=== PATIENT | female | born 1940 | race Caucasian/White ===

== ENCOUNTER 2016-11-23 09:56 | Emergency (ER) | payer OTHER ==
[~2016-11-23 09:56] MED LIST: AMLO2.5T PO; ASCO100061 PO; CALC-338 PO; CALC1TAB56 PO; CIPR-255 PO; FLUT0.0529 NAE; MULT-506 PO; PARO1TAB27 PO; SILDINJ PO; SIMV20TA2 PO; TYLOTC500 PO; WARF-246 PO; [UNRECOGNIZED DRUG - CODE] IV
[2016-11-23 10:00] VITALS: TEMP 36.6; Ht 176.5 cm
[2016-11-23 10:20] VITALS: O2SAT 97
[2016-11-23] MEDS ORDERED: ZNTT/150 PO (10:34)
[2016-11-23] MEDS ORDERED: RIOC1TAB7 PO (10:34)
--- NOTE | 2016-11-23 11:00 | EMERGENCY ROOM VISIT NOTE ---
History Report prepared by Nathalia: Arnav Vela Under the Supervision of: Dr. Abida Rodríguez D.O. First contact with patient: 10:11 Chief Complaint: RESPIRATORY PROBLEMS Stated Complaint: TROUBLE BREATHING History of Present Illness The patient is a 76 year old female who presents to the Emergency Room with complaints of persistent cough that started last night. The patient notes that she has been visiting her in the ICU all week, but has not been wearing a mask. She notes that last night when she returned home she started coughing and couldn't stop all night long. She notes that the cough is causing her lung discomfort and it is productive with green and brown phlegm. The patient notes that she has a history of pulmonary embolus and hypertension. She has been on medications for these and has been doing well. The patient had her flu shot this year. She denies nausea, vomiting, fever, or chills. The patient denies history of pneumonia or bronchitis. Source of History: patient Onset: last night Position: other (global) Associated Symptoms: No chills, No fevers, No nausea, No vomiting Note: Other associated symptoms: lung discomfort, productive with green and brown phlegm Review of Systems See HPI for pertinent positives & negatives. A total of 10 systems reviewed and were otherwise negative. Past Medical & Surgical Medical Problems: (1) Appendectomy (2) Cholecystectomy (3) Diverticulosis (4) Dyslipidemia (5) Gastroesophageal reflux disease (6) Heart disease (7) Hemorrhoidectomy (8) Hyperlipidemia (9) IBS (10) IVC filter placement (11) Osteoarthritis (12) Pulmonary embolism (13) Pulmonary hypertension (14) Venous insufficiency Surgical Problems: (1) colindres catheter changed (2) pulmonary artery embolectomy Family History Cancer FATHER GRANDFATHER GRANDMOTHER Diabetes mellitus SISTER Heart disease Kidney disease Lung disease Stroke MOTHER Social History Smoking Status: Never Smoker Alcohol Use: none Drug Use: none Marital Status: Housing Status: lives with significant other Occupation Status: retired Current/Historical Medications Scheduled Amlodipine (Norvasc), 2.5 MG PO DAILY Ascorbic Acid (Ascorbic Acid), 1,000 MG PO DAILY Azithromycin (Zithromax), 500 MG PO DAILY Calcium Citrate-Vitamin D (Citracal/Vitamin D), 1 TAB PO BID Calcium-Magnesium W/ Vitamin D (Citracal Calcium+D Slow R), 16.5 MG PO QAM Multivitamin (Multivitamin), 1 TAB PO DAILY Paroxetine (Paxil), 20 MG PO DAILY Ranitidine (Zantac), 150 MG PO BID Riociguat (Adempas), 2 MG PO TID Sildenafil Citrate (Revatio), 20 MG PO TID Simvastatin (Zocor), 20 MG PO HS Warfarin Sodium (Warfarin Sodium), 5 MG PO DIRECTED Warfarin Sodium (Warfarin Sodium), 2.5 MG PO WK Scheduled PRN Acetaminophen (Tylenol), 1,500 MG PO BID PRN for Pain Fluticasone Propionate (Nasal) (Flonase), 2 SPRAYS CHRISTINE DAILY PRN for HUMIDITY Allergies Coded Allergies: Nitrates, Organic (Unverified Allergy, Unknown, UNKNOWN, 11/23/16) Physical Exam Vital Signs Date Time Temp Pulse Resp B/P Pulse Ox O2 Delivery O2 Flow Rate FiO2 11/23/16 14:00 76 20 98/64 98 11/23/16 13:14 71 11/23/16 12:00 68 20 128/68 96 Room Air 11/23/16 10:20 97 Room Air 11/23/16 10:17 98 Room Air 11/23/16 10:11 77 11/23/16 10:00 36.6 87 18 129/77 97 Room Air Physical Exam HEENT: Head - normocephalic and atraumatic Pupils are equal, round, and reactive to light. Extraocular eye muscles are intact, and sclera are anicteric. Nose - moist nasal mucosa without discharge. Mouth - moist buccal mucosa. Oropharynx is nonerythematous and there is no tonsillar exudate or edema noted. Neck: Supple; no JVD, nuchal rigidity, cervical lymphadenopathy, or auscultated bruits. Heart: Regular rate and rhythm. There is a normal S1 and S2 with no murmurs, clicks, or gallops appreciated. Lungs: Clear to auscultation bilaterally with no wheezes, rales, or rhonchi. Abdomen: Soft, completely nontender, nondistended, with good bowel sounds. There are no palpable pulsatile masses or hepatosplenomegaly. There is no guarding, rigidity, or rebound noted. Extremities: No evidence of cyanosis, clubbing, or edema. There are easily palpable peripheral pulses. Skin: warm and dry with good turgor and no rashes. Medical Decision & Procedures ER Provider Diagnostic Interpretation: X-ray results as stated below per interpretation by me and the radiologist: CHEST 2 VIEWS ROUTINE HISTORY: cough COMPARISON: Chest 04/15/2015. FINDINGS: There are poststernotomy changes. The heart is top normal in size. Bibasilar interstitial thickening persists. No pleural effusions. No pneumothorax. The lungs are mildly hyperexpanded. No new focal lung consolidations. No evidence for pulmonary edema. There is a 4 mm nodular density within the left lung base adjacent to the cardiac apex. This was likely present on the prior study and does not appear to be significantly changed. IMPRESSION: 1. No change in the mild bibasilar interstitial thickening. Therefore, this is likely chronic. 2. No new focal lung consolidations to suggest pneumonia. 3. Mildly hyperexpanded lungs. 4. Stable 4 mm nodular density at the lingula. Electronically signed by: Dario Mobley M.D. 11/23/2016 11:56 AM Dictated Date/Time: 11/23/2016 11:53 AM Laboratory Results 11/23/16 10:10 Red Blood Count 4.36, Mean Corpuscular Volume 95.9, Mean Corpuscular Hemoglobin 31.9, Mean Corpuscular Hemoglobin Concent 33.3, Mean Platelet Volume 10.9, Neutrophils (%) (Auto) 53.8, Lymphocytes (%) (Auto) 33.3, Monocytes (%) (Auto) 11.4, Eosinophils (%) (Auto) 0.9, Basophils (%) (Auto) 0.4, Neutrophils # (Auto ) 2.45, Lymphocytes # (Auto) 1.52, Monocytes # (Auto) 0.52, Eosinophils # (Auto ) 0.04, Basophils # (Auto) 0.02 11/23/16 10:10 Test 11/23/16 10:10 White Blood Count 4.56 K/uL (4.8-10.8) Red Blood Count 4.36 M/uL (4.2-5.4) Hemoglobin 13.9 g/dL (12.0-16.0) Hematocrit 41.8 % (37-47) Mean Corpuscular Volume 95.9 fL (80-100) Mean Corpuscular Hemoglobin 31.9 pg (25-34) Mean Corpuscular Hemoglobin Concent 33.3 g/dl (32-36) Platelet Count 253 K/uL (130-400) Mean Platelet Volume 10.9 fL (7.4-10.4) Neutrophils (%) (Auto) 53.8 % Lymphocytes (%) (Auto) 33.3 % Monocytes (%) (Auto) 11.4 % Eosinophils (%) (Auto) 0.9 % Basophils (%) (Auto) 0.4 % Neutrophils # (Auto) 2.45 K/uL (1.4-6.5) Lymphocytes # (Auto) 1.52 K/uL (1.2-3.4) Monocytes # (Auto) 0.52 K/uL (0.11-0.59) Eosinophils # (Auto) 0.04 K/uL (0-0.5) Basophils # (Auto) 0.02 K/uL (0-0.2) RDW Standard Deviation 47.3 fL (36.4-46.3) RDW Coefficient of Variation 13.5 % (11.5-14.5) Immature Granulocyte % (Auto) 0.2 % Immature Granulocyte # (Auto) 0.01 K/uL (0.00-0.02) Prothrombin Time 28.2 SECONDS (9.0-12.0) Prothromb Time International Ratio 2.5 (0.9-1.1) Activated Partial Thromboplast Time 42.0 SECONDS (21.0-31.0) Partial Thromboplastin Ratio 1.6 Anion Gap 12.0 mmol/L (3-11) Estimated GFR () 70.6 Estimated GFR (Non- 60.9 BUN/Creatinine Ratio 10.7 (10-20) Calcium Level 9.2 mg/dl (8.5-10.1) ,lab Medications Administered Medications (Trade) Dose Ordered Sig/Tiffany Route Start Time Stop Time Status Last Admin Dose Admin Ceftriaxone Sodium (Rocephin Inj) 1 gm NOW STAT IV 11/23/16 12:27 11/23/16 12:29 DC 11/23/16 12:55 1 GM Azithromycin (Zithromax Tab) 500 mg NOW STAT PO 11/23/16 12:29 11/23/16 12:30 DC 11/23/16 12:55 500 MG Procedure Medications: Rocephin Inj IV, Zithromax Tab PO. ECG Indication: SOB/dyspnea Rate (beats per minute): 68 Rhythm: normal sinus Findings: T-wave inversion (Anterior), no ectopy Change: no significant change ED Course 1031: Past medical records reviewed. The patient was evaluated in room B10. A complete history and physical exam was performed. 1113: At this time, I discussed the patient's case with her PCP from [facility] who agreed with the patient's history and the treatment plan. 1215: At this time, I reevaluated the patient and she notes that she does not want to stay in the hospital. 1227: Ordered Rocephin Inj 1 gm IV. 1229: Ordered Zithromax Tab PO. 1325: Upon reevaluation, the patient is resting comfortably. I discussed findings and results with her. She verbalized agreement of the treatment plan. The patient was discharged home. Medical Decision The patient is a 76 year old female who presents to the ED with a cough. Differential diagnosis includes pneumonia, bronchitis, CHF. Labs: White count 4.5, stable h&h, potassium 3.4, normal renal function, glucose 126, INR 2. 5. This is a 76-year-old female patient with history of pulmonary hypertension and PE. She has recently been visiting her in the ICU at [facility] and developed a cough last night. She denies any shortness of breath or chest pain. She simply states that she has this cough is productive of green/brown sputum. Chest x-ray shows no evidence of a pneumonia. She is afebrile here and has no leukocytosis. I had talked to the patient's doctor from the [facility]. She suggested that these types of patients might be treated aggressively when it comes to infection. I reviewed this with the patient and we discussed the possibility of admission into the hospital. We also talked about the hazards of admission and [facility]-acquired infections. Patient was given a dose of IV Rocephin and oral Zithromax. She'll be continued on a 6 day course of Zithromax. I suggested that the patient return to the emergency room for any mutilation develops any worsening symptoms such as fever, chest pain, shortness of breath or worsening cough. She declined wanting any type of cough medication. Consults Time Called: [phone] Consulting Physician: PCP - [facility] Returned Call: 1113 t this time, I discussed the patient's case with her PCP from [facility] who agreed with the patient's history and the treatment plan. Impression Primary Impression: Bronchitis Scribe Attestation The scribe's documentation has been prepared under my direction and personally reviewed by me in its entirety. I confirm that the note above accurately reflects all work, treatment, procedures, and medical decision making performed by me. Departure Information Dispostion Home / Self-Care Prescriptions Azithromycin (Zithromax) 500 Mg Tab 500 MG PO DAILY, #6 TAB Prov: Abida Rodríguez DShanda. 11/23/16 Referrals Bishop Foley M.D. (MEDICAL) (PCP) Forms HOME CARE DOCUMENTATION FORM, IMPORTANT VISIT INFORMATION, WORK / SCHOOL INSTRUCTIONS Patient Instructions My [facility] Additional Instructions Rest Take Zithromax daily If you develop any worsening symptoms, return to the ER You will need to have your INR checkd on Saturday
[2016-11-23 11:01] LABS: BASO % 0.4 %; BASO ABS # 0.02 K/uL (0-0.2); COMPLETE YES; EOS % 0.9 %; HEMATOCRIT 41.8 % (37-47); IG% 0.2 %; LYMPH % 33.3 %; LYMPH ABS # 1.52 K/uL (1.2-3.4); MEAN CELL VOLUME 95.9 fL (80-100); MEAN CORPUSCULAR HEMOGLOBIN 31.9 pg (25-34); MEAN CORPUSCULAR HGB CONC 33.3 g/dl (32-36); MEAN PLATELET VOLUME 10.9 fL (7.4-10.4); MONO % 11.4 %; NEUT % 53.8 %; PLATELET COUNT 253 K/uL (130-400); RED BLOOD COUNT 4.36 M/uL (4.2-5.4); WHITE BLOOD COUNT 4.56 K/uL (4.8-10.8)
[2016-11-23 11:08] LABS: INR 2.5 (0.9-1.1); PARTIAL THROMBOPLASTIN RATIO 1.6; PROTHROMBIN TIME (PATIENT) 28.2 SECONDS (9.0-12.0)
[2016-11-23 11:18] LABS: BLOOD UREA NITROGEN 10 mg/dl (7-18); BUN/CREATININE RATIO 10.7 (10-20); CALCIUM 9.2 mg/dl (8.5-10.1); CARBON DIOXIDE 25 mmol/L (21-32); CHLORIDE 106 mmol/L (98-107); CREATININE 0.92 mg/dl (0.60-1.20); GLUCOSE 126 mg/dl (70-99); POTASSIUM 3.4 mmol/L (3.5-5.1); SODIUM 143 mmol/L (136-145)
--- NOTE | 2016-11-23 11:58 | DIAGNOSTIC IMAGING REPORT ---
CHEST 2 VIEWS ROUTINE HISTORY: cough COMPARISON: Chest 04/15/2015. FINDINGS: There are poststernotomy changes. The heart is top normal in size. Bibasilar interstitial thickening persists. No pleural effusions. No pneumothorax. The lungs are mildly hyperexpanded. No new focal lung consolidations. No evidence for pulmonary edema. There is a 4 mm nodular density within the left lung base adjacent to the cardiac apex. This was likely present on the prior study and does not appear to be significantly changed. IMPRESSION: 1. No change in the mild bibasilar interstitial thickening. Therefore, this is likely chronic. 2. No new focal lung consolidations to suggest pneumonia. 3. Mildly hyperexpanded lungs. 4. Stable 4 mm nodular density at the lingula. Electronically signed by: Dario Mobley M.D. 11/23/2016 11:56 AM Dictated Date/Time: 11/23/2016 11:53 AM
[2016-11-23] MEDS ORDERED: CEFTRIAXONE SOD INJ 1 GM ADDVIAL IV STA (12:27)
[2016-11-23] MEDS ORDERED: AZITHROMYCIN 250 MG TAB PO STA (12:29)
[2016-11-23] MEDS ORDERED: AZIT500T26 PO (13:16)
[2016-11-23 14:00] VITALS: BP 98/64; PULSE 76; O2SAT 98
== END 2016-11-23 14:04 | disposition home or self-care (01) ==
LOC: C.EDB 09:57
DX: J40 Bronchitis, not specified as acute or chronic (principal); Z86.711 Personal history of pulmonary embolism; I10 Essential (primary) hypertension; Z79.899 Other long term (current) drug therapy; Z90.49 Acquired absence of other specified parts of digestive tract; K21.9 Gastro-esophageal reflux disease without esophagitis; E78.5 Hyperlipidemia, unspecified; K58.9 Irritable bowel syndrome, unspecified; I27.2 Other secondary pulmonary hypertension; Z83.3 Family history of diabetes mellitus; Z82.3 Family history of stroke; Z79.01 Long term (current) use of anticoagulants

== ENCOUNTER 2017-06-14 17:04 | Emergency (ER) | payer OTHER ==
[~2017-06-14] VITALS: Ht 176.5 cm; Wt 77.4 kg
[~2017-06-14 17:04] MED LIST changes: -CIPR-255 PO; +RIOC1TAB7 PO; +ZNTT/150 PO; -[UNRECOGNIZED DRUG - CODE] IV
[2017-06-14 17:19] VITALS: TEMP 36.8; Ht 176.5 cm; Wt 77.4 kg
[2017-06-14] MEDS ORDERED: MoRPHine SULFATE 4 MG/ML 1 ML CARP\\VIAL IV STA (17:25)
[2017-06-14] MEDS ORDERED: ONDANSETRON INJ 2 MG/ML 2 ML VIAL IV STA (17:25)
[2017-06-14] MEDS ORDERED: OPTIRAY 320 IV PRN (17:30)
[2017-06-14] MEDS ORDERED: CALC-279 PO (17:40)
[2017-06-14] MEDS ORDERED: FLUT0.15 NAE (17:40)
[2017-06-14 18:21] LABS: BASO % 0.2 %; BASO ABS # 0.02 K/uL (0-0.2); COMPLETE YES; EOS % 0.7 %; HEMATOCRIT 40.4 % (37-47); IG% 0.2 %; LYMPH % 22.2 %; LYMPH ABS # 1.91 K/uL (1.2-3.4); MEAN CELL VOLUME 94.6 fL (80-100); MEAN CORPUSCULAR HEMOGLOBIN 31.6 pg (25-34); MEAN CORPUSCULAR HGB CONC 33.4 g/dl (32-36); MEAN PLATELET VOLUME 10.3 fL (7.4-10.4); MONO % 6.5 %; NEUT % 70.2 %; PLATELET COUNT 269 K/uL (130-400); RED BLOOD COUNT 4.27 M/uL (4.2-5.4)
[2017-06-14 18:31] LABS: PARTIAL THROMBOPLASTIN RATIO 1.4; PROTHROMBIN TIME (PATIENT) 22.4 SECONDS (9.0-12.0)
[2017-06-14 18:38] LABS: ISTAT CREATININE 0.7 mg/dl (0.6-1.3); ISTAT HEMOGLOBIN 13.6 g/dl (12.0-16.0); ISTAT IONIZED CALCIUM 1.14 mmol/l (1.12-1.32)
[2017-06-14 18:44] LABS: BUN/CREATININE RATIO 14.9 (10-20); CALCIUM 9.3 mg/dl (8.5-10.1); CREATININE 0.81 mg/dl (0.60-1.20); POTASSIUM 3.6 mmol/L (3.5-5.1)
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
[2017-06-14] MEDS ORDERED: OXYC1TAB3 PO (19:38)
[2017-06-14] MEDS ORDERED: OXYCODONE IR HOME PACK PO ONE (19:45)
[2017-06-14 20:23] VITALS: BP 133/79; PULSE 68; O2SAT 95
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
== END 2017-06-14 20:25 | disposition home or self-care (01) ==
LOC: EDBD 17:04 → C.EDB 17:05
DX: S20.219A Contusion of unspecified front wall of thorax, initial encounter (principal); S62.001A Unspecified fracture of navicular [scaphoid] bone of right wrist, initial encounter for closed fracture; V89.2XXA Person injured in unspecified motor-vehicle accident, traffic, initial encounter; Y92.488 Other paved roadways as the place of occurrence of the external cause; Y93.89 Activity, other specified; Z79.01 Long term (current) use of anticoagulants; Z90.49 Acquired absence of other specified parts of digestive tract; E78.5 Hyperlipidemia, unspecified; K21.9 Gastro-esophageal reflux disease without esophagitis; K58.9 Irritable bowel syndrome, unspecified; M19.90 Unspecified osteoarthritis, unspecified site; Z86.711 Personal history of pulmonary embolism; I27.0 Primary pulmonary hypertension; Z80.9 Family history of malignant neoplasm, unspecified; Z83.3 Family history of diabetes mellitus; Z84.1 Family history of disorders of kidney and ureter; Z82.3 Family history of stroke; Z79.899 Other long term (current) drug therapy

== ENCOUNTER 2018-05-09 13:35 | Observation (INO) | payer OTHER ==
[~2018-05-09] VITALS: Ht 175.3 cm; Wt 77.2 kg
[~2018-05-09 13:35] MED LIST changes: +CALC-279 PO; -CALC-338 PO; -FLUT0.0529 NAE; +FLUT0.15 NAE; +RANI150T85 PO; -SILDINJ PO; -ZNTT/150 PO
[2018-05-09] MEDS ORDERED: ONDANSETRON INJ 2 MG/ML 2 ML VIAL IV STA (13:50)
[2018-05-09] MEDS ORDERED: MoRPHine SULFATE 4 MG/ML 1 ML CARP\\VIAL IV STA ×2 (13:50→15:29)
[2018-05-09 14:00] LABS: BASO % 0.1 %; BASO ABS # 0.01 K/uL (0-0.2); EOS % 0.5 %; EOS ABS # 0.04 K/uL (0-0.5); HEMATOCRIT 40.1 % (37-47); HEMOGLOBIN 13.6 g/dL (12.0-16.0); IG# 0.01 K/uL (0.00-0.02); LYMPH % 21.4 %; LYMPH ABS # 1.64 K/uL (1.2-3.4); MEAN CELL VOLUME 91.3 fL (80-100); MEAN CORPUSCULAR HGB CONC 33.9 g/dl (32-36); MONO % 7.7 %; MONO ABS # 0.59 K/uL (0.11-0.59); NEUT % 70.2 %; NEUT ABS # 5.37 K/uL (1.4-6.5); PLATELET COUNT 266 K/uL (130-400); RED CELL DISTRIBUTION WIDTH CV 13.6 % (11.5-14.5); RED CELL DISTRIBUTION WIDTH SD 45.4 fL (36.4-46.3); WHITE BLOOD COUNT 7.66 K/uL (4.8-10.8)
--- NOTE | 2018-05-09 14:11 | DIAGNOSTIC IMAGING REPORT ---
CHEST ONE VIEW PORTABLE CLINICAL HISTORY: cp eval for ptx COMPARISON STUDY: Chest CT June 14, 2017. FINDINGS: Median sternotomy wires are noted. Cardiomediastinal silhouette is stable. No pneumothorax or pleural effusion is noted. No consolidation is identified to suggest pneumonia. The appearance of the chest is unchanged. IMPRESSION: No acute cardiopulmonary findings. Electronically signed by: Paolo Kim M.D. 05/09/2018 2:10 PM Dictated Date/Time: 05/09/2018 2:07 PM
[2018-05-09 14:18] LABS: BLOOD UREA NITROGEN 11 mg/dl (7-18); CALCIUM 9.2 mg/dl (8.5-10.1); CARBON DIOXIDE 24 mmol/L (21-32); CREATININE 0.84 mg/dl (0.60-1.20); GLUCOSE 98 mg/dl (70-99); POTASSIUM 3.7 mmol/L (3.5-5.1); SODIUM 139 mmol/L (136-145)
[2018-05-09 14:19] LABS: PTT PATIENT 46.8 SECONDS (21.0-31.0)
[2018-05-09] MEDS ORDERED: IV FLUIDS COMPLETED PRN (15:15)
[2018-05-09] MEDS ORDERED: MoRPHine SULFATE 2 MG/ML CARP ONE (15:32)
[2018-05-09] MEDS ORDERED: OPTIRAY 320 IV PRN (16:15)
--- NOTE | 2018-05-09 16:34 | DIAGNOSTIC IMAGING REPORT ---
CT ANGIOGRAM OF THE CHEST COMBO; CT ANGIOGRAM OF THE ABDOMEN AND PELVIS CLINICAL HISTORY: Atypical chest pain. COMPARISON STUDY: Abdominal CT dated 06/14/2017. Chest CT scans dated 06/14/2017 and 04/15/2015. TECHNIQUE: Unenhanced CT scan of the chest is performed. Following the IV administration of 118 cc of Optiray 320, CT angiogram of the chest, abdomen, and pelvis was performed from the thoracic inlet to the proximal femora. Images are reviewed in the axial, sagittal, and coronal planes. 3-D MIPS images are created and assessed. IV contrast was administered without complication. A dose lowering technique was utilized adhering to the principles of ALARA. CT DOSE: 718.06 mGy.cm FINDINGS: CHEST: Thyroid: Imaged portions of the thyroid gland are normal in size and heterogeneous in attenuation. A low-attenuation nodule in the isthmus measures up to 11 mm. This is unchanged from previous. Thoracic aorta: No intramural hematoma is seen on the unenhanced series. There is mild atherosclerotic calcification of the thoracic aorta, which is caliber and demonstrates standard 3-vessel anatomy. No dissection is seen. The arch vessels are widely patent. Pulmonary vasculature: The pulmonary trunk is normal in caliber. There are no filling defects identified in the main, lobar, or segmental pulmonary arteries to indicate pulmonary embolus. Heart: The patient is status post midline sternotomy. The heart is mildly enlarged and without pericardial effusion. There are coronary artery calcifications. Lungs and pleural spaces: There is trace right pleural effusion. Bibasilar scarring/atelectasis is observed. There is no airspace consolidation typical for pneumonia. There is a 6 mm right upper lobe nodule seen image #73. A 5 mm pleural-based nodule in the lingula is seen image #219. These are similar to the 06/14/2017 examination. The pleural-based lingular nodule is unchanged dating back to 2014. The trachea and central airways are clear. Mediastinum: There is no mediastinal lymphadenopathy. Jenniffer: Clear. Axillae: There is no axillary lymphadenopathy. Bony thorax: The skeletal structures are osteopenic. Degenerative change is noted throughout the thoracic spine and in the shoulders. No lytic or blastic Lesions are identified. ABDOMEN AND PELVIS: Liver: The contrast-enhanced liver is normal in size, contour, and attenuation. There is mild central intrahepatic biliary ductal dilatation. The main portal veins appear patent. Gallbladder: Surgically absent. Spleen: Normal in size and attenuation noting heterogeneous arterial phase enhancement. Pancreas: Unremarkable. Adrenal glands: Unremarkable. Kidneys: The contrast enhanced kidneys are normal in size and without hydronephrosis. The kidneys enhance symmetrically. Abdominal aorta and iliac arteries: There is mild atherosclerotic calcification of the abdominal aorta which is normal in caliber. The abdominal aorta is widely patent. No dissection is seen. The iliac vessels are widely patent bilaterally and normal in caliber. An infrarenal IVC filter is in place. Major branches of the abdominal aorta: The celiac trunk, superior mesenteric, and inferior mesenteric arteries are widely patent. Hepatic arterial anatomy is conventional. The splenic artery is patent. Single bilateral renal arteries are widely patent. An accessory branch arising from the celiac trunk extends along the dome of the liver just below the diaphragm. Bowel: There is mild to moderate sigmoid diverticulosis without CT evidence of acute diverticulitis. No bowel obstruction is seen. The appendix is not identified and reported surgically absent. Peritoneum: There is no intraperitoneal free air or abdominal ascites. There is a small fat-containing umbilical hernia. Lymphadenopathy: None. Pelvic viscera: The bladder is decompressed and grossly unremarkable. There are calcified uterine fibroids. No adnexal lesion is seen. Skeletal structures: The skeletal structures are osteopenic. Advanced arthritic change is seen in the hips. There is moderate to advanced lumbosacral spondylosis and scoliosis. A large hemangioma is seen in the body of L3. No lytic or blastic bony lesions are seen. IMPRESSION: 1. There is no aneurysm or dissection identified involving the thoracic or abdominal aorta. 2. There is no evidence of pulmonary embolus in the main, lobar, or segmental pulmonary arteries. 3. Trace right pleural effusion. There is no airspace consolidation typical for pneumonia. 4. There are no acute infectious or inflammatory findings in the abdomen or pelvis. 5. Unremarkable CT angiogram of the major branches of the abdominal aorta. 6. There is a 6 mm right upper lobe pulmonary nodule. This has not significantly changed from 06/14/2017 but is new from 04/15/2015. Continued attention at follow-up is recommended. See below. 7. Fibroid uterus. 8. Sigmoid diverticulosis without CT evidence of acute diverticulitis. 9. Additional findings as above. Please refer to below summary of Fleischner criteria recommendations for follow-up of incidental CT nodules (Flaca Toro, Guidelines for management of small pulmonary nodules detected on CT scans: A statement from the Fleischner Society, Radiology 237: [id number].) SOLID NODULES Solitary nodule size: <6 mm * low risk patients: no follow-up needed * high risk patients: optional CT at 12 months Solitary nodule size: 6-8 mm * low risk patients: follow-up at 6-12 months, then consider further follow-up at 18-24 months * high risk patients: initial follow-up CT at 6-12 months and then at 18-24 months if no change Solitary nodule size: >8 mm * either low or high risk patients - consider follow-up CT at 3 months, and/or CT-PET, and/or biopsy Multiple nodules size: <6 mm * low risk patients: no routine follow-up * high risk patients: optional CT at 12 months Multiple nodules size: 6-8 mm * low risk patients: follow-up at 3-6 months, then consider further follow-up at 18-24 months * high risk patients: follow-up at 3-6 months, then at 18-24 months if no change Multiple nodules size: >8 mm * low risk patients: follow-up at 3-6 months, then consider further follow-up at 18-24 months * high risk patients: follow-up at 3-6 months, then at 18-24 months if no change Note: newly detected indeterminate nodule in persons 35 years of age or older. * low risk patients: minimal or absent history of smoking and/or other known risk factors * high risk patients: history of smoking or of other known risk factors (e.g. first degree relative with lung cancer, or exposure to asbestos, radon, uranium) * if a nodule up to 8 mm is partly solid or is ground glass further follow-up is required after 24 months to exclude possible slow growing adenocarcinoma (RITA) SUBSOLID NODULES Solitary pure ground-glass nodule * nodule size <6 mm - no CT follow-up required * nodule size >=6 mm - follow-up CT at 6-12 months, then every 2 years until 5 years Solitary part-solid nodule * nodule size <6 mm - no CT follow-up required * nodule size >=6 mm - follow-up CT at 3-6 months. If unchanged, and solid component remains <6 mm, then annual follow-up for 5 years Multiple subsolid nodules * nodule size <6 mm - follow-up CT at 3-6 months, consider further follow-up at 2 and 4 years if stable * nodule size >=6 mm - follow-up CT at 3-6 months, subsequent management based on the most suspicious nodule(s) Electronically signed by: Cesar Davila M.D. 05/09/2018 4:33 PM Dictated Date/Time: 05/09/2018 4:16 PM
--- NOTE | 2018-05-09 16:48 | Progress Note ---
Medicine Progress Note Date & Time of Visit: May 09, 2018 at 16:48. Objective Last 8 Hrs Date Time Temp Pulse Resp B/P (MAP) Pulse Ox O2 Delivery O2 Flow Rate FiO2 05/09/18 15:37 79 20 120/79 94 Room Air 05/09/18 15:30 78 20 133/81 96 Room Air 05/09/18 14:31 80 20 125/73 94 Room Air 05/09/18 14:02 96 Room Air 05/09/18 13:51 93 05/09/18 13:50 92 16 113/69 97 Room Air 05/09/18 13:41 94 20 128/89 96 Room Air Physical Exam: General-[] Eyes-[] ENT-[] Neck-[] Lungs-[] Heart-[] Abdomen-[] Extremities-[] Neuro-[] Laboratory Results: Last 24 Hours Test 05/09/18 13:52 05/09/18 13:59 White Blood Count 7.66 K/uL Red Blood Count 4.39 M/uL Hemoglobin 13.6 g/dL Hematocrit 40.1 % Mean Corpuscular Volume 91.3 fL Mean Corpuscular Hemoglobin 31.0 pg Mean Corpuscular Hemoglobin Concent 33.9 g/dl Platelet Count 266 K/uL Mean Platelet Volume 10.0 fL Neutrophils (%) (Auto) 70.2 % Lymphocytes (%) (Auto) 21.4 % Monocytes (%) (Auto) 7.7 % Eosinophils (%) (Auto) 0.5 % Basophils (%) (Auto) 0.1 % Neutrophils # (Auto) 5.37 K/uL Lymphocytes # (Auto) 1.64 K/uL Monocytes # (Auto) 0.59 K/uL Eosinophils # (Auto) 0.04 K/uL Basophils # (Auto) 0.01 K/uL RDW Standard Deviation 45.4 fL RDW Coefficient of Variation 13.6 % Immature Granulocyte % (Auto) 0.1 % Immature Granulocyte # (Auto) 0.01 K/uL Prothrombin Time 30.8 SECONDS Prothromb Time International Ratio 3.0 Activated Partial Thromboplast Time 46.8 SECONDS Partial Thromboplastin Ratio 1.8 Sodium Level 139 mmol/L Potassium Level 3.7 mmol/L Chloride Level 106 mmol/L Carbon Dioxide Level 24 mmol/L Anion Gap 9.0 mmol/L Blood Urea Nitrogen 11 mg/dl Creatinine 0.84 mg/dl Estimated GFR () 78.2 Estimated GFR (Non- 67.5 BUN/Creatinine Ratio 12.9 Random Glucose 98 mg/dl Calcium Level 9.2 mg/dl Bedside Troponin I < 0.030 ng/ml Assessment & Plan Current Inpatient Medications: Current Inpatient Medications Medications (Trade) Dose Ordered Sig/Tiffany Route Start Time Stop Time Status Last Admin Dose Admin Acetaminophen (Tylenol Tab) 650 mg Q4H PRN PO 05/09/18 15:00 06/08/18 14:59 Miscellaneous (Iv Fluids Completed) 1 ea PRN PRN N/A 05/09/18 15:15 05/09/19 15:14 Ioversol (Optiray 320) 100 ml UD PRN IV 05/09/18 16:15 05/13/18 16:14
--- NOTE | 2018-05-09 16:49 | History and Physical ---
History & Physical Date & Time of Service: May 09, 2018 at 16:48 . Chief Complaint: chest pain . Primary Care Physician: Carin Lebron D.O. . History of Present Illness Source: patient, clinic records, hospital records 77-year-old female followed by Dr. Lebron. History of pulmonary embolism, status post surgical thrombectomy with subsequent pulmonary hypertension. Has been on chronic warfarin therapy. Status post [place] filter placement. 2 days ago she experienced chest pain or resting in bed. Chest pain described as sharp anterior chest pain associated with some shortness of breath and sweats. Pain seemed to radiate to her right arm. She took some Tylenol and the pain resolved after about 15 minutes. Last night she had similar symptoms, again relieved by Tylenol. Today she experienced more severe anterior chest pain, worse with deep inspiration. She felt somewhat short of breath. Noted some nausea, no emesis. Today when she took Tylenol, there was no relief of the pain. She called clinic was referred to the ED for further evaluation. Persistent chest pain upon arrival to the ED. Did not take nitrates due to therapy with riociguat. Received IV morphine with relief of her pain. . Past Medical/Surgical History Chronic and Resolved Medical Problems: (1) Diverticular disease of colon Status: Chronic (2) Dyslipidemia Status: Chronic (3) Gastroesophageal reflux disease Status: Chronic (4) History of colonic diverticulitis Status: Chronic (5) History of pulmonary embolism Status: Chronic (6) IVC filter placement Status: Chronic (7) Osteoarthritis Status: Chronic (8) Pulmonary hypertension Status: Chronic (9) Scaphoid fracture Status: Resolved (10) Venous insufficiency Status: Chronic Surgical Problems: (1) History of embolectomy Permanent Comment: for pulmonary embolism Status: Chronic (2) History of vascular access device Permanent Comment: Krueger cath, removed Status: Chronic (3) Status post appendectomy Status: Chronic (4) Status post cholecystectomy Status: Chronic (5) Status post insertion of inferior vena caval filter Status: Chronic . Family History Cancer FATHER GRANDFATHER GRANDMOTHER Diabetes mellitus SISTER Heart disease Kidney disease Lung disease Stroke MOTHER Social History Smoking Status: Never Smoker Alcohol Use: none Drug Use: none Marital Status: Housing status: lives with family Occupational Status: retired Immunizations History of Influenza Vaccine: Yes History of Tetanus Vaccine?: Yes Tetanus Immunization Date: Aug 11, 2004 History of Pneumococcal: Yes Pneumococcal Date: Aug 11, 2004 History of Hepatitis B Vaccine: No Allergies Coded Allergies: Nitrates, Organic (Unverified Allergy, Unknown, UNKNOWN, 05/09/18) Home Medications Scheduled Amlodipine (Norvasc), 2.5 MG PO DAILY Ascorbic Acid (Ascorbic Acid), 1,000 MG PO DAILY Calcium-Magnesium W/ Vitamin D (Citracal Calcium+D Slow R), 1 TAB PO QAM Multivitamin (Multivitamin), 1 TAB PO DAILY Paroxetine Hcl (Paxil), 20 MG PO DAILY Riociguat (Adempas), 2 MG PO TID Simvastatin (Zocor), 20 MG PO HS Warfarin Sodium (Warfarin Sodium), 0 PO UD Scheduled PRN Acetaminophen (Tylenol), 1,500 MG PO BID PRN for Pain Fluticasone Propionate (Nasal) (Flonase Allergy Relief), 2 SPRAYS CHRISTINE DAILY PRN for Allergic Reaction Review of Systems CONSTITUTIONAL no fever no weight loss EYES no acute visual changes EARS, NOSE, MOUTH, AND THROAT no hearing loss + sinus congestion no pharyngitis CARDIOVASCULAR as noted above in HPI RESPIRATORY as noted above in HPI GASTROINTESTINAL + nausea, no vomiting no diarrhea no constipation no melena or hematochezia GENITOURINARY no dysuria one episode of hematuria about 1 month ago MUSCULOSKELETAL low back pain chronic knee & hip pain INTEGUMENTARY no rash no new / changing lesions NEUROLOGIC no headaches no focal neurologic symptoms ENDOCRINE no polyuria or polydipsia HEMATOLOGIC / LYMPHATIC bruises easily no adenopathy . Physical Exam Vital Signs Date Time Temp Pulse Resp B/P (MAP) Pulse Ox O2 Delivery O2 Flow Rate FiO2 05/09/18 15:37 79 20 120/79 94 Room Air 05/09/18 15:30 78 20 133/81 96 Room Air 05/09/18 14:31 80 20 125/73 94 Room Air 05/09/18 14:02 96 Room Air 05/09/18 13:51 93 05/09/18 13:50 92 16 113/69 97 Room Air 05/09/18 13:41 94 20 128/89 96 Room Air CONSTITUTIONAL vital signs as noted above well-developed, well-nourished, no acute distress EYES conjunctivae clear; lids normal pupils equal and reactive to light EARS, NOSE, MOUTH AND THROAT external inspection of ears and nose unremarkable hearing grossly intact to spoken voice oropharynx clear NECK no masses; trachea midline thyroid normal RESPIRATORY normal respiratory effort; no respiratory distress clear to percussion clear to auscultation CARDIOVASCULAR regular rate and rhythm no murmur, gallop, rub appreciated carotid arteries 2/2 radial and pedal pulses intact and symmetric no pretibial edema GASTROINTESTINAL moderate mid abdominal tenderness normal bowel sounds, soft no palpable masses no hepatomegaly; no splenomegaly LYMPHATIC no cervical adenopathy MUSCULOSKELETAL no cyanosis; no digital clubbing no calf tenderness motor strength extremities grossly intact SKIN no rash warm and dry NEUROLOGIC PERRL, EOMI, no facial palsy, no dysarthria, tongue midline patellar DTR's 2/2 PSYCHIATRIC oriented to person, place, time mood and affect appropriate . Diagnostics Laboratory Results Results Past 24 Hours Test 05/09/18 13:52 05/09/18 13:59 Range/Units White Blood Count 7.66 4.8-10.8 K/uL Red Blood Count 4.39 4.2-5.4 M/uL Hemoglobin 13.6 12.0-16.0 g/dL Hematocrit 40.1 37-47 % Mean Corpuscular Volume 91.3 80-100 fL Mean Corpuscular Hemoglobin 31.0 25-34 pg Mean Corpuscular Hemoglobin Concent 33.9 32-36 g/dl Platelet Count 266 130-400 K/uL Mean Platelet Volume 10.0 7.4-10.4 fL Neutrophils (%) (Auto) 70.2 % Lymphocytes (%) (Auto) 21.4 % Monocytes (%) (Auto) 7.7 % Eosinophils (%) (Auto) 0.5 % Basophils (%) (Auto) 0.1 % Neutrophils # (Auto) 5.37 1.4-6.5 K/uL Lymphocytes # (Auto) 1.64 1.2-3.4 K/uL Monocytes # (Auto) 0.59 0.11-0.59 K/uL Eosinophils # (Auto) 0.04 0-0.5 K/uL Basophils # (Auto) 0.01 0-0.2 K/uL RDW Standard Deviation 45.4 36.4-46.3 fL RDW Coefficient of Variation 13.6 11.5-14.5 % Immature Granulocyte % (Auto) 0.1 % Immature Granulocyte # (Auto) 0.01 0.00-0.02 K/uL Prothrombin Time 30.8 9.0-12.0 SECONDS Prothromb Time International Ratio 3.0 0.9-1.1 Activated Partial Thromboplast Time 46.8 21.0-31.0 SECONDS Partial Thromboplastin Ratio 1.8 Sodium Level 139 136-145 mmol/L Potassium Level 3.7 3.5-5.1 mmol/L Chloride Level 106 98-107 mmol/L Carbon Dioxide Level 24 21-32 mmol/L Anion Gap 9.0 3-11 mmol/L Blood Urea Nitrogen 11 7-18 mg/dl Creatinine 0.84 0.60-1.20 mg/dl Estimated GFR () 78.2 Estimated GFR (Non- 67.5 BUN/Creatinine Ratio 12.9 10-20 Random Glucose 98 70-99 mg/dl Calcium Level 9.2 8.5-10.1 mg/dl Bedside Troponin I < 0.030 0-0.045 ng/ml Diagnostic Radiology CHEST ONE VIEW PORTABLE FINDINGS: Median sternotomy wires are noted. Cardiomediastinal silhouette is stable. No pneumothorax or pleural effusion is noted. No consolidation is identified to suggest pneumonia. The appearance of the chest is unchanged. IMPRESSION: No acute cardiopulmonary findings. Electronically signed by: Paolo Kim M.D. 05/09/2018 2:10 PM Dictated Date/Time: 05/09/2018 2:[address] ANGIOGRAM OF THE CHEST COMBO; CT ANGIOGRAM OF THE ABDOMEN AND PELVIS IMPRESSION: 1. There is no aneurysm or dissection identified involving the thoracic or abdominal aorta. 2. There is no evidence of pulmonary embolus in the main, lobar, or segmental pulmonary arteries. 3. Trace right pleural effusion. There is no airspace consolidation typical for pneumonia. 4. There are no acute infectious or inflammatory findings in the abdomen or pelvis. 5. Unremarkable CT angiogram of the major branches of the abdominal aorta. 6. There is a 6 mm right upper lobe pulmonary nodule. This has not significantly changed from 06/14/2017 but is new from 04/15/2015. Continued attention at follow-up is recommended. See below. 7. Fibroid uterus. 8. Sigmoid diverticulosis without CT evidence of acute diverticulitis. 9. Additional findings as above. Electronically signed by: Cesar Davila M.D. 05/09/2018 4:33 PM Dictated Date/Time: 05/09/2018 4:16 PM . EKG EKG performed at 13:43 reviewed and demonstrated NSR at 90 / minute, intraventricular conduction delay, inverted T-waves V2-3, ST depression V3-6. Tracing was similar to one performed on 06/14/17 with differences that could be attributed to lead placement. . Impression Assessment and Plan CHEST PAIN First serum troponin normal. EKG similar to previous tracings. No apparent pulmonary embolism per CTA. No apparent aortic dissection per CTA. Check repeat serum troponin. Check echocardiogram. PULMONARY HYPERTENSION Continue riociguat. Avoid nitrates. HEMATURIA 1 episode of gross hematuria a few weeks prior to admission. Outpatient CT did not show any pathology. CT today did not show any apparent renal masses or other urinary tract pathology. Will need further evaluation if hematuria recurs. VTE PROPHYLAXIS / HISTORY PULMONARY EMBOLISM Continue warfarin. RESUSCITATION STATUS Discussed with patient and her sister. She has a living will. Patient states that she prefers a natural/comfortable passing and does not want extraordinary measures undertaken at end-of-life, including CPR, mechanical ventilation, or other interventions. Therefore, code status = "Level 5" (DNR). DISPOSITION Observation status on Telemetry Unit. Family Medicine follow-up with Dr. Lebron. . Resuscitation Status VTE Prophylaxis Will order VTE Prophylaxis: Yes
--- NOTE | 2018-05-09 16:55 | EMERGENCY ROOM VISIT NOTE ---
History Report prepared by Nathalia: Mallika Faria Under the Supervision of: Dr. Sukumar Garcia M.D. First contact with patient: 13:39 Chief Complaint: CHEST PAIN Stated Complaint: CHEST PAIN & ARM PAIN History of Present Illness The patient is a 77 year old female who presents to the Emergency Room with complaints of intermittent chest pain for 3 days. The patient states that her chest pain has only been at night for the past 3 days and goes away by the time she gets up. She reports that today she got it out of nowhere starting an hour ago. She reports that the pain is a sharp pain and breathing makes it worse. She states that she called her PCP to schedule an appointment for Saturday, but they told her to come to the ED. The patient notes that she has a history of PEs that required surgery to have them removed. She reports that she had a Colindres in and was on a medication for 10 years before removing the Colindres and starting her on Adempas. The patient notes that this pain does not feel the same as her past PEs and notes that she has been taking her Coumadin. The patient complains of weakness in her legs, abdominal pain starting 2 months ago , and hematuria. She reports that she had a CT scan done last Saturday at [facility] of her abdomen. She notes that she has had a cholecystectomy and appendectomy. The patient denies shortness of breath, leg swelling, and pain in her legs. Source of History: patient Onset: 3 days ago Position: chest Quality: sharp Timing: intermittent Modifying Factors (Worsening): breathing Associated Symptoms: + abdominal pain, + urinary symptoms (hematuria), + weakness, No SOB Note: The patient denies leg swelling and pain in her legs. Review of Systems See HPI for pertinent positives & negatives. A total of 10 systems reviewed and were otherwise negative. Past Medical & Surgical Medical Problems: (1) Appendectomy (2) Chest pain (3) Cholecystectomy (4) Diverticulosis (5) Dyslipidemia (6) Gastroesophageal reflux disease (7) Heart disease (8) Hemorrhoidectomy (9) Hyperlipidemia (10) IBS (11) IVC filter placement (12) Osteoarthritis (13) Pulmonary embolism (14) Pulmonary hypertension (15) Venous insufficiency Surgical Problems: (1) colindres catheter changed (2) pulmonary artery embolectomy Family History Cancer FATHER GRANDFATHER GRANDMOTHER Diabetes mellitus SISTER Heart disease Kidney disease Lung disease Stroke MOTHER Social History Smoking Status: Never Smoker Alcohol Use: none Drug Use: none Marital Status: Housing Status: lives with significant other Occupation Status: retired Current/Historical Medications Scheduled Amlodipine (Norvasc), 2.5 MG PO DAILY Ascorbic Acid (Ascorbic Acid), 1,000 MG PO DAILY Calcium-Magnesium W/ Vitamin D (Citracal Calcium+D Slow R), 1 TAB PO QAM Multivitamin (Multivitamin), 1 TAB PO DAILY Paroxetine (Paxil), 20 MG PO DAILY Ranitidine (Zantac), 150 MG PO BID Riociguat (Adempas), 2 MG PO TID Simvastatin (Zocor), 20 MG PO HS Warfarin Sodium (Warfarin Sodium), 5 MG PO QDD Scheduled PRN Acetaminophen (Tylenol), 1,500 MG PO BID PRN for Pain Fluticasone Propionate (Nasal) (Flonase Allergy Relief), 2 SPRAYS CHRISTINE DAILY PRN for HUMIDITY Allergies Coded Allergies: Nitrates, Organic (Unverified Allergy, Unknown, UNKNOWN, 05/09/18) Physical Exam Vital Signs Date Time Temp Pulse Resp B/P (MAP) Pulse Ox O2 Delivery O2 Flow Rate FiO2 05/09/18 15:37 79 20 120/79 94 Room Air 05/09/18 15:30 78 20 133/81 96 Room Air 05/09/18 14:31 80 20 125/73 94 Room Air 05/09/18 14:02 96 Room Air 05/09/18 13:51 93 05/09/18 13:50 92 16 113/69 97 Room Air 05/09/18 13:41 94 20 128/89 96 Room Air Physical Exam Constitutional: Vital signs reviewed. The patient is clutching her chest and appears distraught. Eyes: Pupils are equal round reactive to light. Conjunctiva are noninjected. ENT: Pharynx is clear without erythema or exudate. Mucous membranes are moist. Neck supple without meningeal signs. Respiratory: Clear to auscultation bilaterally. Breath sounds are equal bilaterally. Cardiovascular: Regular rate and rhythm. No rubs or gallops. GI: Soft, nondistended. Mild diffuse tenderness to her abdomen, seems to be greatest in the lower abdomen. Bowel sounds are present. Musculoskeletal: No peripheral edema. No lower extremity tenderness. Integumentary: No cyanosis. Neurological: The patient is awake and alert. No focal deficits. Psychiatric: Normal affect. Anxious. Medical Decision & Procedures ER Provider Diagnostic Interpretation: Radiology results as stated below per my review and the radiologist's interpretation: CHEST ONE VIEW PORTABLE CLINICAL HISTORY: cp eval for ptx COMPARISON STUDY: Chest CT June 14, 2017. FINDINGS: Median sternotomy wires are noted. Cardiomediastinal silhouette is stable. No pneumothorax or pleural effusion is noted. No consolidation is identified to suggest pneumonia. The appearance of the chest is unchanged. IMPRESSION: No acute cardiopulmonary findings. Electronically signed by: Paolo Kim M.D. 05/09/2018 2:10 PM Dictated Date/Time: 05/09/2018 2:07 PM Laboratory Results 05/09/18 13:52 Red Blood Count 4.39, Mean Corpuscular Volume 91.3, Mean Corpuscular Hemoglobin 31.0, Mean Corpuscular Hemoglobin Concent 33.9, Mean Platelet Volume 10.0, Neutrophils (%) (Auto) 70.2, Lymphocytes (%) (Auto) 21.4, Monocytes (%) (Auto) 7.7, Eosinophils (%) (Auto) 0.5, Basophils (%) (Auto) 0.1, Neutrophils # (Auto) 5.37, Lymphocytes # (Auto) 1.64, Monocytes # (Auto) 0.59, Eosinophils # (Auto) 0.04, Basophils # (Auto) 0.01 05/09/18 13:52 Test 05/09/18 13:52 05/09/18 13:59 White Blood Count 7.66 K/uL (4.8-10.8) Red Blood Count 4.39 M/uL (4.2-5.4) Hemoglobin 13.6 g/dL (12.0-16.0) Hematocrit 40.1 % (37-47) Mean Corpuscular Volume 91.3 fL (80-100) Mean Corpuscular Hemoglobin 31.0 pg (25-34) Mean Corpuscular Hemoglobin Concent 33.9 g/dl (32-36) Platelet Count 266 K/uL (130-400) Mean Platelet Volume 10.0 fL (7.4-10.4) Neutrophils (%) (Auto) 70.2 % Lymphocytes (%) (Auto) 21.4 % Monocytes (%) (Auto) 7.7 % Eosinophils (%) (Auto) 0.5 % Basophils (%) (Auto) 0.1 % Neutrophils # (Auto) 5.37 K/uL (1.4-6.5) Lymphocytes # (Auto) 1.64 K/uL (1.2-3.4) Monocytes # (Auto) 0.59 K/uL (0.11-0.59) Eosinophils # (Auto) 0.04 K/uL (0-0.5) Basophils # (Auto) 0.01 K/uL (0-0.2) RDW Standard Deviation 45.4 fL (36.4-46.3) RDW Coefficient of Variation 13.6 % (11.5-14.5) Immature Granulocyte % (Auto) 0.1 % Immature Granulocyte # (Auto) 0.01 K/uL (0.00-0.02) Prothrombin Time 30.8 SECONDS (9.0-12.0) Prothromb Time International Ratio 3.0 (0.9-1.1) Activated Partial Thromboplast Time 46.8 SECONDS (21.0-31.0) Partial Thromboplastin Ratio 1.8 Anion Gap 9.0 mmol/L (3-11) Estimated GFR () 78.2 Estimated GFR (Non- 67.5 BUN/Creatinine Ratio 12.9 (10-20) Calcium Level 9.2 mg/dl (8.5-10.1) Bedside Troponin I < 0.030 ng/ml (0-0.045) Laboratory results as reviewed by me. Medications Administered Medications (Trade) Dose Ordered Sig/Tiffany Route Start Time Stop Time Status Last Admin Dose Admin Morphine Sulfate (MoRPHine SULFATE INJ) 4 mg NOW STAT IV 05/09/18 13:50 05/09/18 13:52 DC 05/09/18 13:57 4 MG Ondansetron HCl (Zofran Inj) 4 mg NOW STAT IV 05/09/18 13:50 05/09/18 13:53 DC 05/09/18 13:57 4 MG Morphine Sulfate (MoRPHine SULFATE INJ) 2 mg STK-MED ONCE .ROUTE 05/09/18 15:32 05/09/18 15:33 DC 05/09/18 15:37 2 MG ECG Per My Interpretation Indication: chest pain Rate (beats per minute): 90 Rhythm: normal sinus Findings: ST depression (V1-V4), T-wave inversion (V1-V4), other (no ST elevations) Comparison ECG Date: 06/14/2017 Change: no significant change ED Course 1340: The patient was evaluated in room B2. A complete history and physical exam was performed. 1350: Ordered Zofran Inj 4 mg IV, Morphine Sulfate 4 mg IV. 1430: I reevalauted the patient and she states that her chest pain is now gone. She states that she had a cardiac catheterization done 4 times at [facility] , but doesn't know when. When we called [facility], they told us that they have no record of the patient. The patient's CT of her abdomen and pelvis that she had done May 03 shows no acute process. 1437: I spoke with REJI Fairchild of [facility]. We discussed the patient and her results. The patient will be further evaluated by her. Medical Decision This is a 77-year-old female presents with chest pain. Differential diagnosis includes DE, unstable angina, pulmonary embolism, pleurisy, panic attack, GERD. I did perform a limited focused review of portions of the patient's old chart on the electronic medical record. The patient was admitted in 2002 for bilateral pulmonary emboli. I did evaluate the patient as noted above. Patient is presenting with chest pain for about an hour. She states it is sharp and worse when she takes of breath. She denies, however, any shortness of breath. IV access was established. The patient was placed on a continuous quality assurance monitor chassis. I did order and personally review the patient's 12-lead EKG and chest x-ray as described above. She does have ST depressions and T-wave inversions as noted above but these are not new from her previous EKG. I did treat her with IV morphine and Zofran. Her chest pain did resolve completely. I did order and review the patient's blood work as noted in the electronic medical record. Troponin is negative. Her INR is 3. She also has a Stanley filter. Given a therapeutic INR and a Stanley filter I did feel pulmonary embolism was unlikely. I did recommend hospitalization for further evaluation and repeat cardiac enzymes. I did discuss the case with the hospitalist and caser up. She also complained of some diffuse abdominal pain which she has had for a long time. She did have a CT recently which showed no acute process. Medication Reconcilliation Current Medication List: was personally reviewed by me Blood Pressure Screening Patient's blood pressure: Elevated blood pressure Blood pressure disposition: Elevated BP felt to be situational Consults Time Called: 1430 Consulting Physician: REJI Fairchild of [facility] Returned Call: [phone] I spoke with REJI Fairchild of [facility]. We discussed the patient and her results. The patient will be further evaluated by her. Impression Primary Impression: Acute chest pain Additional Impression: Diffuse abdominal pain Scribe Attestation The scribe's documentation has been prepared under my direct and personally reviewed by me in its entirety. I confirm that the note above accurately reflects all work, treatment, procedures, and medical decision making performed by me. Departure Information Dispostion Being Evaluated By Hospitalist Referrals Carin Lebron D.O. (PCP) Patient Instructions My [facility] Problem Qualifiers
[2018-05-09] MEDS ORDERED: FLUTICASONE PROPIONATE NA SPR 16 GM BTL NAE PRN (17:00)
[2018-05-09] MEDS ORDERED: OXYCODONE HCL IR 5 MG TAB (IMMEDIATE RELEASE) PO PRN (17:00)
[2018-05-09] MEDS ORDERED: MoRPHine SULFATE 4 MG/ML 1 ML CARP\\VIAL IV PRN (17:00)
[2018-05-09] MEDS ORDERED: AMLO5TAB3 PO (17:02)
[2018-05-09] MEDS ORDERED: PARO10TA PO (17:02)
[2018-05-09] MEDS ORDERED: ASCO500T16 PO (17:03)
[2018-05-09] MEDS ORDERED: WARFARIN SOD 5 MG TAB PO ONE (17:30)
[2018-05-09] MEDS ORDERED: WARFARIN SOD 2.5 MG TAB PO ONE (17:30)
[2018-05-09 17:32] VITALS: BP 125/67; PULSE 78; TEMP 36.8; O2SAT 98; Ht 175.3 cm; Wt 77.2 kg
[2018-05-09] MEDS ORDERED: NURSING VERBAL MED ORDER ONE (18:30)
[2018-05-09 19:06] VITALS: BP 94/54; PULSE 71; TEMP 36.7; O2SAT 95
[2018-05-09] MEDS: SIMVASTATIN 20 MG TAB PO SCH (20:59)
[2018-05-09] MEDS: ACETAMINOPHEN 325 MG TAB PO PRN (21:00)
[2018-05-10] VITALS (9 sets, daily range): BP systolic 84–117; BP diastolic 44–71; PULSE 64–86; TEMP 36.6–37; O2SAT 90–97
[2018-05-10] MEDS: ACETAMINOPHEN 325 MG TAB PO PRN ×2 (07:27→20:26)
[2018-05-10 07:40] LABS: INR 2.9 (0.9-1.1)
[2018-05-10] MEDS: PAROXETINE 20 MG TAB PO SCH (08:57)
[2018-05-10] MEDS: MULTIVITAMIN TAB PO SCH (08:58)
[2018-05-10] MEDS: AMLODIPINE BESYLATE 5 MG TAB PO SCH (08:58)
[2018-05-10] MEDS: ASCORBIC ACID 500 MG TAB PO SCH (08:58)
--- NOTE | 2018-05-10 09:15 | ECHOCARDIOGRAM REPORT ---
*NOTICE TO RECEIVING [employer] This information is strictly Confidential and protected under [place] law. [place] law prohibits you from making any further disclosure of this information unless further disclosure is expressly permitted by the written consent of the person to whom it pertains or is authorized by law. A general authorization for the release of medical or other information is not sufficient for this purpose. Hospital accepts no responsibility if the information is made available to any other person, INCLUDING THE PATIENT. Interpretation Summary * Name: JULISSA WHITEHEAD Study Date: 05/10/2018 06:35 AM BP: 96/53 mmHg * Patient Location: [id number].2E\[id number]\E203\S\1 HR: 65 * : 1940 (M/d/yyyy) Gender: Female Height: 69 in * Age: 77 yrs Ethnicity: CA Weight: 177 lb * Ordering Physician: Sanket Chatman * Performed By: Kay Maguire RDCS * * Reason For Study: CHEST PAIN * BSA: 2.0 m2 * -- Conclusions -- * The left ventricle is normal in size. * There is mild concentric left ventricular hypertrophy. * The left ventricular wall motion is normal. * Left ventricular systolic function is normal. * Ejection Fraction = 65-70%. * Grade I diastolic dysfunction, (abnormal relaxation pattern). * The right atrium is moderately dilated. * The right ventricle is mildly dilated. * There is trace mitral regurgitation. * There is mild tricuspid regurgitation. * Doppler findings do not suggest pulmonary hypertension. * Normal inferior vena cava diameter and respiratory variation suggests normal central venous pressure. * There is no pericardial effusion. Procedure Details * A complete two-dimensional transthoracic echocardiogram was performed (2D, M-mode, Doppler and color flow Doppler). Left Ventricle * The left ventricle is normal in size. * There is mild concentric left ventricular hypertrophy. * Ejection Fraction = 65-70%. * Left ventricular systolic function is normal. * The left ventricular wall motion is normal. Right Ventricle * The right ventricle is mildly dilated. Atria * The left atrial size is normal. * The right atrium is moderately dilated. * No ASD detected; PFO is not assessed. Mitral Valve * The mitral valve anatomy is normal. * There is no mitral valve stenosis. * There is trace mitral regurgitation. Tricuspid Valve * The tricuspid valve anatomy is normal. * There is no tricuspid stenosis. * There is mild tricuspid regurgitation. * Doppler findings do not suggest pulmonary hypertension. Aortic Valve * The aortic valve is trileaflet. * Aortic valve sclerosis mild, without significant aortic valvular stenosis. * No aortic regurgitation is present. Pulmonic Valve * The pulmonic valve is not well visualized. Great Vessels * The aortic root is normal size. Pericardium/Pleural * There is no pericardial effusion. Great Vessels * Normal inferior vena cava diameter and respiratory variation suggests normal central venous pressure. Left Ventricular Diastolic Function * Grade I diastolic dysfunction, (abnormal relaxation pattern). MMode 2D Measurements and Calculations IVSd 1.1 cm IVSs 1.5 cm LVIDd 3.8 cm LVIDs 2.3 cm LVPWd 1.5 cm LVPWs 2.2 cm IVS/LVPW 0.73 FS 39.6 % EDV(Teich) 61.0 ml ESV(Teich) 17.7 ml EF(Teich) 70.9 % EDV(cubed) 53.8 ml ESV(cubed) 11.9 ml EF(cubed) 78.0 % % IVS thick 33.8 % % LVPW thick 45.8 % LV mass(C)d 171.3 grams LV mass(C)dI 87.3 grams/m\S\2 LV mass(C)s 164.9 grams LV mass(C)sI 84.1 grams/m\S\2 SV(Teich) 43.3 ml SI(Teich) 22.1 ml/m\S\2 SV(cubed) 42.0 ml SI(cubed) 21.4 ml/m\S\2 ACS 1.0 cm LA dimension 3.8 cm asc Aorta Diam 2.8 cm LVOT diam 2.0 cm LVOT area 3.1 cm\S\2 LVAd ap4 23.6 cm\S\2 LVLd ap4 7.1 cm EDV(MOD-sp4) 68.2 ml EDV(sp4-el) 67.0 ml LVAs ap4 11.3 cm\S\2 LVLs ap4 5.7 cm ESV(MOD-sp4) 19.2 ml ESV(sp4-el) 19.1 ml EF(MOD-sp4) 71.8 % EF(sp4-el) 71.6 % LVAd ap2 22.3 cm\S\2 LVLd ap2 6.4 cm EDV(MOD-sp2) 65.6 ml EDV(sp2-el) 66.4 ml LVAs ap2 10.4 cm\S\2 LVLs ap2 5.1 cm ESV(MOD-sp2) 18.3 ml ESV(sp2-el) 18.3 ml EF(MOD-sp2) 72.2 % EF(sp2-el) 72.4 % LVLd %diff -10.71 % EDV(MOD-bp) 69.7 ml LVLs %diff -12.63 % ESV(MOD-bp) 19.5 ml EF(MOD-bp) 72.0 % SV(MOD-sp4) 48.9 ml SI(MOD-sp4) 25.0 ml/m\S\2 SV(MOD-sp2) 47.4 ml SI(MOD-sp2) 24.2 ml/m\S\2 SV(MOD-bp) 50.2 ml SI(MOD-bp) 25.6 ml/m\S\2 SV(sp4-el) 48.0 ml SI(sp4-el) 24.5 ml/m\S\2 SV(sp2-el) 48.1 ml SI(sp2-el) 24.5 ml/m\S\2 Doppler Measurements and Calculations MV E max matilda 64.2 cm/sec MV A max matilda 84.1 cm/sec MV E/A 0.76 MV dec time 0.23 sec Ao V2 max 131.1 cm/sec Ao max PG 6.9 mmHg Ao max PG (full) 1.6 mmHg MARJORIE(V,A) 2.8 cm\S\2 MARJORIE(V,D) 2.8 cm\S\2 LV V1 max PG 5.3 mmHg LV V1 max 115.4 cm/sec PA V2 max 46.9 cm/sec PA max PG 0.88 mmHg TR max matilda 267.9 cm/sec
[2018-05-10] MEDS ORDERED: TRAMADOL HCL 50 MG TAB PO PRN (11:00)
[2018-05-10] MEDS: SIMVASTATIN 20 MG TAB PO SCH (20:27)
--- NOTE | 2018-05-10 20:58 | Progress Note ---
Medicine Progress Note Date & Time of Visit: May 10, 2018 at 10:40 . Subjective CC: Follow-up visit for chest pain. HPI: Chest pain improved. She noted some pain under left breast this morning during echo. No SOB. No N/V. ROS: General- no fever, no chills Resp- no cough; no shortness of breath Cardiac- as noted above in HPI GI- no nausea, no vomiting, no diarrhea, no constipation - no dysuria, no difficulty voiding . Objective Last 8 Hrs Date Time Temp Pulse Resp B/P (MAP) Pulse Ox O2 Delivery O2 Flow Rate FiO2 05/10/18 16:00 Room Air 05/10/18 15:21 36.8 83 16 97/61 (73) 93 Room Air Physical Exam: General- no distress Lungs- clear to auscultation; no respiratory distress Cardiovascular- RRR; no murmur; no gallop; no JVD; no pretibial edema Thorax- tenderness inferior to left breast; no sternal or parasternal tenderness Abdomen- + bowel sounds, soft, nontender Extremities- no cyanosis; no calf tenderness Neuro- alert, oriented Skin- warm & dry . Laboratory Results: Last 24 Hours Test 05/10/18 03:36 05/10/18 07:07 Urine Color YELLOW Urine Appearance CLEAR Urine pH 5.0 Urine Specific [place] > 1.045 Urine Protein NEG Urine Glucose (UA) NEG Urine Ketones TRACE Urine Occult Blood NEG Urine Nitrite NEG Urine Bilirubin NEG Urine Urobilinogen NEG Urine Leukocyte Esterase NEG Prothrombin Time 29.4 SECONDS Prothromb Time International Ratio 2.9 Other Studies: EKG performed at 07:03 reviewed and demonstrated NSR at 65 / minute, intraventricular conduction delay, inverted T-waves V1-2, slight ST depression V3-5, no significant change compared to 05/09/18. . Assessment & Plan CHEST PAIN Serum troponins normal x 2. EKG similar to previous tracings. No apparent pulmonary embolism per CTA. No apparent aortic dissection per CTA. Echocardiogram did not show any wall motion abnormalities or pericardial effusion. Suspect that chest pain musculoskeletal in nature. Increase activity. Analgesics PRN. PULMONARY HYPERTENSION Echo with Doppler showed enlarged RA and RV, but no elevation of PA pressures. Continue riociguat. Avoid nitrates. HEMATURIA 1 episode of gross hematuria a few weeks prior to admission. Outpatient CT did not show any pathology. CT today did not show any apparent renal masses or other urinary tract pathology. Will need further evaluation if hematuria recurs. VTE PROPHYLAXIS / HISTORY PULMONARY EMBOLISM Continue warfarin. RESUSCITATION STATUS Level 5 (DNR) as noted in admission H&P. DISPOSITION Expected discharge to home. Family Medicine follow-up with Dr. Lebron. . Current Inpatient Medications: Current Inpatient Medications Medications (Trade) Dose Ordered Sig/Tiffany Route Start Time Stop Time Status Last Admin Dose Admin Acetaminophen (Tylenol Tab) 650 mg Q4H PRN PO 05/09/18 15:00 06/08/18 14:59 05/10/18 20:26 650 MG Miscellaneous (Iv Fluids Completed) 1 ea PRN PRN N/A 05/09/18 15:15 05/09/19 15:14 Ioversol (Optiray 320) 100 ml UD PRN IV 05/09/18 16:15 05/13/18 16:14 Oxycodone HCl (Roxicodone Immediate Rel Tab) 5 mg Q4H PRN PO 05/09/18 17:00 05/23/18 16:59 Amlodipine Besylate (Norvasc Tab) 2.5 mg DAILY PO 05/10/18 09:00 06/09/18 08:59 05/10/18 08:58 2.5 MG Ascorbic Acid (Vitamin C Tab) 1,000 mg DAILY PO 05/10/18 09:00 06/09/18 08:59 05/10/18 08:58 1,000 MG Fluticasone Propionate (Flonase Nasal [place]) 2 sprays DAILY PRN CHRISTINE 05/09/18 17:00 06/08/18 16:59 Multivitamins (Multivitamin Tab) 1 tab DAILY PO 05/10/18 09:00 06/09/18 08:59 05/10/18 08:58 1 TAB Paroxetine HCl (pAXil TAB) 20 mg DAILY PO 05/10/18 09:00 06/09/18 08:59 05/10/18 08:57 20 MG Simvastatin (Zocor Tab) 20 mg HS PO 05/09/18 21:00 06/08/18 20:59 05/10/18 20:27 20 MG Warfarin Sodium (Coumadin Tab) 2.5 mg MoFr@1600 PO 05/12/18 16:00 06/11/18 15:59 Miscellaneous Information (Order Awaiting Action) 1 ea QS N/A 05/10/18 00:00 06/09/18 00:00 Tramadol HCl (Ultram Tab) 50 mg Q6H PRN PO 05/10/18 11:00 06/09/18 10:59
[2018-05-11] MEDS: ACETAMINOPHEN 325 MG TAB PO PRN (05:51)
[2018-05-11 07:07] VITALS: BP 95/57; PULSE 66; TEMP 36.7; O2SAT 96
[2018-05-11 07:30] VITALS: O2SAT 96
[2018-05-11] MEDS: AMLODIPINE BESYLATE 5 MG TAB PO SCH (07:30)
[2018-05-11] MEDS: MULTIVITAMIN TAB PO SCH (07:31)
[2018-05-11] MEDS: ASCORBIC ACID 500 MG TAB PO SCH (07:32)
[2018-05-11] MEDS: PAROXETINE 20 MG TAB PO SCH (07:33)
[2018-05-11 13:24] VITALS: BP 95/57; PULSE 66; TEMP 36.7; O2SAT 96
--- NOTE | 2018-05-11 13:56 | Progress Note ---
Medicine Progress Note Date & Time of Visit: May 11, 2018 at 13:55 . Subjective Doing well. Minimal left anterior chest wall pain, relieved by acetaminophen. Ambulating without chest pain or SOB. . Objective Last 8 Hrs Date Time Temp Pulse Resp B/P (MAP) Pulse Ox O2 Delivery O2 Flow Rate FiO2 05/11/18 13:24 36.7 66 18 96 Nasal Cannula 05/11/18 07:30 96 Room Air 05/11/18 07:07 36.7 66 18 95/57 (70) 96 Room Air Physical Exam: General- no distress Lungs- clear to auscultation; no respiratory distress Cardiovascular- RRR; no murmur; no gallop; no JVD; no pretibial edema Abdomen- + bowel sounds, soft, nontender Extremities- no cyanosis; no calf tenderness Neuro- alert, oriented Skin- warm & dry . Assessment & Plan CHEST PAIN Serum troponins normal x 2. EKG similar to previous tracings. No apparent pulmonary embolism per CTA. No apparent aortic dissection per CTA. Echocardiogram did not show any wall motion abnormalities or pericardial effusion. Ambulating without anginal symptoms. Suspect that chest pain musculoskeletal in nature. PULMONARY HYPERTENSION Echo with Doppler showed enlarged RA and RV, but no elevation of PA pressures. Continue riociguat. Avoid nitrates. F/U at [facility]. Given copy of echo report to share. PULMONARY NODULE 6 mm nodule RUL noted on CTA chest, unchanged since 06/14/17. Discussed with patient. Follow-up CT in 6-12 months recommended. HEMATURIA 1 episode of gross hematuria a few weeks prior to admission. Outpatient CT did not show any pathology. CT today did not show any apparent renal masses or other urinary tract pathology. Will need further evaluation if hematuria recurs. VTE PROPHYLAXIS / HISTORY PULMONARY EMBOLISM Continue warfarin. RESUSCITATION STATUS Level 5 (DNR) as noted in admission H&P. DISPOSITION Discharge to home. Family Medicine follow-up with Dr. Lebron. . Current Inpatient Medications: Current Inpatient Medications Medications (Trade) Dose Ordered Sig/Tiffany Route Start Time Stop Time Status Last Admin Dose Admin Acetaminophen (Tylenol Tab) 650 mg Q4H PRN PO 05/09/18 15:00 06/08/18 14:59 05/11/18 05:51 650 MG Miscellaneous (Iv Fluids Completed) 1 ea PRN PRN N/A 05/09/18 15:15 05/09/19 15:14 Ioversol (Optiray 320) 100 ml UD PRN IV 05/09/18 16:15 05/13/18 16:14 Oxycodone HCl (Roxicodone Immediate Rel Tab) 5 mg Q4H PRN PO 05/09/18 17:00 05/23/18 16:59 Amlodipine Besylate (Norvasc Tab) 2.5 mg DAILY PO 05/10/18 09:00 06/09/18 08:59 05/10/18 08:58 2.5 MG Ascorbic Acid (Vitamin C Tab) 1,000 mg DAILY PO 05/10/18 09:00 06/09/18 08:59 05/11/18 07:32 1,000 MG Fluticasone Propionate (Flonase Nasal [place]) 2 sprays DAILY PRN CHRISTINE 05/09/18 17:00 06/08/18 16:59 Multivitamins (Multivitamin Tab) 1 tab DAILY PO 05/10/18 09:00 06/09/18 08:59 05/11/18 07:31 1 TAB Paroxetine HCl (pAXil TAB) 20 mg DAILY PO 05/10/18 09:00 06/09/18 08:59 05/11/18 07:33 20 MG Simvastatin (Zocor Tab) 20 mg HS PO 05/09/18 21:00 06/08/18 20:59 05/10/18 20:27 20 MG Warfarin Sodium (Coumadin Tab) 2.5 mg MoFr@1600 PO 05/12/18 16:00 06/11/18 15:59 Miscellaneous Information (Order Awaiting Action) 1 ea QS N/A 05/10/18 00:00 06/09/18 00:00 Tramadol HCl (Ultram Tab) 50 mg Q6H PRN PO 05/10/18 11:00 06/09/18 10:59
--- NOTE | 2018-05-11 14:02 | Discharge Instructions ---
Discharge Instructions Date of Service May 11, 2018 . Admission Reason for Admission: chest pain . Discharge Discharge Diagnosis / Problem: chest pain- no sign of heart attack, blood clots , or aortic dissection Discharge Goals Goal(s): Decrease discomfort Activity Recommendations Activity Limitations: resume your previous activity . Instructions / Follow-Up Instructions / Follow-Up APPOINTMENTS: FAMILY MEDICINE 05/19/2018 1:00 PM Carin Lebron, DO OTHER INSTRUCTIONS: There was no sign of any serious problems like heart attack, blood clots, aortic dissection. Chest pain may have been from a pulled muscle from cleaning your house. Take acetaminophen (Extra Strength Tylenol) 2 pills 3 times a day as needed for pain. Avoid heavy lifting or other strenuous activity until better. Seek medical attention if you have: * temperature above 101 * chest pain or trouble breathing * abdominal pain, nausea, vomiting * diarrhea, dark stools or bloody stools * any unanswered questions or concerns Call 911 if symptoms are severe. Call if you have any questions or problems. My cell # is [phone]. You can also reach a [facility] hospitalist on duty at [facility] 24 hours a day by calling [phone]. Please take good care of yourself. Sanket Chatman . Current Hospital Diet Patient's current hospital diet: AHA Diet (Heart Healthy) Discharge Diet Recommended Diet: AHA Diet (Heart Healthy) Procedures Procedures Performed: CT chest- no signs of blood clot or aortic dissection. There was a small spot in your right lung measuring about 1/4 inch that was there before. Repeat CT scan in 6-12 months recommended. Echocariogram- no signs of heart attack or fluid around heart. Pending Studies Studies pending at discharge: no Medical Emergencies . Who to Call and When: Medical Emergencies: If at any time you feel your situation is an emergency, please call 911 immediately. . Non-Emergent Contact Non-Emergency issues call your: Primary Care Provider, Hospital Doctor . . "Provider Documentation" section prepared by Sanket Chatman. .
--- NOTE | 2018-05-11 19:49 | Discharge Summary ---
Discharge Summary Date of Service May 11, 2018. Discharge Summary Admission Date: May 09, 2018 at 15:59 Discharge Date: May 11, 2018 Discharge Disposition: Home Principal Diagnosis: chest pain- probably musculoskeletal . Secondary Diagnoses/Problems: Chronic and Resolved Medical Problems: (1) Diverticular disease of colon Status: Chronic (2) Dyslipidemia Status: Chronic (3) Gastroesophageal reflux disease Status: Chronic (4) History of colonic diverticulitis Status: Chronic (5) History of pulmonary embolism Status: Chronic (6) IVC filter placement Status: Chronic (7) Osteoarthritis Status: Chronic (8) Pulmonary hypertension Status: Chronic (9) Scaphoid fracture Status: Resolved (10) Venous insufficiency Status: Chronic Surgical Problems: (1) History of embolectomy Permanent Comment: for pulmonary embolism Status: Chronic (2) History of vascular access device Permanent Comment: Krueger cath, removed Status: Chronic (3) Status post appendectomy Status: Chronic (4) Status post cholecystectomy Status: Chronic (5) Status post insertion of inferior vena caval filter Status: Chronic . Procedures: cardiac monitoring CTA chest and abdomen echocardiogram . Pending Studies/Follow-Up: Please arrange for f/u CT chest without contrast in 6-12 months re: RUL pulmonary nodule. . Medication Reconciliation Continued Medications: Acetaminophen (Tylenol) 500 Mg Tab 1000 MG PO TID PRN for Pain, TAB Amlodipine (Norvasc) 5 Mg Tab 2.5 MG PO DAILY, TAB Ascorbic Acid (Ascorbic Acid) 500 Mg Tab 1000 MG PO DAILY Calcium-Magnesium W/ Vitamin D (Citracal Calcium+D Slow R) 1 Tab Tab 1 TAB PO QAM Fluticasone Propionate (Nasal) (Flonase Allergy Relief) 50 Mcg/Act Spr 2 SPRAYS CHRISTINE DAILY PRN for Allergic Reaction Multivitamin (Multivitamin) Tab 1 TAB PO DAILY, TAB Paroxetine Hcl (Paxil) 10 Mg Tab 20 MG PO DAILY Riociguat (Adempas) 2 Mg Tab 2 MG PO TID Simvastatin (Zocor) 20 Mg Tab 20 MG PO HS, 0 Refills Warfarin Sodium (Warfarin Sodium) 5 Mg Tab 0 PO UD Dose 04/28/: 2.5 mg MoFr, 5 mg [id number] Admission Information HPI (per Admitting provider): 77-year-old female followed by Dr. Lebron. History of pulmonary embolism, status post surgical thrombectomy with subsequent pulmonary hypertension. Has been on chronic warfarin therapy. Status post Gaurav filter placement. 2 days ago she experienced chest pain or resting in bed. Chest pain described as sharp anterior chest pain associated with some shortness of breath and sweats. Pain seemed to radiate to her right arm. She took some Tylenol and the pain resolved after about 15 minutes. Last night she had similar symptoms, again relieved by Tylenol. Today she experienced more severe anterior chest pain, worse with deep inspiration. She felt somewhat short of breath. Noted some nausea, no emesis. Today when she took Tylenol, there was no relief of the pain. She called clinic was referred to the ED for further evaluation. Persistent chest pain upon arrival to the ED. Did not take nitrates due to therapy with riociguat. Received IV morphine with relief of her pain. . Physical Exam (per Admitting): CONSTITUTIONAL vital signs as noted above well-developed, well-nourished, no acute distress EYES conjunctivae clear; lids normal pupils equal and reactive to light EARS, NOSE, MOUTH AND THROAT external inspection of ears and nose unremarkable hearing grossly intact to spoken voice oropharynx clear NECK no masses; trachea midline thyroid normal RESPIRATORY normal respiratory effort; no respiratory distress clear to percussion clear to auscultation CARDIOVASCULAR regular rate and rhythm no murmur, gallop, rub appreciated carotid arteries 2/2 radial and pedal pulses intact and symmetric no pretibial edema GASTROINTESTINAL moderate mid abdominal tenderness normal bowel sounds, soft no palpable masses no hepatomegaly; no splenomegaly LYMPHATIC no cervical adenopathy MUSCULOSKELETAL no cyanosis; no digital clubbing no calf tenderness motor strength extremities grossly intact SKIN no rash warm and dry NEUROLOGIC PERRL, EOMI, no facial palsy, no dysarthria, tongue midline patellar DTR's 2/2 PSYCHIATRIC oriented to person, place, time mood and affect appropriate . Hospital Course CHEST PAIN Presented to ED with chest pain as described in HPI. Serum troponins normal x 2. EKG showed NSR and was similar to previous tracings. No apparent pulmonary embolism per CTA. No apparent aortic dissection per CTA. Echocardiogram did not show any wall motion abnormalities or pericardial effusion. Suspect that chest pain musculoskeletal in nature. Pain essentially resolved by discharge. Ambulating without anginal symptoms. No need for further evaluation at this time. PULMONARY HYPERTENSION Echo with Doppler showed enlarged RA and RV, but no elevation of PA pressures. Continue riociguat. Avoid nitrates. F/U at [facility]. Given copy of echo report to share. PULMONARY NODULE 6 mm nodule RUL noted on CTA chest, unchanged since 06/14/17. Discussed with patient. Follow-up CT in 6-12 months recommended. HEMATURIA 1 episode of gross hematuria a few weeks prior to admission. Outpatient CT did not show any pathology. CT today did not show any apparent renal masses or other urinary tract pathology. Will need further evaluation if hematuria recurs. VTE PROPHYLAXIS / HISTORY PULMONARY EMBOLISM Continue warfarin. RESUSCITATION STATUS Level 5 (DNR) as noted in admission H&P. DISPOSITION Discharge to home. Family Medicine follow-up with Dr. Lebron. . Discharge Instructions Date of Service May 11, 2018 . Admission Reason for Admission: chest pain . Discharge Discharge Diagnosis / Problem: chest pain- no sign of heart attack, blood clots , or aortic dissection Discharge Goals Goal(s): Decrease discomfort Activity Recommendations Activity Limitations: resume your previous activity . Instructions / Follow-Up Instructions / Follow-Up APPOINTMENTS: FAMILY MEDICINE 05/19/2018 1:00 PM Carin Lebron, DO OTHER INSTRUCTIONS: There was no sign of any serious problems like heart attack, blood clots, aortic dissection. Chest pain may have been from a pulled muscle from cleaning your house. Take acetaminophen (Extra Strength Tylenol) 2 pills 3 times a day as needed for pain. Avoid heavy lifting or other strenuous activity until better. Seek medical attention if you have: * temperature above 101 * chest pain or trouble breathing * abdominal pain, nausea, vomiting * diarrhea, dark stools or bloody stools * any unanswered questions or concerns Call 911 if symptoms are severe. Call if you have any questions or problems. My cell # is [phone]. You can also reach a [facility] hospitalist on duty at [facility] 24 hours a day by calling [phone]. Please take good care of yourself. Sanket Chatman . Current Hospital Diet Patient's current hospital diet: AHA Diet (Heart Healthy) Discharge Diet Recommended Diet: AHA Diet (Heart Healthy) Procedures Procedures Performed: CT chest- no signs of blood clot or aortic dissection. There was a small spot in your right lung measuring about 1/4 inch that was there before. Repeat CT scan in 6-12 months recommended. Echocariogram- no signs of heart attack or fluid around heart. Pending Studies Studies pending at discharge: no Medical Emergencies . Who to Call and When: Medical Emergencies: If at any time you feel your situation is an emergency, please call 911 immediately. . Non-Emergent Contact Non-Emergency issues call your: Primary Care Provider, Hospital Doctor . . "Provider Documentation" section prepared by Sanket Chatman. . Additional Copies To Carin Lebron D.O.
[2018-05-12] MEDS ORDERED: WARFARIN SOD 2.5 MG TAB PO SCH (16:00)
== END 2018-05-11 14:30 | disposition home or self-care (01) ==
LOC: C.EDB 13:36 → ENRESERV 15:20 → C.2E 15:59 → ENRESERV 05-10 11:03 → C.MS2W 05-10 12:33
PROVIDERS: ADMIT Hospitalist; ATTEND Hospitalist
DX: R07.9 Chest pain, unspecified (principal); E78.5 Hyperlipidemia, unspecified; K21.9 Gastro-esophageal reflux disease without esophagitis; Z86.711 Personal history of pulmonary embolism; I27.20 Pulmonary hypertension, unspecified; Z79.899 Other long term (current) drug therapy; Z79.01 Long term (current) use of anticoagulants; Z79.02 Long term (current) use of antithrombotics/antiplatelets; Z88.8 Allergy status to other drugs, medicaments and biological substances

== ENCOUNTER 2021-05-09 12:31 | Inpatient (IN) ==
--- NOTE | 2021-05-09 15:27 | Emergency Department Note ---
History of Present Illness General Chief complaint: Knee Injury/Pain Stated complaint: R KNEE SWOLLEN, DIFFICULTY AMBULATING Time Seen by Provider: 05/09/21 15:12 History of Present Illness Maximum Pain Intensity: 8 This is a 80-year-old female with a past medical history significant for PE currently on warfarin anticoagulation that presents to the emergency department with complaints of "right knee swollen, difficulty ambulating". The patient notes that after receiving the COVID-19 vaccination over the past 1 to 2 months she has been experiencing difficulty with ambulation noting increased weakness in the arms and legs bilaterally. She notes that in addition she is experiencing right knee pain which began recently after injuring it while in the bathroom. She notes no swelling to the right knee as well. She notes a history of clots and is concerned about possible DVT. She has been compliant with your warfarin. Current pain 03/13. Patient at this time denies any fevers, chills, chest pain, shortness of breath. She does note some numbness in the hands and legs bilaterally. No speech troubles. Home Medications Medication Instructions Recorded Confirmed Type Adempas 2 mg PO TID 07/30/19 05/09/21 History calcium carb and citrate-vitD3 1 tab PO QAM 07/30/19 05/09/21 History [Citracal-D3 Slow Release] fluticasone propionate 2 spray INTRANASAL QAM 07/30/19 05/09/21 History multivitamin 1 tab PO QAM 07/30/19 05/09/21 History paroxetine HCl 30 mg PO DAILY 07/30/19 05/09/21 History simvastatin 20 mg PO HS 07/30/19 05/09/21 History warfarin 2.5 mg PO MOFR 07/30/19 05/09/21 History warfarin 5 mg PO SUTUWETHSA 07/30/19 05/09/21 History acetaminophen [Tylenol Extra 1,000 mg PO Q6H PRN 10/19/19 05/09/21 History Strength] ascorbic acid (vitamin C) [Vitamin 500 mg PO BID 05/09/21 05/09/21 History C] methylcellulose (with sugar) 1 tbsp PO DAILY 05/09/21 05/09/21 History [Citrucel (sucrose)] sodium chloride [Ross Nasal Mist] 2 spray INTRANASAL QID PRN 05/09/21 05/09/21 History Allergies Allergy/AdvReac Type Severity Reaction Status Date / Time nitroglycerin Allergy Unknown Unknown Verified 05/09/21 19:44 Past Med/Surg History Medical History (Updated 05/10/21 @ 00:25 by Jasen Orellana PA-C) Anxiety Diverticular disease of colon Dyslipidemia History of anesthesia reaction was instructed after embolectomy to never have "heavy anesthesia because I may not wake up or I would end up on a ventilator" History of colonic diverticulitis History of pulmonary embolism per pt d/t not being active? Pulmonary nodule "RUL 6 mm, CT 06/14/17 and 05/09/18." Surgical History History of bilateral cataract extraction History of cardiac cath x3--last 2014--no stents---follows with Dr. Abbott History of colonoscopy History of embolectomy 2003 "for pulmonary embolism" @ [place] History of esophagogastroduodenoscopy (EGD) History of hemorrhoidectomy History of tonsillectomy History of tooth extraction History of vascular access device "Krueger cath, removed"--per pt was in for 11 years Status post appendectomy Status post cholecystectomy Status post insertion of inferior vena caval filter марина filter Family History Father Family hx of colon cancer Other Family history non-contributory No family history of adverse response to anesthesia Social History Smoking Status: Never smoker Second Hand Exposure: Yes; Hx Alcohol Use: No Hx Substance Use: No Preferred Language: Turkish Communication Ability: Effective Special Education Superintendent Required: No Beliefs That Will Affect Care: None Current Living Situation: Alone Feels Safe at Home: Yes Safety Concerns: Feels Safe At This Time Assistive Devices: Glasses and Walker Review of Systems A total of 10 systems reviewed and were otherwise negative Physical Exam Vital Signs Vital Signs - 24 hr 05/09/21 12:59 05/09/21 15:40 05/09/21 15:43 Temperature 36.6 C Temperature Source Temporal Artery Scan Pulse Rate 98 H 86 88 Pulse Rate from SpO2 Sensor 86 88 Respiratory Rate 18 17 19 Respiratory Effort / Characteristics Non-Labored Spontaneous Respiratory Depth Normal Respiratory Pattern Regular Blood Pressure 94/59 L 149/101 H Blood Pressure Mean 70 117 Blood Pressure Position Sitting Pulse Oximetry 98 98 97 Oxygen Delivery Method Room Air Sepsis Recent Fever Within 48 Hours No Sepsis New/Unexplained Change in Mental Status N/A Sepsis Action Taken by Nursing No Action Required 05/09/21 15:45 05/09/21 15:50 05/09/21 16:00 Temperature Temperature Source Pulse Rate 80 75 81 Pulse Rate from SpO2 Sensor 81 76 82 Respiratory Rate 17 18 17 Respiratory Effort / Characteristics Respiratory Depth Respiratory Pattern Blood Pressure 148/86 H 147/78 H Blood Pressure Mean 106 101 Blood Pressure Position Pulse Oximetry 98 97 98 Oxygen Delivery Method Sepsis Recent Fever Within 48 Hours Sepsis New/Unexplained Change in Mental Status Sepsis Action Taken by Nursing 05/09/21 16:10 05/09/21 16:15 05/09/21 16:20 Temperature Temperature Source Pulse Rate 86 77 82 Pulse Rate from SpO2 Sensor 86 78 79 Respiratory Rate 17 20 16 Respiratory Effort / Characteristics Respiratory Depth Respiratory Pattern Blood Pressure 134/85 Blood Pressure Mean 101 Blood Pressure Position Pulse Oximetry 94 94 95 Oxygen Delivery Method Sepsis Recent Fever Within 48 Hours Sepsis New/Unexplained Change in Mental Status Sepsis Action Taken by Nursing 05/09/21 17:40 05/09/21 17:41 05/09/21 17:45 Temperature Temperature Source Pulse Rate 78 79 80 Pulse Rate from SpO2 Sensor 80 83 82 Respiratory Rate 19 14 19 Respiratory Effort / Characteristics Respiratory Depth Respiratory Pattern Blood Pressure 122/78 125/81 Blood Pressure Mean 92 95 Blood Pressure Position Pulse Oximetry 97 98 93 Oxygen Delivery Method Sepsis Recent Fever Within 48 Hours Sepsis New/Unexplained Change in Mental Status Sepsis Action Taken by Nursing 05/09/21 18:00 05/09/21 18:15 05/09/21 18:30 Temperature Temperature Source Pulse Rate 86 81 81 Pulse Rate from SpO2 Sensor 84 78 80 Respiratory Rate 22 15 17 Respiratory Effort / Characteristics Respiratory Depth Respiratory Pattern Blood Pressure 130/81 128/67 Blood Pressure Mean 97 87 Blood Pressure Position Pulse Oximetry 100 98 96 Oxygen Delivery Method Sepsis Recent Fever Within 48 Hours Sepsis New/Unexplained Change in Mental Status Sepsis Action Taken by Nursing 05/09/21 18:31 05/09/21 18:45 05/09/21 19:00 Temperature Temperature Source Pulse Rate 78 78 75 Pulse Rate from SpO2 Sensor 81 78 76 Respiratory Rate 15 18 15 Respiratory Effort / Characteristics Respiratory Depth Respiratory Pattern Blood Pressure 145/76 H 133/75 130/73 Blood Pressure Mean 99 94 92 Blood Pressure Position Pulse Oximetry 98 98 93 Oxygen Delivery Method Sepsis Recent Fever Within 48 Hours Sepsis New/Unexplained Change in Mental Status Sepsis Action Taken by Nursing 05/09/21 19:15 05/09/21 19:30 05/09/21 19:31 Temperature Temperature Source Pulse Rate 104 H 99 H 108 H Pulse Rate from SpO2 Sensor 105 H 97 H Respiratory Rate 19 24 20 Respiratory Effort / Characteristics Respiratory Depth Respiratory Pattern Blood Pressure 128/78 115/68 Blood Pressure Mean 94 83 Blood Pressure Position Pulse Oximetry 96 98 Oxygen Delivery Method Sepsis Recent Fever Within 48 Hours Sepsis New/Unexplained Change in Mental Status Sepsis Action Taken by Nursing 05/09/21 19:45 05/09/21 20:00 Temperature Temperature Source Pulse Rate 92 H 93 H Pulse Rate from SpO2 Sensor 92 H 92 H Respiratory Rate 19 19 Respiratory Effort / Characteristics Respiratory Depth Respiratory Pattern Blood Pressure 113/72 131/85 Blood Pressure Mean 85 100 Blood Pressure Position Pulse Oximetry 97 95 Oxygen Delivery Method Sepsis Recent Fever Within 48 Hours Sepsis New/Unexplained Change in Mental Status Sepsis Action Taken by Nursing VITAL SIGNS - Vital signs and nursing notes were reviewed. Stable and afebrile. GENERAL -80-year-old female appearing her stated age who is in no acute distress. Communicates well with provider and answers questions appropriately. SKIN - Without rashes. No meningeal or petechial rash. The skin overlying the right knee reveals no erythema. Edema noted circumferentially. HEAD - NC/AT. EYES - PERRL with EOMI bilaterally. Sclera anicteric. EARS - No deformities of external structures noted on gross examination bilaterally. NOSE - Midline and without cyanosis. No epistaxis or purulent drainage noted. MOUTH/OROPHARYNX - Without perioral cyanosis. NECK - Neck with FROM. LUNGS - Chest wall symmetric without accessory muscle use, intercostals retractions, or central cyanosis. Normal vesicular breath sounds CTA B/L. No wheezes, rales, or rhonchi appreciated. CARDIAC - RRR with S1/S2. No murmur, rubs, or gallops appreciated. EXTREMITIES - No clubbing or peripheral cyanosis. +5/5 strength noted in UE/LE bilaterally. NEUROLOGIC - Cranial nerves II through XII grossly intact. PSYCH - A&Ox3 and cooperates fully with examiner. Pt is very pleasant and interacts well with examiner. Course Administered Medications Simvastatin (Simvastatin 20 Mg Tab) 20 mg PO HS MIGUE Stop: 06/08/21 21:54 Last Admin: 05/09/21 22:51 Dose: 20 mg Documented by: [id number] Discontinued Medications Hydrocodone Bitart/Acetaminophen (Hydrocodone/Acetamophen 5/325mg Tab) 1 tab PO NOW STA Stop: 05/09/21 18:04 Last Admin: 05/09/21 18:10 Dose: 1 tab Documented by: [id number] Lidocaine/Epinephrine (Lido/Epinephrine/Sod Bicarb 20 Ml Vial) 20 ml INFIL NOW ONE Stop: 05/09/21 18:19 Last Admin: 05/09/21 18:32 Dose: Not Given Documented by: [id number] Adempas - Patient's (Own Med) 1 ea PO 5 MIGUE Stop: 05/09/21 22:46 Last Admin: 05/09/21 22:51 Dose: 2 mg Documented by: [id number] Medical Decision Making Laboratory Data Result diagrams: 05/09/21 15:50 05/09/21 15:50 Lab Results 05/09/21 05/09/21 05/09/21 Range/Units 15:00 15:50 15:50 WBC 7.77 (4.8-10.8) K/uL RBC 4.30 (4.2-5.4) M/uL Hgb 13.6 (12.0-16.0) g/dL Hct 40.9 (37-47) % MCV 95.1 (80-100) fL MCH 31.6 (25-34) pg MCHC 33.3 (32-36) g/dL RDW Std Deviation 47.4 H (36.4-46.3) fL RDW Coeff of Susan 13.7 (11.5-14.5) % Plt Count 337 (130-400) K/uL MPV 10.2 (7.4-10.4) fL Immature Gran % (Auto) 0.3 % Neut % (Auto) 60.5 % Lymph % (Auto) 30.9 % Storey % (Auto) 7.3 % Eos % (Auto) 0.9 % Baso % (Auto) 0.1 % Neut # (Auto) 4.70 (1.4-6.5) K/uL Lymph # (Auto) 2.40 (1.2-3.4) K/uL Storey # (Auto) 0.57 (0.11-0.59) K/uL Eos # (Auto) 0.07 (0-0.5) K/uL Baso # (Auto) 0.01 (0-0.2) K/uL Immature Gran # (Auto) 0.02 (0.00-0.02) K/uL PT 24.8 H (9.0-12.0) Seconds INR 2.6 H (0.9-1.1) APTT 47.9 H* (21.0-31.0) Seconds PTT Ratio 1.8 Sodium (136-145) mmol/L Potassium (3.5-5.1) mmol/L Chloride (98-107) mmol/L Carbon Dioxide (21-32) mmol/L Anion Gap (3-11) BUN (7-18) mg/dl Creatinine (0.6-1.2) mg/dl Est Cr Clr Drug Dosing ml/min Est GFR ( Amer) ml/min Est GFR (Non-Af Amer) ml/min BUN/Creatinine Ratio (10-20) Glucose (70-99) mg/dl Calcium (8.5-10.1) mg/dl Magnesium (1.8-2.4) mg/dl Total Bilirubin (0.2-1) mg/dl AST (15-37) U/L ALT (12-78) U/L Alkaline Phosphatase (45-117) U/L Troponin I (0-0.045) ng/ml Total Protein (6.4-8.2) gm/dl Albumin (3.4-5.0) gm/dl Globulin (2.5-4.0) gm/dl Albumin/Globulin Ratio (0.9-2) Urine Color Yellow Urine Appearance Clear (Clear) Urine pH >= 9.0 H (4.5-7.5) Ur Specific [place] 1.014 (1.000-1.030) Urine Protein Negative (Negative) Urine Glucose (UA) Negative (Negative) Urine Ketones 1+ H (Negative) Urine Blood Negative (Negative) Urine Nitrite Negative (Negative) Urine Bilirubin Negative (Negative) Urine Urobilinogen Negative (Negative) Ur Leukocyte Esterase Negative (Negative) Lyme Disease IgG Ab (Negative) Lyme Disease IgM Ab (Negative) COVID-19 Eval Order SARS-CoV-2 (PCR) (Negative) 05/09/21 05/09/21 05/09/21 Range/Units 15:50 15:50 15:50 WBC (4.8-10.8) K/uL RBC (4.2-5.4) M/uL Hgb (12.0-16.0) g/dL Hct (37-47) % MCV (80-100) fL MCH (25-34) pg MCHC (32-36) g/dL RDW Std Deviation (36.4-46.3) fL RDW Coeff of Susan (11.5-14.5) % Plt Count (130-400) K/uL MPV (7.4-10.4) fL Immature Gran % (Auto) % Neut % (Auto) % Lymph % (Auto) % Storey % (Auto) % Eos % (Auto) % Baso % (Auto) % Neut # (Auto) (1.4-6.5) K/uL Lymph # (Auto) (1.2-3.4) K/uL Storey # (Auto) (0.11-0.59) K/uL Eos # (Auto) (0-0.5) K/uL Baso # (Auto) (0-0.2) K/uL Immature Gran # (Auto) (0.00-0.02) K/uL PT (9.0-12.0) Seconds INR (0.9-1.1) APTT (21.0-31.0) Seconds PTT Ratio Sodium 139 (136-145) mmol/L Potassium 3.5 (3.5-5.1) mmol/L Chloride 107 (98-107) mmol/L Carbon Dioxide 27 (21-32) mmol/L Anion Gap 5.0 (3-11) BUN 10 (7-18) mg/dl Creatinine 0.66 (0.6-1.2) mg/dl Est Cr Clr Drug Dosing 79.7 ml/min Est GFR ( Amer) 97.4 ml/min Est GFR (Non-Af Amer) 84.0 ml/min BUN/Creatinine Ratio 15.9 (10-20) Glucose 96 (70-99) mg/dl Calcium 9.9 (8.5-10.1) mg/dl Magnesium 2.1 (1.8-2.4) mg/dl Total Bilirubin 1.0 (0.2-1) mg/dl AST 15 (15-37) U/L ALT 16 (12-78) U/L Alkaline Phosphatase 83 (45-117) U/L Troponin I < 0.015 (0-0.045) ng/ml Total Protein 7.8 (6.4-8.2) gm/dl Albumin 4.3 (3.4-5.0) gm/dl Globulin 3.5 (2.5-4.0) gm/dl Albumin/Globulin Ratio 1.2 (0.9-2) Urine Color Urine Appearance (Clear) Urine pH (4.5-7.5) Ur Specific [place] (1.000-1.030) Urine Protein (Negative) Urine Glucose (UA) (Negative) Urine Ketones (Negative) Urine Blood (Negative) Urine Nitrite (Negative) Urine Bilirubin (Negative) Urine Urobilinogen (Negative) Ur Leukocyte Esterase (Negative) Lyme Disease IgG Ab Negative (Negative) Lyme Disease IgM Ab Negative (Negative) COVID-19 Eval Order SARS-CoV-2 (PCR) (Negative) 05/09/21 05/09/21 Range/Units 18:37 18:37 WBC (4.8-10.8) K/uL RBC (4.2-5.4) M/uL Hgb (12.0-16.0) g/dL Hct (37-47) % MCV (80-100) fL MCH (25-34) pg MCHC (32-36) g/dL RDW Std Deviation (36.4-46.3) fL RDW Coeff of Susan (11.5-14.5) % Plt Count (130-400) K/uL MPV (7.4-10.4) fL Immature Gran % (Auto) % Neut % (Auto) % Lymph % (Auto) % Storey % (Auto) % Eos % (Auto) % Baso % (Auto) % Neut # (Auto) (1.4-6.5) K/uL Lymph # (Auto) (1.2-3.4) K/uL [place] # (Auto) (0.11-0.59) K/uL Eos # (Auto) (0-0.5) K/uL Baso # (Auto) (0-0.2) K/uL Immature Gran # (Auto) (0.00-0.02) K/uL PT (9.0-12.0) Seconds INR (0.9-1.1) APTT (21.0-31.0) Seconds PTT Ratio Sodium (136-145) mmol/L Potassium (3.5-5.1) mmol/L Chloride (98-107) mmol/L Carbon Dioxide (21-32) mmol/L Anion Gap (3-11) BUN (7-18) mg/dl Creatinine (0.6-1.2) mg/dl Est Cr Clr Drug Dosing ml/min Est GFR ( Amer) ml/min Est GFR (Non-Af Amer) ml/min BUN/Creatinine Ratio (10-20) Glucose (70-99) mg/dl Calcium (8.5-10.1) mg/dl Magnesium (1.8-2.4) mg/dl Total Bilirubin (0.2-1) mg/dl AST (15-37) U/L ALT (12-78) U/L Alkaline Phosphatase (45-117) U/L Troponin I (0-0.045) ng/ml Total Protein (6.4-8.2) gm/dl Albumin (3.4-5.0) gm/dl Globulin (2.5-4.0) gm/dl Albumin/Globulin Ratio (0.9-2) Urine Color Urine Appearance (Clear) Urine pH (4.5-7.5) Ur Specific [place] (1.000-1.030) Urine Protein (Negative) Urine Glucose (UA) (Negative) Urine Ketones (Negative) Urine Blood (Negative) Urine Nitrite (Negative) Urine Bilirubin (Negative) Urine Urobilinogen (Negative) Ur Leukocyte Esterase (Negative) Lyme Disease IgG Ab (Negative) Lyme Disease IgM Ab (Negative) COVID-19 Eval Order Covid19 at [facility] SARS-CoV-2 (PCR) NEGATIVE (Negative) Imaging Data Radiologist's Impression: Venous Doppler Study 05/09/21 15:25 ULTRASOUND BILATERAL LOWER EXTREMITY VENOUS CLINICAL HISTORY: Bilateral leg pain. COMPARISON STUDY: Bilateral lower extremity venous ultrasound dated 10/16/2013. TECHNIQUE: Real-time, grayscale, and color Doppler sonography of the deep veins of the right and left lower extremity was performed from the inguinal crease to the calf. Compression and augmentation were utilized. FINDINGS: There is no sonographic evidence of deep venous thrombosis identified in the right or left lower extremity. The common femoral, superficial femoral, and popliteal veins are patent and normally compressible bilaterally. The greater saphenous vein and the profunda femoris vein at the junction with the common femoral vein are clear in both legs. The visualized calf veins are patent bilaterally. IMPRESSION: There is no sonographic evidence of deep venous thrombosis identified in the right or left lower extremity. ACT 112: Negative or not required by law. Electronically signed by: Cesar Davila M.D. 05/09/2021 4:51 PM Knee X-Ray 05/09/21 15:26 RIGHT KNEE 2 VIEWS CLINICAL HISTORY: Right knee pain. FINDINGS: AP and crosstable lateral views the right knee are obtained. No prior studies are available for comparison at the time of dictation. The skeletal structures are osteopenic. There is no radiographic evidence of acute fracture. There is moderate to advanced tricompartmental degenerative joint space narrowing. A large joint effusion is noted. There are large patellar enthesophytes and marginal osteophytes. Atherosclerotic calcification is noted in the regional arteries. IMPRESSION: 1. Large joint effusion with no acute bony abnormality identified. 2. Osteopenia and degenerative change as above. Electronically signed by: Cesar Davila M.D. 05/09/2021 5:50 PM MDM Narrative Patient was seen and evaluated as above in room D06. Review was performed of nursing notes and vital signs. I did review pertinent previous visits and patient history. After obtaining a thorough history and physical examination the above work up was performed. Patient presents to us today with difficulty ambulating over the past several weeks now with right knee pain as well as left leg pain and feeling overall weak. She also notes numbness in the extremities. This is not unilateral. My exam reveals that the patient does have significant trouble attempting to stand from a sitting position. Vital signs stable. No focal deficit. Right knee is circumferentially edematous. Options of care were discussed with the patient. IV access was established. Labs were drawn. She initially declined pain medication however I did order the patient a hydrocodone tablet here for pain pending work-up. Ultrasound of the lower extremities does not reveal any DVT. X-ray of the right knee reveals a large joint effusion without any bony abnormality noted. I do suspect that this is likely blood as the patient does note that she twisted the right knee in the recent past. She is also anticoagulated. Do not believe that arthrocentesis at this time is required but did offer this to the patient. She respectfully dec lined. There is no leukocytosis or concerning anemia. INR 2.6. No emergent metabolic disturbance. Troponin negative. Urinalysis does not suggest infection. Lyme testing negative. Covid testing negative. EKG was obtained and does reveal normal sinus rhythm with sinus arrhythmia at a rate of 86 bpm. QTc 461. QRS 98. This was compared to the EKG performed on July 30, 2019 and changes were found. Patient does have what appears to be changes to the inferior leads. Patient denies any active chest pain. Do not suspect this to be an acute finding in the setting of negative troponin and absence of chest pain. Options of care were discussed with the patient in regard to management. At this time I do believe that she would benefit from further evaluation and management in the inpatient setting. Patient does live alone as well. Patient notes significant change in ability to ambulate over the past few weeks. Case discussed with the attending physician as well as the hospitalist. Please refer to further documentation regarding her stay. GCS: 15 In the evaluation and treatment of this patient the following differential diagnoses were entertained: ACS, NC, PE, DVT, cellulitis, CVA, TIA, electrolyte disturbance, among others. Impression & Plan Acute pain of right knee, Ambulatory dysfunction, Bilateral lower extremity pain, Feeling weak, Effusion of knee joint right Discharge Plan Visit Data Chief Complaint: Knee Injury/Pain Stated Complaint: R KNEE SWOLLEN, DIFFICULTY AMBULATING ED Provider: Mimi Patterson ED Midlevel Provider: Jasen Orellana Discharge Problem: Acute pain of right knee, Ambulatory dysfunction, Bilateral lower extremity pain, Feeling weak, Effusion of knee joint right Patient Disposition: Admitted As Inpatient Condition: Good Discharge Instructions Interventions: ED Discharge Assessment Last Done: 05/09/21 20:39
[2021-05-09 16:00] LABS: Basophils # (auto) 0.01 K/uL (0-0.2); Basophils % (auto) 0.1 %; Eosinophils # (auto) 0.07 K/uL (0-0.5); Eosinophils % (auto) 0.9 %; Hematocrit (blood only) 40.9 % (37-47); Hemoglobin 13.6 g/dL (12.0-16.0); Immature Granulocytes # (auto) 0.02 K/uL (0.00-0.02); Immature Granulocytes % (auto) 0.3 %; Lymphocytes % (auto) 30.9 %; Mean Corpuscular Hemoglobin 31.6 pg (25-34); Mean Corpuscular Hgb Conc 33.3 g/dL (32-36); Mean Corpuscular Volume 95.1 fL (80-100); Mean Platelet Volume 10.2 fL (7.4-10.4); Monocytes # (auto) 0.57 K/uL (0.11-0.59); Monocytes % (auto) 7.3 %; Neutrophils % (auto) 60.5 %; Platelet Count 337 K/uL (130-400); RDW Coefficient of Variation 13.7 % (11.5-14.5); RDW Standard Deviation 47.4 fL (36.4-46.3); White Blood Count 7.77 K/uL (4.8-10.8)
[2021-05-09 16:14] LABS: Appearance Urine Clear (Clear); Bilirubin Urine Negative (Negative); Blood Urine Negative (Negative); Color Urine Yellow; Glucose Urine UA Negative (Negative); Ketones Urine 1+ (Negative); Leukocyte Esterase Urine Negative (Negative); Nitrite Urine Negative (Negative); Protein Urine Negative (Negative); Specific Gravity Urine 1.014 (1.000-1.030); Urobilinogen Urine Negative (Negative); pH Urine >= 9.0 (4.5-7.5)
[2021-05-09 16:20] LABS: INR 2.6 (0.9-1.1); Partial Thromboplastin Ratio 1.8; Prothrombin Time 24.8 Seconds (9.0-12.0)
[2021-05-09 16:24] LABS: Partial Thromboplastin Time 47.9 Seconds (21.0-31.0)
[2021-05-09 16:26] LABS: Alanine Aminotransferase 16 U/L (12-78); Albumin Level 4.3 gm/dl (3.4-5.0); Aspartate Aminotransferase 15 U/L (15-37); BUN Creatinine Ratio 15.9 (10-20); Blood Urea Nitrogen 10 mg/dl (7-18); Calcium 9.9 mg/dl (8.5-10.1); Carbon Dioxide 27 mmol/L (21-32); Chloride 107 mmol/L (98-107); Creatinine Clr Calc Pharmacy 79.7 ml/min; Est GFR (African American) 97.4 ml/min; Glucose 96 mg/dl (70-99); Potassium 3.5 mmol/L (3.5-5.1); Sodium 139 mmol/L (136-145)
[2021-05-09 16:30] LABS: Albumin Globulin Ratio 1.2 (0.9-2); Alkaline Phosphatase 83 U/L (45-117); Globulin 3.5 gm/dl (2.5-4.0); Total Protein 7.8 gm/dl (6.4-8.2); Troponin I < 0.015 ng/ml (0-0.045)
--- NOTE | 2021-05-09 16:52 | Ultrasound Report ---
ULTRASOUND BILATERAL LOWER EXTREMITY VENOUS CLINICAL HISTORY: Bilateral leg pain. COMPARISON STUDY: Bilateral lower extremity venous ultrasound dated 10/16/2013. TECHNIQUE: Real-time, grayscale, and color Doppler sonography of the deep veins of the right and left lower extremity was performed from the inguinal crease to the calf. Compression and augmentation wer e utilized. FINDINGS: There is no sonographic evidence of deep venous thrombosis identified in the right or left lower extremity. The common femoral, superficial femoral, and popliteal veins are patent and normally compressible bilaterally. The greater saphenous vein and the profunda femoris vein at the junction w ith the common femoral vein are clear in both legs. The visualized calf veins are patent bilaterally. IMPRESSION: There is no sonographic evidence of deep venous thrombosis identified in the right or lef t lower extremity. ACT 112: Negative or not required by law. Electronically signed by: Cesar Davila M.D. 05/09/2021 4:51 PM
--- NOTE | 2021-05-09 17:52 | XRay Report ---
RIGHT KNEE 2 VIEWS CLINICAL HISTORY: Right knee pain. FINDINGS: AP and crosstable lateral views the right knee are obtained. No prior studies are available for comparison at the time of dictation. The skeletal structures are osteopenic. There is no radiogr aphic evidence of acute fracture. There is moderate to advanced tricompartmental degenerative joint s pace narrowing. A large joint effusion is noted. There are large patellar enthesophytes and marginal osteophytes. Atherosclerotic calcification is noted in the regional arteries. IMPRESSION: 1. Large joint effusion with no acute bony abnormality identified. 2. Osteopenia and degenerative change as above. Electronically signed by: Cesar Davila M.D. 05/09/2021 5:50 PM
[2021-05-09] MEDS ORDERED: HYDROCODONE/ACETAMOPHEN 5/325MG TAB PO STA (18:03)
[2021-05-09] MEDS ORDERED: LIDO/EPINEPHRINE/SOD BICARB 20 ML VIAL INFIL ONE (18:18)
[2021-05-09 18:51] LABS: Lyme Ab IgG w/WB Rflx Negative (Negative); Lyme Ab IgM w/WB Rflx Negative (Negative)
--- NOTE | 2021-05-09 20:03 | History & Physical Report ---
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 Patient refusing arthrocentesis at the ER. chronic diastolic heart failure (EF 60%, TTE 2019), patient euvolemic hypertension, stable hyperlipidemia on statin Rx mood disorder at baseline OBS GMF Analgesia, local measures for right knee effusion. Patient adamantly refusing Orthopedics consultation. PT OT eval DVT prophylaxis. Coumadin INR goal between 2 and 3 if hemoglobin stable DNR Text document was generated using [employer] voice recognition software. It may contain grammatical or spelling errors. Kindly contact undersigned for clarification of any documentation item in question. History of Present Illness Chief Complaint: Right knee swelling, trouble walking Primary Care Provider: Carin Lebron, History obtained from patient and records. 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 Last confinement May 2018 for chest pain. Few days ago patient injured her right knee in the bathroom. Subsequent painful right knee swelling leading to trouble with ambulation. No headache, no chest pain, no S OB, no unusual fluid retention. Patient consulted ER for evaluation. 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 Allergies Allergy/AdvReac Type Severity Reaction Status Date / Time nitroglycerin Allergy Unknown Unknown Verified 05/09/21 19:44 Home Medications Medication Instructions Recorded Confirmed Type Adempas 2 mg PO TID 07/30/19 05/09/21 History calcium carb and citrate-vitD3 1 tab PO QAM 07/30/19 05/09/21 History [Citracal-D3 Slow Release] fluticasone propionate 2 spray INTRANASAL QAM 07/30/19 05/09/21 History multivitamin 1 tab PO QAM 07/30/19 05/09/21 History paroxetine HCl 30 mg PO DAILY 07/30/19 05/09/21 History simvastatin 20 mg PO HS 07/30/19 05/09/21 History warfarin 2.5 mg PO MOFR 07/30/19 05/09/21 History warfarin 5 mg PO SUTUWETHSA 07/30/19 05/09/21 History acetaminophen [Tylenol Extra 1,000 mg PO Q6H PRN 10/19/19 05/09/21 History Strength] ascorbic acid (vitamin C) [Vitamin 500 mg PO BID 05/09/21 05/09/21 History C] methylcellulose (with sugar) 1 tbsp PO DAILY 05/09/21 05/09/21 History [Citrucel (sucrose)] sodium chloride [[place] Nasal Mist] 2 spray INTRANASAL QID PRN 05/09/21 05/09/21 History Past Med/Surg History Medical History (Updated 05/10/21 @ 03:20 by Jerald Montano MD) Anxiety Diverticular disease of colon Dyslipidemia History of anesthesia reaction was instructed after embolectomy to never have "heavy anesthesia because I may not wake up or I would end up on a ventilator" History of colonic diverticulitis History of pulmonary embolism per pt d/t not being active? Pulmonary nodule "RUL 6 mm, CT 06/14/17 and 05/09/18." Surgical History History of bilateral cataract extraction History of cardiac cath x3--last 2014--no stents---follows with Dr. Abbott History of colonoscopy History of embolectomy 2003 "for pulmonary embolism" @ [facility] History of esophagogastroduodenoscopy (EGD) History of hemorrhoidectomy History of tonsillectomy History of tooth extraction History of vascular access device "Krueger cath, removed"--per pt was in for 11 years Status post appendectomy Status post cholecystectomy Status post insertion of inferior vena caval filter марина filter Family History Father Family hx of colon cancer Other Family history non-contributory No family history of adverse response to anesthesia Social History Smoking Status: Never smoker Second Hand Exposure: Yes; Hx Alcohol Use: No Hx Substance Use: No Preferred Language: Tajik Communication Ability: Effective 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 Beliefs That Will Affect Care: None Current Living Situation: Alone Feels Safe at Home: Yes Safety Concerns: Feels Safe At This Time Assistive Devices: Glasses and Walker Review of Systems Review of Systems: As per HPI, all 10 systems reviewed, all other ROS negative Physical Exam Physical Exam: GENERAL: Comfortable, slightly anxious, pleasant, looks younger for stated age, no respiratory distress SKIN: Normal color, warm HEENT: Bespectacled, [place] palpebral conjunctivae, no ptosis, moist buccal mucosa NECK : Supple, no tenderness CHEST : CTA, no tenderness HEART : RRR, no obvious murmurs ABDOMEN: Some distention, nontender EXTREMITIES : Tender right knee swelling, no other conspicuous deformities noted NEUROLOGIC : Coherent, no facial asymmetry, no other gross focality Results & Data Results & Data ([facility]) Vital Signs (Past 12 Hours) Vital Signs Temp Pulse Resp BP Pulse Ox 05/09/21 19:00 75 15 130/73 93 05/09/21 18:45 78 18 133/75 98 05/09/21 18:31 78 15 145/76 H 98 05/09/21 18:30 81 17 96 05/09/21 18:15 81 15 128/67 98 05/09/21 18:00 86 22 130/81 100 05/09/21 17:45 80 19 125/81 93 05/09/21 17:41 79 14 98 05/09/21 17:40 78 19 122/78 97 05/09/21 16:20 82 16 95 05/09/21 16:15 77 20 134/85 94 05/09/21 16:10 86 17 94 05/09/21 16:00 81 17 147/78 H 98 05/09/21 15:50 75 18 97 05/09/21 15:45 80 17 148/86 H 98 05/09/21 15:43 88 19 97 05/09/21 15:40 86 17 149/101 H 98 05/09/21 12:59 36.6 C 98 H 18 94/59 L 98 Laboratory Results Laboratory Results WBC 7.77 K/uL (4.8-10.8) 05/09/21 15:50 RBC 4.30 M/uL (4.2-5.4) 05/09/21 15:50 Hgb 13.6 g/dL (12.0-16.0) 05/09/21 15:50 Hct 40.9 % (37-47) 05/09/21 15:50 MCV 95.1 fL (80-100) 05/09/21 15:50 MCH 31.6 pg (25-34) 05/09/21 15:50 MCHC 33.3 g/dL (32-36) 05/09/21 15:50 RDW Std Deviation 47.4 fL (36.4-46.3) H 05/09/21 15:50 RDW Coeff of Susan 13.7 % (11.5-14.5) 05/09/21 15:50 Plt Count 337 K/uL (130-400) 05/09/21 15:50 MPV 10.2 fL (7.4-10.4) 05/09/21 15:50 Immature Gran % (Auto) 0.3 % 05/09/21 15:50 Neut % (Auto) 60.5 % 05/09/21 15:50 Lymph % (Auto) 30.9 % 05/09/21 15:50 [place] % (Auto) 7.3 % 05/09/21 15:50 Eos % (Auto) 0.9 % 05/09/21 15:50 Baso % (Auto) 0.1 % 05/09/21 15:50 Neut # (Auto) 4.70 K/uL (1.4-6.5) 05/09/21 15:50 Lymph # (Auto) 2.40 K/uL (1.2-3.4) 05/09/21 15:50 [place] # (Auto) 0.57 K/uL (0.11-0.59) 05/09/21 15:50 Eos # (Auto) 0.07 K/uL (0-0.5) 05/09/21 15:50 Baso # (Auto) 0.01 K/uL (0-0.2) 05/09/21 15:50 Immature Gran # (Auto) 0.02 K/uL (0.00-0.02) 05/09/21 15:50 PT 24.8 Seconds (9.0-12.0) H 05/09/21 15:50 INR 2.6 (0.9-1.1) H 05/09/21 15:50 APTT 47.9 Seconds (21.0-31.0) H* 05/09/21 15:50 PTT Ratio 1.8 05/09/21 15:50 Sodium 139 mmol/L (136-145) 05/09/21 15:50 Potassium 3.5 mmol/L (3.5-5.1) 05/09/21 15:50 Chloride 107 mmol/L (98-107) 05/09/21 15:50 Carbon Dioxide 27 mmol/L (21-32) 05/09/21 15:50 Anion Gap 5.0 (3-11) 05/09/21 15:50 BUN 10 mg/dl (7-18) 05/09/21 15:50 Creatinine 0.66 mg/dl (0.6-1.2) 05/09/21 15:50 Est Cr Clr Drug Dosing 79.7 ml/min 05/09/21 15:50 Est GFR ( Amer) 97.4 ml/min 05/09/21 15:50 Est GFR (Non-Af Amer) 84.0 ml/min 05/09/21 15:50 BUN/Creatinine Ratio 15.9 (10-20) 05/09/21 15:50 Glucose 96 mg/dl (70-99) 05/09/21 15:50 Calcium 9.9 mg/dl (8.5-10.1) 05/09/21 15:50 Magnesium 2.1 mg/dl (1.8-2.4) 05/09/21 15:50 Total Bilirubin 1.0 mg/dl (0.2-1) 05/09/21 15:50 AST 15 U/L (15-37) 05/09/21 15:50 ALT 16 U/L (12-78) 05/09/21 15:50 Alkaline Phosphatase 83 U/L (45-117) 05/09/21 15:50 Troponin I < 0.015 ng/ml (0-0.045) 05/09/21 15:50 Total Protein 7.8 gm/dl (6.4-8.2) 05/09/21 15:50 Albumin 4.3 gm/dl (3.4-5.0) 05/09/21 15:50 Globulin 3.5 gm/dl (2.5-4.0) 05/09/21 15:50 Albumin/Globulin Ratio 1.2 (0.9-2) 05/09/21 15:50 Urine Color Yellow 05/09/21 15:00 Urine Appearance Clear (Clear) 05/09/21 15:00 Urine pH >= 9.0 (4.5-7.5) H 05/09/21 15:00 Ur Specific [place] 1.014 (1.000-1.030) 05/09/21 15:00 Urine Protein Negative (Negative) 05/09/21 15:00 Urine Glucose (UA) Negative (Negative) 05/09/21 15:00 Urine Ketones 1+ (Negative) H 05/09/21 15:00 Urine Blood Negative (Negative) 05/09/21 15:00 Urine Nitrite Negative (Negative) 05/09/21 15:00 Urine Bilirubin Negative (Negative) 05/09/21 15:00 Urine Urobilinogen Negative (Negative) 05/09/21 15:00 Ur Leukocyte Esterase Negative (Negative) 05/09/21 15:00 Lyme Disease IgG Ab Negative (Negative) 05/09/21 15:50 Lyme Disease IgM Ab Negative (Negative) 05/09/21 15:50 COVID-19 Eval Order Covid19 at [facility] 05/09/21 18:37 SARS-CoV-2 (PCR) NEGATIVE (Negative) 05/09/21 18:37 Impressions Venous Doppler Study 05/09/21 15:25 ULTRASOUND BILATERAL LOWER EXTREMITY VENOUS CLINICAL HISTORY: Bilateral leg pain. COMPARISON STUDY: Bilateral lower extremity venous ultrasound dated 10/16/2013. TECHNIQUE: Real-time, grayscale, and color Doppler sonography of the deep veins of the right and left lower extremity was performed from the inguinal crease to the calf. Compression and augmentation were utilized. FINDINGS: There is no sonographic evidence of deep venous thrombosis identified in the right or left lower extremity. The common femoral, superficial femoral, and popliteal veins are patent and normally compressible bilaterally. The greater saphenous vein and the profunda femoris vein at the junction with the common femoral vein are clear in both legs. The visualized calf veins are patent bilaterally. IMPRESSION: There is no sonographic evidence of deep venous thrombosis identified in the right or left lower extremity. ACT 112: Negative or not required by law. Electronically signed by: Cesar Davila M.D. 05/09/2021 4:51 PM Knee X-Ray 05/09/21 15:26 RIGHT KNEE 2 VIEWS CLINICAL HISTORY: Right knee pain. FINDINGS: AP and crosstable lateral views the right knee are obtained. No prior studies are available for comparison at the time of dictation. The skeletal structures are osteopenic. There is no radiographic evidence of acute fracture. There is moderate to advanced tricompartmental degenerative joint space narrowing. A large joint effusion is noted. There are large patellar enthesophytes and marginal osteophytes. Atherosclerotic calcification is noted in the regional arteries. IMPRESSION: 1. Large joint effusion with no acute bony abnormality identified. 2. Osteopenia and degenerative change as above. Electronically signed by: Cesar Davila M.D. 05/09/2021 5:50 PM Diagnostic Findings EKG as per my interpretation: Rate 85, NSR, normal axis, T wave inversion in anteroseptal leads
[2021-05-09] MEDS ORDERED: PROMETHAZINE HCL 12.5 MG in SODIUM CHLORIDE 0.9% 50 ML IV PRN (21:55)
[2021-05-09] MEDS ORDERED: MoRPHine SULFATE 4 MG/ML 1 ML CARP\\VIAL IV PRN (21:55)
[2021-05-09] MEDS ORDERED: ACETAMINOPHEN 325 MG TAB PO PRN (21:55)
[2021-05-09] MEDS ORDERED: ADEMPAS PO SCH (22:45)
[2021-05-09] MEDS: SIMVASTATIN 20 MG TAB PO SCH (22:51)
[2021-05-10] MEDS: oxyCODONE HCL IR 5 MG TAB (IMMEDIATE RELEASE) PO PRN ×2 (02:31→20:51)
[2021-05-10 06:10] LABS: Basophils # (auto) 0.02 K/uL (0-0.2); Basophils % (auto) 0.3 %; Eosinophils # (auto) 0.11 K/uL (0-0.5); Eosinophils % (auto) 1.9 %; Hematocrit (blood only) 36.5 % (37-47); Hemoglobin 12.2 g/dL (12.0-16.0); Immature Granulocytes # (auto) 0.01 K/uL (0.00-0.02); Immature Granulocytes % (auto) 0.2 %; Lymphocytes # (auto) 1.83 K/uL (1.2-3.4); Lymphocytes % (auto) 31.2 %; Mean Corpuscular Hemoglobin 31.3 pg (25-34); Mean Corpuscular Hgb Conc 33.4 g/dL (32-36); Mean Corpuscular Volume 93.6 fL (80-100); Mean Platelet Volume 9.8 fL (7.4-10.4); Monocytes # (auto) 0.66 K/uL (0.11-0.59); Monocytes % (auto) 11.2 %; Neutrophils # (auto) 3.24 K/uL (1.4-6.5); Neutrophils % (auto) 55.2 %; Platelet Count 273 K/uL (130-400); RDW Coefficient of Variation 13.9 % (11.5-14.5); RDW Standard Deviation 47.3 fL (36.4-46.3); White Blood Count 5.87 K/uL (4.8-10.8)
[2021-05-10 06:19] LABS: INR 2.2 (0.9-1.1)
--- NOTE | 2021-05-10 06:38 | Electrocardiogram Report ---
Test Reason : Blood Pressure : / mmHG Vent. Rate : 086 BPM Atrial Rate : 086 BPM P-R Int : 194 ms QRS Dur : 098 ms QT Int : 386 ms P-R-T Axes : 000 088 -49 degrees QTc Int : 461 ms Normal sinus rhythm with sinus arrhythmia Low voltage QRS Abnormal ECG When compared with ECG of 30-JUL-2019 18:54, ST now depressed in Inferior leads T wave inversion now evident in Inferior leads Nonspecific T wave abnormality now evident in Anterolateral leads Confirmed by Julio Galarza ([id number]) on 05/10/2021 6:38:18 AM Referred By: REFERRED SELF Confirmed By:Julio Galarza
[2021-05-10] MEDS ORDERED: ADEMPAS PO SCH (07:00)
[2021-05-10] MEDS: FLUTICASONE PROPIONATE NA SPR 16 GM BTL SCH (09:28)
[2021-05-10] MEDS: CALCIUM 600MG + VIT D 400 IU TAB PO SCH (09:29)
[2021-05-10] MEDS: MULTIVITAMIN TAB PO SCH (09:29)
[2021-05-10] MEDS: PARoxetine HCL 10 MG TAB PO SCH (09:29)
[2021-05-10] MEDS: METHYLCELLULOSE POWDER 454 GM JAR PO SCH (09:30)
--- NOTE | 2021-05-10 13:37 | Hospitalist Progress Note ---
Date of Service May 10, 2021 Assessment & Plan (1) Effusion, right knee: Right knee effusion causing ambulatory dysfunction Based on exam, my suspicion for hemarthrosis is low, though it is a possibility considering patient is on coumadin Patient refused arthrocentesis in ER and continues to declines ortho c/s States she needs PT PT evaluation noted. Monitor today. 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 Continue home med DVT prophylaxis. 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 Knee x-ray on admission reports large joint effusion. Patient seen and examined. Reports significant improvement with cold compress overnight to right knee. Reports no swelling. Reports pain with full extension of knee or with activity. Stated pain is chronic but worsened slightly after injury in bathroom. Denied any fall or trauma to the knees Review of Systems Review of Systems: All systems reviewed & are unremarkable except as noted in Subjective Physical Exam Constitutional: + well hydrated; no acute distress Elderly woman Eyes: PERRL, conjunctivae normal, anicteric sclerae ENMT: external ear and nose normal, oropharynx normal Respiratory: normal respiratory effort, lungs clear to auscultation Cardiovascular: Rate/Rhythm: regular rate and regular rhythm S1 S2 Gastrointestinal (Abdomen): normal bowel sounds, soft, nontender, no hepatosplenomegaly Musculoskeletal: Mild right knee swelling. No bruises. No tenderness. Reports some pain with extension of knee Neurologic: PERRL, EOMI, accommodation nl, no face palsy, no dysarthria Psychiatric: A+Ox3, euthymic affect Genitourinary: no CVA tenderness Results & Data Results & Data ([facility]) Vital Signs (Past 12 Hours) Vital Signs Temp Pulse Resp BP Pulse Ox 05/10/21 09:25 110/65 05/10/21 07:29 89/47 L 05/10/21 07:20 36.5 C 73 16 86/44 L 93 Laboratory Results Abnormal lab results 05/09/21 05/09/21 05/09/21 Range/Units 15:00 15:50 15:50 RBC (4.2-5.4) M/uL Hct (37-47) % RDW Std Deviation 47.4 H (36.4-46.3) fL [place] # (Auto) (0.11-0.59) K/uL PT 24.8 H (9.0-12.0) Seconds INR 2.6 H (0.9-1.1) APTT 47.9 H* (21.0-31.0) Seconds Urine pH >= 9.0 H (4.5-7.5) Urine Ketones 1+ H (Negative) 05/10/21 05/10/21 Range/Units 05:53 05:53 RBC 3.90 L (4.2-5.4) M/uL Hct 36.5 L (37-47) % RDW Std Deviation 47.3 H (36.4-46.3) fL [place] # (Auto) 0.66 H (0.11-0.59) K/uL PT 21.0 H (9.0-12.0) Seconds INR 2.2 H (0.9-1.1) APTT (21.0-31.0) Seconds Urine pH (4.5-7.5) Urine Ketones (Negative)
[2021-05-10] MEDS: ADEMPAS PO SCH ×2 (14:56→22:57)
[2021-05-10] MEDS: WARFARIN SOD 5 MG TAB PO SCH (16:31)
[2021-05-10] MEDS: SIMVASTATIN 20 MG TAB PO SCH (20:52)
[2021-05-11 05:59] LABS: Hematocrit (blood only) 35.5 % (37-47); Hemoglobin 11.6 g/dL (12.0-16.0); Mean Corpuscular Hemoglobin 31.4 pg (25-34); Mean Corpuscular Hgb Conc 32.7 g/dL (32-36); Mean Corpuscular Volume 96.2 fL (80-100); Mean Platelet Volume 10.3 fL (7.4-10.4); Platelet Count 268 K/uL (130-400); RDW Coefficient of Variation 13.8 % (11.5-14.5); RDW Standard Deviation 48.9 fL (36.4-46.3); Red Blood Count 3.69 M/uL (4.2-5.4); White Blood Count 5.77 K/uL (4.8-10.8)
[2021-05-11 06:07] LABS: INR 2.4 (0.9-1.1); Prothrombin Time 22.8 Seconds (9.0-12.0)
[2021-05-11] MEDS: ADEMPAS PO SCH ×2 (07:11→14:58)
[2021-05-11] MEDS: MULTIVITAMIN TAB PO SCH (08:39)
[2021-05-11] MEDS: FLUTICASONE PROPIONATE NA SPR 16 GM BTL SCH (08:39)
[2021-05-11] MEDS: METHYLCELLULOSE POWDER 454 GM JAR PO SCH (08:39)
[2021-05-11] MEDS: CALCIUM 600MG + VIT D 400 IU TAB PO SCH (08:40)
[2021-05-11] MEDS: PARoxetine HCL 10 MG TAB PO SCH (08:40)
[2021-05-11] MEDS: oxyCODONE HCL IR 5 MG TAB (IMMEDIATE RELEASE) PO PRN (08:47)
--- NOTE | 2021-05-11 13:11 | Discharge Summary ---
Date of Service May 11, 2021 Admission HPI Per Admitting Provider History obtained from patient and records. 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 Last confinement May 2018 for chest pain. Few days ago patient injured her right knee in the bathroom. Subsequent painful right knee swelling leading to trouble with ambulation. No headache, no chest pain, no S OB, no unusual fluid retention. Patient consulted ER for evaluation. 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 Admission Exam Per Admitting Provider GENERAL: Comfortable, slightly anxious, pleasant, looks younger for stated age, no respiratory distress SKIN: Normal color, warm HEENT: Bespectacled, [place] palpebral conjunctivae, no ptosis, moist buccal mucosa NECK : Supple, no tenderness CHEST : CTA, no tenderness HEART : RRR, no obvious murmurs ABDOMEN: Some distention, nontender EXTREMITIES : Tender right knee swelling, no other conspicuous deformities noted NEUROLOGIC : Coherent, no facial asymmetry, no other gross focality Principal Diagnosis Right knee effusion Discharge Exam Constitutional + well hydrated; no acute distress Eyes PERRL, conjunctivae normal, anicteric sclerae ENMT external ear and nose normal, oropharynx normal Respiratory normal respiratory effort, lungs clear to auscultation Cardiovascular Rate/Rhythm: regular rate and regular rhythm Gastrointestinal (Abdomen) normal bowel sounds, soft, nontender, no hepatosplenomegaly Musculoskeletal Mild right knee swelling. No bruises. No tenderness. Still reports some pain with extension of knee Neurologic PERRL, EOMI, accommodation nl, no face palsy, no dysarthria Psychiatric A+Ox3, euthymic affect Genitourinary no CVA tenderness Discharge Data Allergies Allergy/AdvReac Type Severity Reaction Status Date / Time nitroglycerin Allergy Unknown Unknown Verified 05/09/21 19:44 Consultations 05/09/21 18:31 ED Decision to Admit Stat Ordered Studies 05/09/21 15:25 US venous doppler LE BI Stat There is no sonographic evidence of deep venous thrombosis identified in the right or left lower extremity. The common femoral, superficial femoral, and popliteal veins are patent and normally compressible bilaterally. The greater saphenous vein and the profunda femoris vein at the junction with the common femoral vein are clear in both legs. The visualized calf veins are patent bilaterally. IMPRESSION: There is no sonographic evidence of deep venous thrombosis identified in the right or left lower extremity. Hospital Course (1) Effusion, right knee: Right knee effusion causing ambulatory dysfunction Based on exam, my suspicion for hemarthrosis is low, though it is a possibility considering patient is on coumadin Patient refused arthrocentesis in ER Evaluated by PT Patient requesting rehab Pain control with tylenol. 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 Continue home med Total Time Total Time Spent Total Time Spent (In Minutes): 45 Total Time Includes: Examination of the Patient, Discharge Planning and Medication Reconciliation Discharge Plan Discharge Items Patient Disposition: Transfer Inpatient Rehab Fac Reason For Visit: R KNEE SWELLING Discharge Diagnosis: Right knee effusion Condition on Discharge: Good Activity: As commented below Activity Comment: According to physical therapist recommendation Non-emergency contact: Primary Care Provider Call non-emergency contact if: you have any medication questions Follow-up/Referrals: Carin Lebron DO [Primary Care Provider] - (Date & Time 05/16/2021 2:20 PM Provider Carin Lebron DO Department [facility] ) Diet: Heart Healthy Addtl Attending Provider Instructions: Mrs Roth You came to the hospital complaining of worsening right knee pain. You were evaluated and noted to have right knee effusion. You declined proc edure/orthopedic evaluation. You were managed with medication. You are being discharged to rehab. Please ensure follow up with your Primary Doctor. Pending Studies at Discharge: No Stand-Alone Forms: My [facility] Skilled Items Patient informed of condition?: Yes DNR: Yes Discharge Level of Care: Acute rehab Communicable Disease: No Discharge Prognosis: Stable Lines: None Urinary Catheter: No Medications and DC Order Prescriptions: New lidocaine 4 % adhesive patch,medicated 1 patch topical DAILY Qty: 10 RF: 0 Continued multivitamin Tablet 1 tab PO QAM RF: 0 paroxetine HCl 10 mg tablet 30 mg PO DAILY RF: 0 simvastatin 20 mg tablet 20 mg PO HS RF: 0 warfarin 5 mg tablet 2.5 mg PO MOFR RF: 0 warfarin 5 mg tablet 5 mg PO SUTUWETHSA RF: 0 fluticasone propionate 50 mcg/actuation spray,suspension 2 spray intranasal QAM RF: 0 calcium carb and citrate-vitD3 [Citracal-D3 Slow Release] 600 mg calcium- 500 unit Tablet Extended Release 1 tab PO QAM RF: 0 Adempas 2 mg tablet 2 mg PO TID RF: 0 ascorbic acid (vitamin C) [Vitamin C] 500 mg Tablet 500 mg PO BID RF: 0 sodium chloride 0.65 % Aerosol,[place] 2 spray INTRANASAL QID PRN (Reason: Nasal Congestion) RF: 0 Citrucel (sucrose) Powder 1 tbsp PO DAILY RF: 0 acetaminophen [Tylenol Extra Strength] 500 mg Tablet 1,000 mg PO Q6H PRN (Reason: Pain) Qty: 0 RF: 0 Discharge Orders: Discharge Order (Routine); Ordered 05/11/21 Ordered By: Nicolasa Salcedo Admission Data Admit Date/Time: 05/10/21 16:00 Attending Provider: Nicolasa Salcedo I. Admit Provider: Jerald Montano Primary Care Provider: Carin Lebron Other Providers: Jerald Montano ; [facility] Other Interventions: Discharge Summary Assessment (RN) Last Done: 05/11/21 13:52
[2021-05-11] MEDS: WARFARIN SOD 5 MG TAB PO SCH (15:04)
[2021-05-12] MEDS ORDERED: WARFARIN SOD 2.5 MG TAB PO SCH (16:00)
== END 2021-05-11 16:29 | DRG 565 ==
LOC: 3N 12:31 → ED 12:31 → SUATTDRO 20:08 → 3N 20:39

== ENCOUNTER 2023-02-05 12:26 | Inpatient (IN) ==
[2023-02-05] MEDS ORDERED: SODIUM CHLORIDE 0.9% 500 ML IV ONE ×2 (12:49→14:30)
--- NOTE | 2023-02-05 13:10 | XRay Report ---
SINGLE VIEW CHEST CLINICAL HISTORY: Atypical chest pain. FINDINGS: 2 AP, portable, upright chest radiographs are compared to study dated 07/30/2019 and correla maurisio with chest CT dated 05/19/2019. The examination is degraded by portable technique and patient rota tion. The patient is status post midline sternotomy. The heart is enlarged. The pulmonary vasculature is noncongested. Enlargement of the central pulmonary arteries suggests pulmonary hypertension. Film Sorter milena interstitial thickening is similar to previous. There is bibasilar scarring/atelectasis. No airsp rell consolidation or large pleural effusion is identified. No pneumothorax is seen. The skeletal stru ctures are osteopenic. The bony thorax is grossly intact. IMPRESSION: Cardiomegaly with no acute cardiopulmonary abnormality identified. ACT 112: Negative or not required by law. Electronically signed by: Cesar Davila M.D. 02/05/2023 1:09 PM
[2023-02-05 13:19] LABS: Basophils # (auto) 0.05 K/uL (0-0.2); Eosinophils # (auto) 0.07 K/uL (0-0.50); Eosinophils % (auto) 1.4 %; Hematocrit (blood only) 41.2 % (37.0-47.0); Hemoglobin 14.2 g/dl (12.0-16.0); Immature Granulocytes # (auto) 0.01 K/uL (0.01-0.20); Immature Granulocytes % (auto) 0.2 %; Lymphocytes # (auto) 2.03 K/uL (1.2-3.4); Lymphocytes % (auto) 39.2 %; Mean Corpuscular Hemoglobin 32.1 pg (25.0-34.0); Mean Corpuscular Hgb Conc 34.5 g/dL (32.0-36.0); Mean Platelet Volume 10.6 fL (9.4-12.4); Monocytes # (auto) 0.42 K/uL (0.11-0.59); Monocytes % (auto) 8.1 %; Neutrophils % (auto) 50.1 %; Platelet Count 277 K/uL (130-400); RDW Coefficient of Variation 12.7 % (11.5-14.5); RDW Standard Deviation 43.8 fL (36.4-46.3); Red Blood Count 4.43 M/uL (4.20-5.40); White Blood Count 5.18 K/ul (4.8-10.8)
[2023-02-05 13:30] LABS: Troponin I High Sensitivity 5.8 pg/ml (0-14)
[2023-02-05 13:35] LABS: Albumin Level 4.6 gm/dl (3.4-5.0); Bilirubin,Total 0.8 mg/dl (0.2-1.0); Calcium 9.8 mg/dl (8.6-10.3); Potassium 3.8 mmol/L (3.5-5.1)
[2023-02-05 13:41] LABS: Albumin Globulin Ratio 1.6 (0.9-2); BUN Creatinine Ratio 21.2 (10-20); Creatinine Clr Calc Pharmacy 69.9 ml/min; Est GFR (Non-African American) 82.8 ml/min; Globulin 2.9 gm/dl (2.5-4.0); Phosphorus 3.2 mg/dl (2.5-4.9); Total Protein 7.5 gm/dl (6.0-8.3)
[2023-02-05] MEDS ORDERED: dexAMETHasone**PF** 10 MG/ML VIAL IV ONE (14:29)
[2023-02-05] MEDS ORDERED: ACETAMINOPHEN 1,000 MG/100 ML VIAL IV STA (14:29)
--- NOTE | 2023-02-05 15:12 | Electrocardiogram Report ---
Test Reason : Blood Pressure : / mmHG Vent. Rate : 083 BPM Atrial Rate : 083 BPM P-R Int : 194 ms QRS Dur : 090 ms QT Int : 406 ms P-R-T Axes : 073 090 067 degrees QTc Int : 477 ms Poor data quality, interpretation may be adversely affected Normal sinus rhythm with occasional Premature atrial complexes Rightward axis Low voltage QRS Nonspecific T wave abnormality Anterior leads Prolonged QT Abnormal ECG When compared with ECG of 14-JUL-2021 13:27, No significant change Confirmed by Edwin Reyes ([id number]) on 02/05/2023 3:12:19 PM Referred By: Confirmed By:Edwin Reyes
[2023-02-05 15:16] LABS: Appearance Urine Clear (Clear); Bilirubin Urine Negative (Negative); Blood Urine Negative (Negative); Color Urine Yellow; Glucose Urine UA Negative (Negative); Ketones Urine Negative (Negative); Leukocyte Esterase Urine Negative (Negative); Nitrite Urine Negative (Negative); Protein Urine Negative (Negative); Specific Gravity Urine 1.009 (1.000-1.030); Urobilinogen Urine Negative (Negative); pH Urine 8.5 (4.5-7.5)
[2023-02-05 15:22] LABS: INR 2.2 (0.9-1.1)
[2023-02-05] MEDS ORDERED: OPTIRAY 320 500ml IV ONE (15:35)
[2023-02-05 16:01] LABS: Influenza A virus by PCR Negative (Neg); Influenza B virus by PCR Negative (Neg); RSV by PCR Negative (Neg); SARS CoV2 RNA(COVID-19) Ceph NEGATIVE (Negative)
--- NOTE | 2023-02-05 16:08 | CT Scan Report ---
CT SCAN OF THE BRAIN WITHOUT IV CONTRAST CLINICAL HISTORY: Headache. COMPARISON STUDY: CT of the brain dated 07/14/2021. TECHNIQUE: Unenhanced axial CT scan of the brain is performed from the vertex to the skull base. A do se lowering technique was utilized adhering to the principles of ALARA. FINDINGS: Brain parenchyma: A 4.2 x 3.4 cm extra-axial mass at the left vertex along the falx has modestly incr eased in size from previous. There is mild localized mass effect and minimal focal left to right midl ine shift. There is age-related involutional change noting mild to moderate subcortical and periventr icular microangiopathic disease. There is no hemorrhage or evidence of acute territorial ischemia by CT criteria. Clement-white matter differentiation is preserved. No extra-axial fluid collection is seen. Ventricles, sulci, cisterns: Prominent secondary to involutional change. Intracranial vasculature: There is atherosclerotic calcification of the cavernous carotid and vertebr al arteries. Calvarium: Unremarkable. Sinuses and mastoids: The visualized paranasal sinuses are clear. The mastoid air cells are well pneu matized. Orbits: The bony orbits are grossly intact. IMPRESSION: 1. A 4.2 cm extra-axial mass at the left vertex along the midline falx is typical for a meningioma. T his has mildly increased in size from the 07/14/2021 examination. Localized mass effect/edema is simil ar to previous. 2. There is no hemorrhage or evidence of acute territorial ischemia by CT criteria. 3. Additional findings as above. ACT 112: Negative or not required by law. Electronically signed by: Cesar Davila M.D. 02/05/2023 4:06 PM
--- NOTE | 2023-02-05 16:38 | CT Scan Report ---
CT ANGIOGRAM OF THE CHEST CLINICAL HISTORY: Atypical chest pain. COMPARISON STUDY: Chest x-ray dated 02/05/2023. Chest CT dated 05/19/2019 TECHNIQUE: Following the IV administration of 116 cc of Optiray 320, CT angiogram of the chest was pe rformed from the upper abdomen to the thoracic inlet utilizing the pulmonary embolus protocol. Images are reviewed in the axial, sagittal, and coronal planes. 3-D MIPS images are created and assessed. I V contrast was administered without complication. A dose lowering technique was utilized adhering to the principles of ALARA. CT DOSE: 852.98 mGy.cm FINDINGS: Thyroid: Mildly enlarged and heterogeneous. Thoracic aorta: There is atherosclerotic calcification of the thoracic aorta, which is normal in marilyn sachin and demonstrates standard 3-vessel arch anatomy. No dissection is seen. Pulmonary vasculature: The main pulmonary arteries are dilated suggesting pulmonary artery hypertensi on. There is trace age indeterminate thrombus within a segmental branch of the right upper lobe pulmo nary artery seen on image #222. There is also a nonopacified subsegmental branch of the right lower l obe seen on image #124. No additional filling defects identified in main, lobar, or segmental pulmona ry branches to suggest pulmonary embolus. Heart: The patient is status post midline sternotomy. The heart is enlarged and without pericardial e ffusion. There are coronary artery calcifications. Lungs and pleural spaces: Evaluation of the lung parenchyma is modestly degraded by motion artifact. There is no airspace consolidation or pleural effusion. Foci of parenchymal scarring are seen through out both lungs. The trachea and central airways are clear. A 6 mm right middle lobe nodule on image # 147 is unchanged, as is a 6 mm right upper lobe nodule on image #249. Mediastinum: There is no mediastinal lymphadenopathy. Jenniffer: Clear. Axillae: There is no axillary lymphadenopathy. Upper abdomen: There are least 2 ovoid cystic lesions are seen in the pancreatic tail which measure u p to 2.1 cm. There is mild intrahepatic biliary ductal dilatation. Trace perisplenic fluid is noted. Skeletal structures: The skeletal structures are osteopenic. No lytic or blastic bony lesions are see n. Degenerative change is noted in the shoulders and thoracic spine. IMPRESSION: 1. There is trace age indeterminate thrombus within a branch of the right upper lobe pulmonary artery . This may be chronic. 2. There is also a nonopacified subsegmental branch of the right lower lobe pulmonary artery. This co uld be artifactual. A small distal pulmonary embolus is not excluded. Correlate clinically. 3. The remaining pulmonary vessels are clear. 4. Cardiomegaly with evidence of pulmonary artery hypertension. 5. There is no airspace consolidation or pleural effusion. 6. Scattered subcentimeter pulmonary nodules have not significantly changed as compared to 05/19/2019. 7. 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 8. Additional findings as above. ACT 112: Negative or not required by law. Electronically signed by: Cesar Davila M.D. 02/05/2023 4:37 PM
[2023-02-05] MEDS ORDERED: LORazepam 1 MG TAB SL STA (16:44)
--- NOTE | 2023-02-05 18:30 | History & Physical Report ---
Date of Service February 05, 2023 Assessment & Plan (1) Generalized weakness: (2) Chest pain: Plan This is an 82-year-old female who has a significant past medical history as cerebellar meningioma, chronic thromboembolic pulmonary hypertension, chronic right-sided heart failure, hyperlipidemia, nonrheumatic tricuspid valve regurg, pancreas cyst, osteoarthritis involving multiple joints, polyneuropathy, mood disorder, chronic anticoagulation who presents to ED secondary to generalized weakness and chest pain x1 day. Generalized weakness following suspected viral GI illness Chest pain Admit to med telemetry Initial EKG without ischemic change, troponin negative Cycle troponin additional to time Echocardiogram Doubt ACS, but will rule out May be secondary to recent GI illness Consult PT/OT -patient states that she has had therapy recently come to her home for the past month secondary to a right trochanteric bursitis Gentle IV fluid for additional 1 L Repeat labs in a.m. History of pulmonary embolism History of pulmonary artery embolectomy Chronic thromboembolic pulmonary hypertension Chronic right-sided heart failure Continue warfarin, patient therapeutic Patient recently started on 2.5 mg of torsemide secondary to lower extremity swelling We will place on hold for now in setting of mild dehydration Patient does not appear volume overloaded continue adempas Chest CTA:There is trace age indeterminate thrombus within a branch of the right upper lobe pulmonary artery. This may be chronic.2. There is also a nonopacified subsegmental branch of the right lower lobe pulmonary artery. This could be artifactual. A small distal pulmonary embolus is not excluded. Correlate clinically. 3. The remaining pulmonary vessels are clear.4. Cardiomegaly with evidence of pulmonary artery hypertension. Cerebral meningioma A 4.2 cm extra-axial mass at the left vertex along the midline falx is typical for a meningioma. This has mildly increased in size from the 07/14/2021 exam ination. Localized mass effect/edema is similar to previous. Pt is aware and wishes for no further w/u Pancreatic Cyst pt aware, follows PCP HLD continue statin DVT ppx: warfarin Dispo: med tele, rule out ACS, PT/OT, rehydration, pt independent at home with walker/IADLS/ADLS and still drives DNR/DNI PCP: Kim Nath Pt was seen and examined in collaboration with Dr. Red, please see addendum A total of 75 minutes was spent with greater than 50% of that time personally viewing all current laboratory work and diagnostic imaging studies obtained in the ED. Additionally, I was able to view the patients past medication reconciliation and history with direct visualization in the patients chart. I ncluded in the time above, a portion of that time was spent assessing the patient while discussing and collaborating with specialists, if necessary, and making medical decision making on treatment plan. All of the above was collaborated with Dr. Red. Please see addendum for further details. History of Present Illness Chief Complaint: Generalized weakness and chest pain x1 day. Primary Care Provider: Kim Miles PA-C This is an 82-year-old female who has a significant past medical history as cerebellar meningioma, chronic thromboembolic pulmonary hypertension, chronic right-sided heart failure, hyperlipidemia, nonrheumatic tricuspid valve regurg, pancreas cyst, osteoarthritis involving multiple joints, polyneuropathy, mood disorder, chronic anticoagulation who presents to ED secondary to generalized weakness and chest pain x1 day. Patient states she had a GI illness last week with generalized weakness, myalgias, arthralgias and diarrhea. Her symptoms mostly resolved yesterday yesterday she was in her normal state of health. 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 This is what prompted her to come to the ER. She also complained of headache and just generalized feeling weak. She denies any shortness of breath, palpitations, lightheadedness or dizziness associated with the chest pain. She has never had anything similar in the past. It is not made worse with deep breathing, lying down or sitting forward. Movement does seem to make it worse, but again is not associated with shortness of breath. Overall appetite has still been poor. She has been able to take her medications but has not been eating and drinking much. Approximately 2 weeks ago she was started on torsemide 2.5 mg and potassium chloride. This was secondary to lower extremity swelling which has since resolved. She notes that she does not like taking this medication. In ED patient remained hemodynamically stable. Her CBC and CMP was generally unremarkable except for mild elevated BUN/creatinine ratio. Her urinalysis was negative for infection. Her SARS-CoV-2, influenza and RSV was negative. She received IV Tylenol, 10 mg dexamethasone, IV fluids and 0.25 mg of lorazepam. She overall does feel improved and states, "I just feel numb." Currently she denies any chest pain. Initial troponin was negative. EKG revealed sinus rhythm with PAC and no ischemic like change. Patient lives at home with her sister. She ambulates with a walker and is independent of ADLs and IADLs. She still drives. She states the sister she lives with is not in as good condition, but has family that takes good care of her. Patient also states that she has had in-home PT coming to the house for the past month secondary to bursitis. She had a short course of steroids, cortisone injection and PT and still has had difficulty with the bursitis. Allergies Allergy/AdvReac Type Severity Reaction Status Date / Time nitroglycerin AdvReac Unknown see comment Verified 02/05/23 18:33 Home Medications Medication Instructions Recorded Confirmed Type calcium carb,cit ER 600 mg-vit D3 1 tab PO BID 07/30/19 02/05/23 History 12.5 mcg (500 unit) tablet,ext.rel (Citracal-D3 Slow Release) fluticasone propionate 50 2 spray intranasal QAM 07/30/19 02/05/23 History mcg/actuation nasal spray,suspension multivitamin 1 tab PO QAM 07/30/19 02/05/23 History paroxetine HCl 10 mg tablet 30 mg PO DAILY 07/30/19 02/05/23 History riociguat 2 mg tablet (Adempas) 2 mg PO TID 07/30/19 02/05/23 History simvastatin 20 mg tablet 20 mg PO HS 07/30/19 02/05/23 History warfarin 5 mg tablet 2.5 mg PO MOWEFR@1600 07/30/19 02/05/23 History warfarin 5 mg tablet 5 mg PO SuTuThSa@1600 07/30/19 02/05/23 History ascorbic acid (vitamin C) 500 mg 500 mg PO BID 05/09/21 02/05/23 History tablet (Vitamin C) methylcellulose (with sugar) oral 1 tbsp PO DAILY 05/09/21 02/05/23 History powder (Citrucel (sucrose) oral powder) sodium chloride 0.65 % nasal spray 2 spray intranasal QID PRN Nasal 05/09/21 02/05/23 History aerosol Congestion acetaminophen 500 mg tablet 1,000 mg PO Q6H PRN Pain #0 tabs 05/11/21 02/05/23 Rx (Tylenol Extra Strength) potassium chloride 10 mEq 10 meq PO DAILY 02/05/23 02/05/23 History tablet,extended release(part/cryst) (Klor-Con M) torsemide 5 mg tablet 0.5 mg PO DAILY 02/05/23 02/05/23 History Past Med/Surg History Medical History (Updated 02/05/23 @ 19:47 by Chava Arroyo MD) Anxiety Diverticular disease of colon Dyslipidemia History of anesthesia reaction was instructed after embolectomy to never have "heavy anesthesia because I may not wake up or I would end up on a ventilator" History of colonic diverticulitis History of pulmonary embolism per pt d/t not being active? Pulmonary nodule "RUL 6 mm, CT 06/14/17 and 05/09/18." Surgical History History of bilateral cataract extraction History of cardiac cath x3--last 2014--no stents---follows with Dr. Abbott History of colonoscopy History of embolectomy 2003 "for pulmonary embolism" @ [facility] History of esophagogastroduodenoscopy (EGD) History of hemorrhoidectomy History of tonsillectomy History of tooth extraction History of vascular access device "Krueger cath, removed"--per pt was in for 11 years Status post appendectomy Status post cholecystectomy Status post insertion of inferior vena caval filter марина filter Family History Father Family hx of colon cancer Other Family history non-contributory No family history of adverse response to anesthesia Social History Smoking Status: Never smoker Second Hand Exposure: Yes; Hx Alcohol Use: No Hx Substance Use: No Preferred Language: Fijian Communication Ability: Effective [employer] Superintendent Required: No Beliefs That Will Affect Care: None Current Living Situation: Alone Feels Safe at Home: Yes Assistive Devices: None Review of Systems Review of Systems: All systems reviewed & are unremarkable except as noted in HPI & below Physical Exam Physical Exam: Constitutional: WD/WN, elderly f, vitals as above, NAD, sitting up in bed, pleasant, conversing easily Head: Normocephalic, Atraumatic Eyes: PERRL, conjunctivae normal, anicteric sclerae ENMT: external ear and nose normal, oropharynx normal dry membranes Neck: trachea midline, no thyromegaly normal visual inspection Respiratory: normal respiratory effort, lungs clear to auscultation, no wheeze, rales, rhonchi. Normal insp/exp effort, no accessory muscle use Cardiovascular: RRR, occassional ectopy no murmur, no edema Vessels: no JVD or carotid bruit Chest: normal inspection of chest, no pain to palpation Abdomen: normal bowel sounds, soft, nontender, no hepatosplenomegaly Musculoskeletal: no cyanosis or clubbing, extremities motor strength 5/5 Skin: no rashes, warm and dry normal turgor Neurologic: PERRL, EOMI, accommodation nl, no face palsy, no dysarthria CN's II-XI intact bilaterally and moves all extremities Psychiatric: A+Ox3, euthymic affect Lymphatic: no cervical or axillary lymphadenopathy : deferred Results & Data Results & Data Vital Signs (Past 12 Hours) Vital Signs Temp Pulse Pulse Resp BP BP Pulse Ox 02/05/23 17:00 79 20 128/73 92 02/05/23 16:24 77 02/05/23 14:28 71 18 118/69 96 02/05/23 12:50 99 02/05/23 12:39 36.8 C 79 18 136/93 99 02/05/23 12:39 36.8 C 79 18 136/93 99 02/05/23 12:33 78 O2 Del Method 02/05/23 17:00 Room Air 02/05/23 16:24 02/05/23 14:28 Room Air 02/05/23 12:50 Room Air 02/05/23 12:39 Room Air 02/05/23 12:39 Room Air 02/05/23 12:33 Diagnostic Findings Chest X-Ray 02/05/23 12:49 SINGLE VIEW CHEST CLINICAL HISTORY: Atypical chest pain. FINDINGS: 2 AP, portable, upright chest radiographs are compared to study dated 07/30/2019 and correlated with chest CT dated 05/19/2019. The examination is degraded by portable technique and patient rotation. The patient is status post midline sternotomy. The heart is enlarged. The pulmonary vasculature is noncongested. Enlargement of the central pulmonary arteries suggests pulmonary hypertension. Chronic interstitial thickening is similar to previous. There is bibasilar scarring/atelectasis. No airspace consolidation or large pleural effusion is identified. No pneumothorax is seen. The skeletal structures are osteopenic. The bony thorax is grossly intact. IMPRESSION: Cardiomegaly with no acute cardiopulmonary abnormality identified. ACT 112: Negative or not required by law. Electronically signed by: Cesar Davila M.D. 02/05/2023 1:[address] 02/05/23 14:27 CT SCAN OF THE BRAIN WITHOUT IV CONTRAST CLINICAL HISTORY: Headache. COMPARISON STUDY: CT of the brain dated 07/14/2021. TECHNIQUE: Unenhanced axial CT scan of the brain is performed from the vertex to the skull base. A dose lowering technique was utilized adhering to the principles of ALARA. FINDINGS: Brain parenchyma: A 4.2 x 3.4 cm extra-axial mass at the left vertex along the falx has modestly increased in size from previous. There is mild localized mass effect and minimal focal left to right midline shift. There is age-related involutional change noting mild to moderate subcortical and periventricular microangiopathic disease. There is no hemorrhage or evidence of acute territorial ischemia by CT criteria. Clement-white matter differentiation is preserved. No extra-axial fluid collection is seen. Ventricles, sulci, cisterns: Prominent secondary to involutional change. Intracranial vasculature: There is atherosclerotic calcification of the cavernous carotid and vertebral arteries. Calvarium: Unremarkable. Sinuses and mastoids: The visualized paranasal sinuses are clear. The mastoid air cells are well pneumatized. Orbits: The bony orbits are grossly intact. IMPRESSION: 1. A 4.2 cm extra-axial mass at the left vertex along the midline falx is typical for a meningioma. This has mildly increased in size from the 07/14/2021 examination. Localized mass effect/edema is similar to previous. 2. There is no hemorrhage or evidence of acute territorial ischemia by CT criteria. 3. Additional findings as above. ACT 112: Negative or not required by law. Electronically signed by: Cesar Davila M.D. 02/05/2023 4:06 PM Chest CTA 02/05/23 14:28 CT ANGIOGRAM OF THE CHEST CLINICAL HISTORY: Atypical chest pain. COMPARISON STUDY: Chest x-ray dated 02/05/2023. Chest CT dated 05/19/2019 TECHNIQUE: Following the IV administration of 116 cc of Optiray 320, CT angiogram of the chest was performed from the upper abdomen to the thoracic inlet utilizing the pulmonary embolus protocol. Images are reviewed in the axial, sagittal, and coronal planes. 3-D MIPS images are created and assessed. IV contrast was administered without complication. A dose lowering technique was utilized adhering to the principles of ALARA. CT DOSE: 852.98 mGy.cm FINDINGS: Thyroid: Mildly enlarged and heterogeneous. Thoracic aorta: There is atherosclerotic calcification of the thoracic aorta, which is normal in caliber and demonstrates standard 3-vessel arch anatomy. No dissection is seen. Pulmonary vasculature: The main pulmonary arteries are dilated suggesting pulmonary artery hypertension. There is trace age indeterminate thrombus within a segmental branch of the right upper lobe pulmonary artery seen on image #222. There is also a nonopacified subsegmental branch of the right lower lobe seen on image #124. No additional filling defects identified in main, lobar, or segmental pulmonary branches to suggest pulmonary embolus. Heart: The patient is status post midline sternotomy. The heart is enlarged and without pericardial effusion. There are coronary artery calcifications. Lungs and pleural spaces: Evaluation of the lung parenchyma is modestly degraded by motion artifact. There is no airspace consolidation or pleural effusion. Foci of parenchymal scarring are seen throughout both lungs. The trachea and central airways are clear. A 6 mm right middle lobe nodule on image #147 is unchanged, as is a 6 mm right upper lobe nodule on image #249. Mediastinum: There is no mediastinal lymphadenopathy. Jenniffer: Clear. Axillae: There is no axillary lymphadenopathy. Upper abdomen: There are least 2 ovoid cystic lesions are seen in the pancreatic tail which measure up to 2.1 cm. There is mild intrahepatic biliary ductal dilatation. Trace perisplenic fluid is noted. Skeletal structures: The skeletal structures are osteopenic. No lytic or blastic bony lesions are seen. Degenerative change is noted in the shoulders and thoracic spine. IMPRESSION: 1. There is trace age indeterminate thrombus within a branch of the right upper lobe pulmonary artery. This may be chronic. 2. There is also a nonopacified subsegmental branch of the right lower lobe pulmonary artery. This could be artifactual. A small distal pulmonary embolus is not excluded. Correlate clinically. 3. The remaining pulmonary vessels are clear. 4. Cardiomegaly with evidence of pulmonary artery hypertension. 5. There is no airspace consolidation or pleural effusion. 6. Scattered subcentimeter pulmonary nodules have not significantly changed as compared to 05/19/2019. 7. 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 8. Additional findings as above. ACT 112: Negative or not required by law. Electronically signed by: Cesar Davila M.D. 02/05/2023 4:37 PM Medications Administered Medication List Discontinued Medications Dexamethasone Sodium Phosphate (DexamethasonePf 10 Mg/Ml Vial) 10 mg IV NOW ONE Stop: 02/05/23 14:30 Last Admin: 02/05/23 14:58 Dose: 10 mg Documented By: SESAR Sodium Chloride (Nss) 500 mls @ 999 mls/hr IV .Q31M ONE Stop: 02/05/23 13:19 Last Infusion: 02/05/23 14:21 Dose: 0 mls/hr Documented By: Admin: 02/05/23 13:49 Dose: 999 mls/hr Documented By: SESAR Acetaminophen (Ofirmev) 1,000 mg in 100 mls @ 400 mls/hr IV NOW STA Stop: 02/05/23 14:43 Last Infusion: 02/05/23 15:35 Dose: 0 mls/hr Documented By: Admin: 02/05/23 14:59 Dose: 400 mls/hr Documented By: SESAR Sodium Chloride (Nss) 500 mls @ 999 mls/hr IV .Q31M ONE Stop: 02/05/23 15:00 Last Infusion: 02/05/23 15:35 Dose: 0 mls/hr Documented By: Admin: 02/05/23 14:59 Dose: 999 mls/hr Documented By: SESAR Ioversol (Optiray 320 500ml) 116 ml IV ONCE ONE Stop: 02/05/23 15:36 Last Admin: 02/05/23 15:36 Dose: 116 ml Documented By: DONITA Lorazepam (Lorazepam 1 Mg Tab) 0.25 mg SL NOW STA Stop: 02/05/23 16:45 Last Admin: 02/05/23 16:54 Dose: 0.25 mg Documented By: SESAR ECG Rate (beats per minute): 83 Rhythm: normal sinus Additional Comments: Occasional PAC, prolonged QT 477 MS, no significant change compared to EKG on July 14, 2021 COVID-19 Results Results COVID-19 Adm Lab Results: RBC 4.43 M/uL (4.20-5.40) 02/05/23 WBC 5.18 K/ul (4.8-10.8) 02/05/23 Hgb 14.2 g/dl (12.0-16.0) 02/05/23 Hct 41.2 % (37.0-47.0) 02/05/23 Plt Count 277 K/uL (130-400) 02/05/23 Neutrophils (%) (Auto) 50.1 % 02/05/23 Lymphocytes (%) (Auto) 39.2 % 02/05/23 Monocytes # (Auto) 0.42 K/uL (0.11-0.59) 02/05/23 Eosinophils # (Auto) 0.07 K/uL (0-0.50) 02/05/23 Immature Granulocyte % (Auto) 0.2 % 02/05/23 Neutrophils # (Auto) 2.60 K/uL (1.40-6.50) 02/05/23 Lymphocytes # (Auto) 2.03 K/uL (1.2-3.4) 02/05/23 Monocytes # (Auto) 0.42 K/uL (0.11-0.59) 02/05/23 Eosinophils # (Auto) 0.07 K/uL (0-0.50) 02/05/23 Basophils # (Auto) 0.05 K/uL (0-0.2) 02/05/23 Immature Granulocyte # (Auto) 0.01 K/uL (0.01-0.20) 3 Na 140 mmol/L (136-145) 02/05/23 K 3.8 mmol/L (3.5-5.1) 02/05/23 Cl 104 mmol/L (98-107) 02/05/23 CO2 26 mmol/L (21-32) 02/05/23 Anion Gap 10 (3-11) 02/05/23 BUN 14 mg/dl (6-23) 02/05/23 Creatinine 0.66 mg/dl (0.6-1.2) 02/05/23 BUN/Creatinine Ratio 21.2 (10-20) H 02/05/23 Glucose Level 93 mg/dl (70-99(Fasting)) 02/05/23 Ca 9.8 mg/dl (8.6-10.3) 02/05/23 Phosphorus Level 3.2 mg/dl (2.5-4.9) 02/05/23 Total Bilirubin 0.8 mg/dl (0.2-1.0) 02/05/23 AST/SGOT 17 U/L (13-39) 02/05/23 ALT/SGPT 11 U/L (7-52) 02/05/23 Alkaline Phosphatase 55 U/L (34-104) 02/05/23 Total Protein 7.5 gm/dl (6.0-8.3) 02/05/23 Albumin 4.6 gm/dl (3.4-5.0) 02/05/23 Globulin 2.9 gm/dl (2.5-4.0) 02/05/23 Albumin/Globulin Ratio 1.6 (0.9-2) 02/05/23 INR 2.2 (0.9-1.1) H 02/05/23 COVID-19 PCR NEGATIVE (Negative) 02/05/23 Influenza Virus Type A (PCR) Negative (Neg) 02/05/23 Influenza Virus Type B (PCR) Negative (Neg) 02/05/23 Chest X-Ray 02/05/23 Code Status & VTE Plan Code Status DNR/DNI VTE Prophylaxis Plan VTE Prophylaxis will be ordered: No Reason for no VTE drug order: Treatment not indicated Supervising Physician Co-Signing Physician Notes 82-year-old lady with PMH of cerebellar meningioma, chronic thromboembolic PE and associated pulmonary hypertension, chronic right-sided heart failure, HLD who also had recent diarrheal illness presented to the ED secondary to generalized weakness and chest pain for 1 day. Admitting labs WNL, troponin WNL, CXR with no acute finding. CTA chest with chronic PE. CT head with stable meningioma finding. We will trend troponin, get echo, consider cardiology consult if with uptrending troponin. PT/OT. On examination: GENERAL: Alert and oriented x3. NAD, on RA. HEENT: No pallor, no icterus. Pupils equal, round and reactive to light. Oral mucosa moist. NECK: No JVD, no neck masses. HEART: S1 and S2 heard. Regular rate and rhythm. No murmur, no gallop. RESPIRATORY SYSTEM: Normal AP diameter. No accessory muscle use. No wheezing, no crackles. ABDOMEN: Soft, bowel sounds present, nontender, no distention. CENTRAL NERVOUS SYSTEM: No facial droop. Speech is clear. Obeys simple commands. Moves extremities. EXTREMITIES: No edema, no erythema seen. I have seen and examined the patient and have discussed the case with the provider above. I agree with the assessment and plan as stated.
--- NOTE | 2023-02-05 19:47 | Emergency Department Note ---
Impression & Plan Generalized weakness, Atypical chest pain, Generalized pain, Paresthesia, History of cerebral meningioma ED Provider Note NAME: JULISSA WHITEHEAD AGE: 82 SEX: F ARRIVES VIA: Ambulance INFORMANT: Patient ED PROVIDER(S): Chava Arroyo MD CHIEF COMPLAINT: chest pain, headache, nausea, numbness and tingling. PLAN: Disposition: Admit MEDICAL DECISION MAKING: The patient is a pleasant 82-year-old woman with a past medical history of PE on warfarin, history of inferior vena cava filter, history of meningioma for which she did not want surgical intervention, ambulatory dysfunction, anxiety, hypertension, hyperlipidemia who presents to the emergency department via EMS from home for evaluation of numerous symptoms including chest pain, headache, nausea, lightheadedness, generalized body aches, fluctuating numbness and tingling of all extremities which she reports initially began last night around midnight. She reports she developed mild cough congestion and nausea with poor oral intake last week. She reports she had to cancel her home physical therapy which had been arranged for bursitis of her right hip. On arrival to the emergency department the patient is anxious appearing but no acute distress, afebrile stable vital signs. She appears clinically dry. She has no focal neurologic deficits. EKG without overt acute ischemia. CXR negative for acute cardiopulmonary process. WBC, H/H and platelets within normal limits. INR 2.2, therapeutic. Chemistry without metabolic acidosis. BUN/creatinine> 20 consistent with the patient's clinically dry appearance. High-sensitivity troponin 5.8, within normal limits. Lipase not elevated. UA without convincing evidence of infection. Covid-19 PCR negative. Influenza and RSV PCR negative. CT head demonstrates mild increase in size of prior meningioma with unchanged vasogenic edema. CTA of the chest demonstrates suspected chronic pulmonary emboli given the patient's history. Upon reevaluation the patient did report feeling some improvement after IV fluid hydration, APAP, dexamethasone and oral Ativan. However, given her symptoms she did agree with plan for admission for further management and possible PT OT and placement. We did review her meningioma findings and she confirmed as she did in 2019 per records that she would never want any surgical intervention for this. Case was discussed with Magui Jiménez PAC with Dr. Red, [facility] hospitalist, who will evaluate the patient for admission. Triage Nursing notes reviewed and agree them. Prior/outside medical records reviewed Vital Signs: reviewed Differential diagnosis: Cardiac ischemia, aortic dissection, pulmonary embolism, pneumothorax, pneumonia, pericarditis, myocarditis, esophageal rupture, GERD, cholecystitis, pancreatitis, musculoskeletal, as well as other pathologies. ER treatment provided: See below. Diagnostics interpreted by me: ECG: Sinus rhythm with PSVT's with occasional PVCs, 92 bpm, nonspecific ST and T wave abnormality, no overt ST elevation or depression, QTc 462, QRS 88 Cardiac Monitoring: An order for continuous cardiac monitoring was placed and demonstrated Sinus rhythm with PSVT's with occasional PVCs, 92 bpm. Laboratory studies: See below Imaging studies: See below Consultation(s): [facility] with Dr. Red, [facility] hospitalist, who will evaluate the patient for admission. HPI: The patient is a pleasant 82-year-old woman with a past medical history of PE on warfarin, history of inferior vena cava filter, history of meningioma for which she did not want surgical intervention, ambulatory dysfunction, anxiety, hypertension, hyperlipidemia who presents to the emergency department via EMS from home for evaluation of numerous symptoms including chest pain, headache, nausea, lightheadedness, generalized body aches, fluctuating numbness and tingling of all extremities which she reports initially began last night around midnight. She reports she developed mild cough congestion and nausea with poor oral intake last week. She reports she had to cancel her home physical therapy which had been arranged for bursitis of her right hip. ROS: See above HPI for pertinent positives & negatives. A total of 10 systems reviewed and were otherwise negative. VITALS:See Below PHYSICAL EXAMINATION: GENERAL: Awake, alert, anxious-appearing, in no distress HENT: Normocephalic, atraumatic. Oropharynx with dry mucous membranes and otherwise unremarkable. EYES: Normal conjunctiva. Sclera non-icteric. EOMI. No nystamgus. PEARRL. NECK: Supple. No nuchal rigidity. FROM. No JVD. RESPIRATORY: Clear to auscultation. CARDIAC: Regular rate, normal rhythm. Extremities warm and well perfused. Pulses equal. ABDOMEN: Soft, non-distended. No tenderness to palpation. No rebound or guarding. No masses. RECTAL: Deferred. MUSCULOSKELETAL: Chest examination reveals no tenderness. The back is symmetrical on inspection without obvious abnormality. There is no CVA tenderness to palpation. No joint edema. LOWER EXTREMITIES: Calves are equal size bilaterally and non-tender. No edema. No discoloration. NEURO: No focal sensory or motor deficits noted. SKIN: No rash or jaundice noted. Chava Arroyo MD Past Med/Surg History Medical History (Updated 02/05/23 @ 19:47 by Chava Arroyo MD) Anxiety Diverticular disease of colon Dyslipidemia History of anesthesia reaction was instructed after embolectomy to never have "heavy anesthesia because I may not wake up or I would end up on a ventilator" History of colonic diverticulitis History of pulmonary embolism per pt d/t not being active? Pulmonary nodule "RUL 6 mm, CT 06/14/17 and 05/09/18." Surgical History History of bilateral cataract extraction History of cardiac cath x3--last 2014--no stents---follows with Dr. Abbott History of colonoscopy History of embolectomy 2003 "for pulmonary embolism" @ [place] History of esophagogastroduodenoscopy (EGD) History of hemorrhoidectomy History of tonsillectomy History of tooth extraction History of vascular access device "Krueger cath, removed"--per pt was in for 11 years Status post appendectomy Status post cholecystectomy Status post insertion of inferior vena caval filter марина filter Family History Father Family hx of colon cancer Other Family history non-contributory No family history of adverse response to anesthesia Social History Smoking Status: Never smoker Second Hand Exposure: Yes; Hx Alcohol Use: No Hx Substance Use: No Preferred Language: Bahraini Communication Ability: Effective Supervisor Finishing Required: No Beliefs That Will Affect Care: None Current Living Situation: Alone Feels Safe at Home: Yes Assistive Devices: None Allergies Allergies Allergy/AdvReac Type Severity Reaction Status Date / Time nitroglycerin AdvReac Unknown see comment Verified 02/05/23 18:33 Home Meds Home Medications Medication Instructions Recorded Confirmed calcium carb,cit ER 600 mg-vit D3 1 tab PO BID 07/30/19 02/05/23 12.5 mcg (500 unit) tablet,ext.rel (Citracal-D3 Slow Release) fluticasone propionate 50 2 spray intranasal QAM 07/30/19 02/05/23 mcg/actuation nasal spray,suspension multivitamin 1 tab PO QAM 07/30/19 02/05/23 paroxetine HCl 10 mg tablet 30 mg PO DAILY 07/30/19 02/05/23 riociguat 2 mg tablet (Adempas) 2 mg PO TID 07/30/19 02/05/23 simvastatin 20 mg tablet 20 mg PO HS 07/30/19 02/05/23 warfarin 5 mg tablet 2.5 mg PO MOWEFR@1600 07/30/19 02/05/23 warfarin 5 mg tablet 5 mg PO SuTuThSa@1600 07/30/19 02/05/23 ascorbic acid (vitamin C) 500 mg 500 mg PO BID 05/09/21 02/05/23 tablet (Vitamin C) methylcellulose (with sugar) oral 1 tbsp PO DAILY 05/09/21 02/05/23 powder (Citrucel (sucrose) oral powder) sodium chloride 0.65 % nasal spray 2 spray intranasal QID PRN Nasal 05/09/21 02/05/23 aerosol Congestion potassium chloride 10 mEq 10 meq PO DAILY 02/05/23 02/05/23 tablet,extended release(part/cryst) (Klor-Con M) torsemide 5 mg tablet 0.5 mg PO DAILY 02/05/23 02/05/23 Previous Rx's Medication Instructions Recorded acetaminophen 500 mg tablet 1,000 mg PO Q6H PRN Pain #0 tabs 05/11/21 (Tylenol Extra Strength) Results & Data (ED) Vital Signs Vital Signs - 24 hr 02/05/23 12:33 02/05/23 12:39 02/05/23 12:39 Temperature 36.8 C 36.8 C Temperature Source Oral Oral Pulse Rate 78 79 Pulse Rate [Apical] 79 Pulse Rhythm [Apical] Regular Respiratory Rate 18 18 Respiratory Effort / Characteristics Non-Labored Spontaneous Non-Labored Spontaneous Respiratory Depth Normal Normal Respiratory Pattern Regular Regular Blood Pressure 136/93 Blood Pressure [Right Arm] 136/93 Blood Pressure Mean 107 Blood Pressure Mean [Right Arm] 107 Blood Pressure Position Lying Blood Pressure Position [Right Arm] Lying Pulse Oximetry 99 99 Oxygen Delivery Method Room Air Room Air Sepsis Recent Fever Within 48 Hours No Sepsis New/Unexplained Change in Mental Status No Sepsis Action Taken by Nursing No Action Required 02/05/23 12:50 02/05/23 14:28 02/05/23 16:24 Temperature Temperature Source Pulse Rate 77 Pulse Rate [Apical] 71 Pulse Rhythm [Apical] Regular Respiratory Rate 18 Respiratory Effort / Characteristics Non-Labored Spontaneous Respiratory Depth Normal Respiratory Pattern Regular Blood Pressure Blood Pressure [Right Arm] 118/69 Blood Pressure Mean Blood Pressure Mean [Right Arm] 85 Blood Pressure Position Blood Pressure Position [Right Arm] Lying Pulse Oximetry 99 96 Oxygen Delivery Method Room Air Room Air Sepsis Recent Fever Within 48 Hours Sepsis New/Unexplained Change in Mental Status Sepsis Action Taken by Nursing 02/05/23 17:00 02/05/23 19:34 Temperature Temperature Source Pulse Rate Pulse Rate [Apical] 79 83 Pulse Rhythm [Apical] Respiratory Rate 20 16 Respiratory Effort / Characteristics Respiratory Depth Respiratory Pattern Blood Pressure Blood Pressure [Right Arm] 128/73 130/73 Blood Pressure Mean Blood Pressure Mean [Right Arm] 91 92 Blood Pressure Position Blood Pressure Position [Right Arm] Pulse Oximetry 92 94 Oxygen Delivery Method Room Air Room Air Sepsis Recent Fever Within 48 Hours Sepsis New/Unexplained Change in Mental Status Sepsis Action Taken by Nursing Laboratory Data Attestation: I reviewed the patient's lab results. 02/05/23 12:35 02/05/23 12:35 Lab Results 02/05/23 02/05/23 02/05/23 Range/Units 12:35 12:35 12:35 WBC 5.18 (4.8-10.8) K/ul RBC 4.43 (4.20-5.40) M/uL Hgb 14.2 (12.0-16.0) g/dl Hct 41.2 (37.0-47.0) % MCV 93.0 (80.0-100.0) fL MCH 32.1 (25.0-34.0) pg MCHC 34.5 (32.0-36.0) g/dL RDW Std Deviation 43.8 (36.4-46.3) fL RDW Coeff of Susan 12.7 (11.5-14.5) % Plt Count 277 (130-400) K/uL MPV 10.6 (9.4-12.4) fL Immature Gran % (Auto) 0.2 % Neut % (Auto) 50.1 % Lymph % (Auto) 39.2 % Canadian % (Auto) 8.1 % Eos % (Auto) 1.4 % Baso % (Auto) 1.0 % Neut # (Auto) 2.60 (1.40-6.50) K/uL Lymph # (Auto) 2.03 (1.2-3.4) K/uL Canadian # (Auto) 0.42 (0.11-0.59) K/uL Eos # (Auto) 0.07 (0-0.50) K/uL Baso # (Auto) 0.05 (0-0.2) K/uL Immature Gran # (Auto) 0.01 (0.01-0.20) K/uL PT 22.0 H (9.0-12.0) Seconds INR 2.2 H (0.9-1.1) Sodium 140 (136-145) mmol/L Potassium 3.8 (3.5-5.1) mmol/L Chloride 104 (98-107) mmol/L Carbon Dioxide 26 (21-32) mmol/L Anion Gap 10 (3-11) BUN 14 (6-23) mg/dl Creatinine 0.66 (0.6-1.2) mg/dl Est Cr Clr Drug Dosing 69.9 ml/min Est GFR ( Amer) 96.0 ml/min Est GFR (Non-Af Amer) 82.8 ml/min BUN/Creatinine Ratio 21.2 H (10-20) Glucose 93 (70-99(Fasting)) mg/dl Calcium 9.8 (8.6-10.3) mg/dl Phosphorus 3.2 (2.5-4.9) mg/dl Magnesium 2.0 (1.7-2.4) mg/dl Total Bilirubin 0.8 (0.2-1.0) mg/dl AST 17 (13-39) U/L ALT 11 (7-52) U/L Alkaline Phosphatase 55 (34-104) U/L Troponin I High Sens 5.8 (0-14) pg/ml Total Protein 7.5 (6.0-8.3) gm/dl Albumin 4.6 (3.4-5.0) gm/dl Globulin 2.9 (2.5-4.0) gm/dl Albumin/Globulin Ratio 1.6 (0.9-2) Lipase 65 (11-82) U/L Urine Color Urine Appearance (Clear) Urine pH (4.5-7.5) Ur Specific Burchard (1.000-1.030) Urine Protein (Negative) Urine Glucose (UA) (Negative) Urine Ketones (Negative) Urine Blood (Negative) Urine Nitrite (Negative) Urine Bilirubin (Negative) Urine Urobilinogen (Negative) Ur Leukocyte Esterase (Negative) SARS-CoV-2 (PCR) (Negative) Influenza Type A (PCR) (Neg) Influenza Type B (PCR) (Neg) RSV (RT-PCR) (Neg) 02/05/23 02/05/23 Range/Units 14:03 15:05 WBC (4.8-10.8) K/ul RBC (4.20-5.40) M/uL Hgb (12.0-16.0) g/dl Hct (37.0-47.0) % MCV (80.0-100.0) fL MCH (25.0-34.0) pg MCHC (32.0-36.0) g/dL RDW Std Deviation (36.4-46.3) fL RDW Coeff of Susan (11.5-14.5) % Plt Count (130-400) K/uL MPV (9.4-12.4) fL Immature Gran % (Auto) % Neut % (Auto) % Lymph % (Auto) % Canadian % (Auto) % Eos % (Auto) % Baso % (Auto) % Neut # (Auto) (1.40-6.50) K/uL Lymph # (Auto) (1.2-3.4) K/uL Canadian # (Auto) (0.11-0.59) K/uL Eos # (Auto) (0-0.50) K/uL Baso # (Auto) (0-0.2) K/uL Immature Gran # (Auto) (0.01-0.20) K/uL PT (9.0-12.0) Seconds INR (0.9-1.1) Sodium (136-145) mmol/L Potassium (3.5-5.1) mmol/L Chloride (98-107) mmol/L Carbon Dioxide (21-32) mmol/L Anion Gap (3-11) BUN (6-23) mg/dl Creatinine (0.6-1.2) mg/dl Est Cr Clr Drug Dosing ml/min Est GFR ( Amer) ml/min Est GFR (Non-Af Amer) ml/min BUN/Creatinine Ratio (10-20) Glucose (70-99(Fasting)) mg/dl Calcium (8.6-10.3) mg/dl Phosphorus (2.5-4.9) mg/dl Magnesium (1.7-2.4) mg/dl Total Bilirubin (0.2-1.0) mg/dl AST (13-39) U/L ALT (7-52) U/L Alkaline Phosphatase (34-104) U/L Troponin I High Sens (0-14) pg/ml Total Protein (6.0-8.3) gm/dl Albumin (3.4-5.0) gm/dl Globulin (2.5-4.0) gm/dl Albumin/Globulin Ratio (0.9-2) Lipase (11-82) U/L Urine Color Yellow Urine Appearance Clear (Clear) Urine pH 8.5 H (4.5-7.5) Ur Specific Burchard 1.009 (1.000-1.030) Urine Protein Negative (Negative) Urine Glucose (UA) Negative (Negative) Urine Ketones Negative (Negative) Urine Blood Negative (Negative) Urine Nitrite Negative (Negative) Urine Bilirubin Negative (Negative) Urine Urobilinogen Negative (Negative) Ur Leukocyte Esterase Negative (Negative) SARS-CoV-2 (PCR) NEGATIVE (Negative) Influenza Type A (PCR) Negative (Neg) Influenza Type B (PCR) Negative (Neg) RSV (RT-PCR) Negative (Neg) Administered Medications Discontinued Medications Dexamethasone Sodium Phosphate (DexamethasonePf 10 Mg/Ml Vial) 10 mg IV NOW ONE Stop: 02/05/23 14:30 Last Admin: 02/05/23 14:58 Dose: 10 mg Documented By: SESAR Sodium Chloride (Nss) 500 mls @ 999 mls/hr IV .Q31M ONE Stop: 02/05/23 13:19 Last Infusion: 02/05/23 14:21 Dose: 0 mls/hr Documented By: Admin: 02/05/23 13:49 Dose: 999 mls/hr Documented By: SESAR Acetaminophen (Ofirmev) 1,000 mg in 100 mls @ 400 mls/hr IV NOW STA Stop: 02/05/23 14:43 Last Infusion: 02/05/23 15:35 Dose: 0 mls/hr Documented By: Admin: 02/05/23 14:59 Dose: 400 mls/hr Documented By: SESAR Sodium Chloride (Nss) 500 mls @ 999 mls/hr IV .Q31M ONE Stop: 02/05/23 15:00 Last Infusion: 02/05/23 15:35 Dose: 0 mls/hr Documented By: Admin: 02/05/23 14:59 Dose: 999 mls/hr Documented By: SESAR Ioversol (Optiray 320 500ml) 116 ml IV ONCE ONE Stop: 02/05/23 15:36 Last Admin: 02/05/23 15:36 Dose: 116 ml Documented By: DONITA Lorazepam (Lorazepam 1 Mg Tab) 0.25 mg SL NOW STA Stop: 02/05/23 16:45 Last Admin: 02/05/23 16:54 Dose: 0.25 mg Documented By: SESAR Imaging Data Radiologist's Impression: Chest X-Ray 02/05/23 12:49 SINGLE VIEW CHEST CLINICAL HISTORY: Atypical chest pain. FINDINGS: 2 AP, portable, upright chest radiographs are compared to study dated 07/30/2019 and correlated with chest CT dated 05/19/2019. The examination is degraded by portable technique and patient rotation. The patient is status post midline sternotomy. The heart is enlarged. The pulmonary vasculature is noncongested. Enlargement of the central pulmonary arteries suggests pulmonary hypertension. Chronic interstitial thickening is similar to previous. There is bibasilar scarring/atelectasis. No airspace consolidation or large pleural effusion is identified. No pneumothorax is seen. The skeletal structures are osteopenic. The bony thorax is grossly intact. IMPRESSION: Cardiomegaly with no acute cardiopulmonary abnormality identified. ACT 112: Negative or not required by law. Electronically signed by: Cesar Davila M.D. 02/05/2023 1:[address] 02/05/23 14:27 CT SCAN OF THE BRAIN WITHOUT IV CONTRAST CLINICAL HISTORY: Headache. COMPARISON STUDY: CT of the brain dated 07/14/2021. TECHNIQUE: Unenhanced axial CT scan of the brain is performed from the vertex to the skull base. A dose lowering technique was utilized adhering to the p rinciples of ALA. FINDINGS: Brain parenchyma: A 4.2 x 3.4 cm extra-axial mass at the left vertex along the falx has modestly increased in size from previous. There is mild localized mass effect and minimal focal left to right midline shift. There is age-related involutional change noting mild to moderate subcortical and periventricular microangiopathic disease. There is no hemorrhage or evidence of acute territorial ischemia by CT criteria. Clement-white matter differentiation is preserved. No extra-axial fluid collection is seen. Ventricles, sulci, cisterns: Prominent secondary to involutional change. Intracranial vasculature: There is atherosclerotic calcification of the cavernous carotid and vertebral arteries. Calvarium: Unremarkable. Sinuses and mastoids: The visualized paranasal sinuses are clear. The mastoid air cells are well pneumatized. Orbits: The bony orbits are grossly intact. IMPRESSION: 1. A 4.2 cm extra-axial mass at the left vertex along the midline falx is typical for a meningioma. This has mildly increased in size from the 07/14/2021 examination. Localized mass effect/edema is similar to previous. 2. There is no hemorrhage or evidence of acute territorial ischemia by CT criteria. 3. Additional findings as above. ACT 112: Negative or not required by law. Electronically signed by: Cesar Davila M.D. 02/05/2023 4:06 PM Chest CTA 02/05/23 14:28 CT ANGIOGRAM OF THE CHEST CLINICAL HISTORY: Atypical chest pain. COMPARISON STUDY: Chest x-ray dated 02/05/2023. Chest CT dated 05/19/2019 TECHNIQUE: Following the IV administration of 116 cc of Optiray 320, CT angiogram of the chest was performed from the upper abdomen to the thoracic inlet utilizing the pulmonary embolus protocol. Images are reviewed in the axial, sagittal, and coronal planes. 3-D MIPS images are created and assessed. IV contrast was administered without complication. A dose lowering technique was utilized adhering to the principles of ALARA. CT DOSE: 852.98 mGy.cm FINDINGS: Thyroid: Mildly enlarged and heterogeneous. Thoracic aorta: There is atherosclerotic calcification of the thoracic aorta, which is normal in caliber and demonstrates standard 3-vessel arch anatomy. No dissection is seen. Pulmonary vasculature: The main pulmonary arteries are dilated suggesting pulmonary artery hypertension. There is trace age indeterminate thrombus within a segmental branch of the right upper lobe pulmonary artery seen on image #222. There is also a nonopacified subsegmental branch of the right lower lobe seen on image #124. No additional filling defects identified in main, lobar, or segmental pulmonary branches to suggest pulmonary embolus. Heart: The patient is status post midline sternotomy. The heart is enlarged and without pericardial effusion. There are coronary artery calcifications. Lungs and pleural spaces: Evaluation of the lung parenchyma is modestly degraded by motion artifact. There is no airspace consolidation or pleural effusion. Foci of parenchymal scarring are seen throughout both lungs. The trachea and central airways are clear. A 6 mm right middle lobe nodule on image #147 is unchanged, as is a 6 mm right upper lobe nodule on image #249. Mediastinum: There is no mediastinal lymphadenopathy. Jenniffer: Clear. Axillae: There is no axillary lymphadenopathy. Upper abdomen: There are least 2 ovoid cystic lesions are seen in the pancreatic tail which measure up to 2.1 cm. There is mild intrahepatic biliary ductal dilatation. Trace perisplenic fluid is noted. Skeletal structures: The skeletal structures are osteopenic. No lytic or blastic bony lesions are seen. Degenerative change is noted in the shoulders and thoracic spine. IMPRESSION: 1. There is trace age indeterminate thrombus within a branch of the right upper lobe pulmonary artery. This may be chronic. 2. There is also a nonopacified subsegmental branch of the right lower lobe pulmonary artery. This could be artifactual. A small distal pulmonary embolus is not excluded. Correlate clinically. 3. The remaining pulmonary vessels are clear. 4. Cardiomegaly with evidence of pulmonary artery hypertension. 5. There is no airspace consolidation or pleural effusion. 6. Scattered subcentimeter pulmonary nodules have not significantly changed as compared to 05/19/2019. 7. 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 8. Additional findings as above. ACT 112: Negative or not required by law. Electronically signed by: Cesar Davila M.D. 02/05/2023 4:37 PM Discharge Plan Visit Data Chief Complaint: Cardiac Assessment Stated Complaint: chest pain/weakness ED Provider: Chava Arroyo Discharge Problem: Generalized weakness, Atypical chest pain, Generalized pain, Paresthesia, History of cerebral meningioma Forms Stand Alone Forms: Ani[facility] Prescriptions Prescriptions: No Action multivitamin Tablet 1 tab PO QAM paroxetine HCl 10 mg tablet 30 mg PO DAILY Patient Comments: simvastatin 20 mg tablet 20 mg PO HS warfarin 5 mg tablet 2.5 mg PO MOWEFR@1600 warfarin 5 mg tablet 5 mg PO SuTuThSa@1600 Patient Comments: patient bridging warfarin with lovenox fluticasone propionate 50 mcg/actuation spray,suspension 2 spray intranasal QAM calcium carb and citrate-vitD3 [Citracal-D3 Slow Release] 600 mg calcium- 500 unit Tablet Extended Release 1 tab PO BID Adempas 2 mg tablet 2 mg PO TID ascorbic acid (vitamin C) [Vitamin C] 500 mg Tablet 500 mg PO BID sodium chloride 0.65 % Aerosol,Axson 2 spray INTRANASAL QID PRN (Reason: Nasal Congestion) Citrucel (sucrose) Powder 1 tbsp PO DAILY acetaminophen [Tylenol Extra Strength] 500 mg Tablet 1,000 mg PO Q6H PRN (Reason: Pain) Qty: 0 0RF torsemide 5 mg tablet 0.5 mg PO DAILY potassium chloride [Klor-Con M10] 10 mEq tablet,ER particles/crystals 10 meq PO DAILY Referrals Referrals: Kim Miles [facility] [Primary Care Provider] -
[2023-02-05] MEDS ORDERED: POLYETHYLENE (MIRALAX) 17 GM PACK PO PRN (21:27)
[2023-02-05] MEDS ORDERED: SODIUM CHLORIDE 0.65% NA SOLN 45 ML (OCEAN) PRN (21:27)
[2023-02-05] MEDS ORDERED: NSS + 20MEQ KCL 20 MEQ/1,000 ML BAG IV SCH (21:27)
[2023-02-05] MEDS ORDERED: ALUMINUM/MAGNESIUM SUSP 30 ML UDC PO PRN (21:27)
[2023-02-05] MEDS ORDERED: MAGNESIUM HYDROXIDE SUSP 30 ML UDC PO PRN (21:27)
[2023-02-05] MEDS: ACETAMINOPHEN 325 MG TAB PO PRN (22:45)
[2023-02-05] MEDS: ASCORBIC ACID 500 MG TAB PO SCH (22:53)
[2023-02-05] MEDS: CALCIUM 600MG + VIT D 400 IU TAB PO SCH (22:54)
[2023-02-05] MEDS: SIMVASTATIN 20 MG TAB PO SCH (22:54)
[2023-02-05] MEDS ORDERED: ADEMPAS PO SCH (23:00)
[2023-02-05] MEDS: ADEMPAS PO SCH (23:28)
[2023-02-06] MEDS: ADEMPAS PO SCH ×3 (07:18→22:49)
[2023-02-06 07:34] LABS: Hematocrit (blood only) 35.9 % (37.0-47.0); Hemoglobin 12.1 g/dl (12.0-16.0); Mean Corpuscular Hemoglobin 32.2 pg (25.0-34.0); Mean Corpuscular Hgb Conc 33.7 g/dL (32.0-36.0); Mean Corpuscular Volume 95.5 fL (80.0-100.0); Mean Platelet Volume 10.3 fL (9.4-12.4); Platelet Count 227 K/uL (130-400); RDW Coefficient of Variation 12.8 % (11.5-14.5); Red Blood Count 3.76 M/uL (4.20-5.40); White Blood Count 6.91 K/ul (4.8-10.8)
[2023-02-06 07:58] LABS: INR 2.3 (0.9-1.1); Prothrombin Time 23.9 Seconds (9.0-12.0)
[2023-02-06 08:06] LABS: Calcium 9.1 mg/dl (8.6-10.3); Creatinine Clr Calc Pharmacy 82.3 ml/min; Est GFR (African American) 101.3 ml/min; Est GFR (Non-African American) 87.4 ml/min; Potassium 3.8 mmol/L (3.5-5.1)
--- NOTE | 2023-02-06 08:45 | Electrocardiogram Report ---
Test Reason : Blood Pressure : / mmHG Vent. Rate : 092 BPM Atrial Rate : 079 BPM P-R Int : 186 ms QRS Dur : 088 ms QT Int : 374 ms P-R-T Axes : 058 090 066 degrees QTc Int : 462 ms Sinus rhythm with Premature supraventricular complexes and with occasional Premature ventricular comp lexes Rightward axis Low voltage QRS Nonspecific T wave abnormality Anterior leads Abnormal ECG When compared with ECG of 05-FEB-2023 16:42, Premature ventricular complexes are now Present Confirmed by Edwin Reyes ([id number]) on 02/06/2023 9:36:54 AM Referred By: REFERRED SELF Confirmed By:Edwin Reyes
--- NOTE | 2023-02-06 08:51 | Electrocardiogram Report ---
Test Reason : Blood Pressure : / mmHG Vent. Rate : 075 BPM Atrial Rate : 075 BPM P-R Int : 188 ms QRS Dur : 088 ms QT Int : 412 ms P-R-T Axes : 067 092 050 degrees QTc Int : 460 ms Sinus rhythm with Premature atrial complexes Rightward axis Low voltage QRS Nonspecific T wave abnormality Anterior leads Abnormal ECG When compared with ECG of 05-FEB-2023 12:29, No significant change was found Confirmed by Edwin Reyes ([id number]) on 02/06/2023 8:44:54 AM Also confirmed by Edwin Reyes ([id number]), manager editorial Mario Arita ([id number]) on 02/06/2023 8:50:38 AM Referred By: REFERRED SELF Confirmed By:Edwin Reyes
[2023-02-06] MEDS: ASCORBIC ACID 500 MG TAB PO SCH ×2 (09:13→20:30)
[2023-02-06] MEDS: CALCIUM 600MG + VIT D 400 IU TAB PO SCH ×2 (09:13→20:30)
[2023-02-06] MEDS: FLUTICASONE PROPIONATE NA SPR 16 GM BTL SCH (09:14)
[2023-02-06] MEDS: PARoxetine HCL 10 MG TAB PO SCH (09:14)
[2023-02-06] MEDS: MULTIVITAMIN TAB PO SCH (09:14)
[2023-02-06] MEDS: METHYLCELLULOSE POWDER 454 GM JAR PO SCH (09:15)
[2023-02-06] MEDS: ACETAMINOPHEN 325 MG TAB PO PRN ×2 (10:02→20:29)
--- NOTE | 2023-02-06 15:04 | Hospitalist Progress Note ---
Date of Service February 06, 2023 Assessment & Plan (1) Generalized weakness: (2) Chest pain: Plan This is an 82-year-old female who has a significant past medical history as cerebellar meningioma, chronic thromboembolic pulmonary hypertension, chronic right-sided heart failure, hyperlipidemia, nonrheumatic tricuspid valve regurg, pancreas cyst, osteoarthritis involving multiple joints, polyneuropathy, mood disorder, chronic anticoagulation who presents to ED secondary to generalized weakness and chest pain x1 day. Generalized weakness following suspected viral GI illness Chest pain Initial EKG without ischemic change, troponin trends negative Echocardiogram done, f/u on result. May be secondary to recent GI illness Consult PT/OT -patient states that she has had therapy recently come to her home for the past month secondary to a right trochanteric bursitis Still feels weak and would like to go home tomorrow. History of pulmonary embolism: Admitting CTA chest reviewed. History of pulmonary artery embolectomy Chronic thromboembolic pulmonary hypertension Chronic right-sided heart failure Continue warfarin, patient therapeutic Patient recently started on 2.5 mg of torsemide secondary to lower extremity swelling Patient does not appear volume overloaded continue adempas, torsemide Cerebral meningioma A 4.2 cm extra-axial mass at the left vertex along the midline falx is typical for a meningioma. This has mildly increased in size from the 07/14/2021 examination. Localized mass effect/edema is similar to previous. Pt is aware and wishes for no further w/u Pancreatic Cyst: pt aware, follows PCP HLD: continue statin DVT ppx: Pt on warfarin Dispo: pt/ot, cm to assist w/ dc plan, likely mar. DNR/DNI PCP: Kim Nath Admission and Anticipated Discharge Date Admission Date: February 05, 2023 Subjective Patient seen and examined at bedside as a follow-up of generalized weakness following suspected viral GI illness, chest pain. Patient was sitting up in chair, on room air, reports no new acute event overnight, reports improving strength but still feels weak enough and does not feel safe to go home today, denies any further chest pain, reports eating okay and moving bowels okay. Physical Exam Physical Exam: GENERAL: Alert and oriented x3. NAD, on RA. HEENT: No pallor, no icterus. Pupils equal, round and reactive to light. Oral mucosa moist. NECK: No JVD, no neck masses. HEART: S1 and S2 heard. Regular rate and rhythm. No murmur, no gallop. RESPIRATORY SYSTEM: Normal AP diameter. No accessory muscle use. No wheezing, no crackles. ABDOMEN: Soft, bowel sounds present, nontender, no distention. CENTRAL NERVOUS SYSTEM: No facial droop. Speech is clear. Obeys simple commands. Moves extremities. EXTREMITIES: No edema, no erythema seen. Results & Data Results & Data Vital Signs (Past 12 Hours) Vital Signs Temp Pulse Pulse Resp BP Pulse Ox O2 Del Method 02/06/23 07:38 36.8 C 68 18 108/66 93 Room Air 02/06/23 07:31 63 02/06/23 04:21 36.6 C 53 L 20 96/42 L 94 Room Air
[2023-02-06] MEDS ORDERED: WARFARIN SOD 2.5 MG TAB PO SCH (16:00)
[2023-02-06] MEDS: SIMVASTATIN 20 MG TAB PO SCH (20:30)
[2023-02-06] MEDS ORDERED: MELATONIN 3 MG TAB PO SCH (21:00)
[2023-02-07] MEDS: ACETAMINOPHEN 325 MG TAB PO PRN ×2 (05:53→11:44)
[2023-02-07] MEDS: ADEMPAS PO SCH ×2 (07:43→14:56)
[2023-02-07] MEDS: MULTIVITAMIN TAB PO SCH (08:06)
[2023-02-07] MEDS: ASCORBIC ACID 500 MG TAB PO SCH (08:06)
[2023-02-07] MEDS: PARoxetine HCL 10 MG TAB PO SCH (08:08)
[2023-02-07] MEDS: FLUTICASONE PROPIONATE NA SPR 16 GM BTL SCH (08:11)
[2023-02-07] MEDS: METHYLCELLULOSE POWDER 454 GM JAR PO SCH (08:11)
[2023-02-07] MEDS ORDERED: TORSEMIDE 10 MG TAB PO SCH (09:00)
[2023-02-07] MEDS ORDERED: POTASSIUM CHLORIDE 10 MEQ TABCR PO SCH (09:00)
[2023-02-07] MEDS: CALCIUM 600MG + VIT D 400 IU TAB PO SCH (10:12)
--- NOTE | 2023-02-07 11:07 | Discharge Summary ---
Date of Service February 07, 2023 Admission HPI Per Admitting Provider This is an 82-year-old female who has a significant past medical history as cerebellar meningioma, chronic thromboembolic pulmonary hypertension, chronic right-sided heart failure, hyperlipidemia, nonrheumatic tricuspid valve regurg, pancreas cyst, osteoarthritis involving multiple joints, polyneuropathy, mood disorder, chronic anticoagulation who presents to ED secondary to generalized weakness and chest pain x1 day. Patient states she had a GI illness last week with generalized weakness, myalgias, arthralgias and diarrhea. Her symptoms mostly resolved yesterday yesterday she was in her normal state of health. 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 This is what prompted her to come to the ER. She also complained of headache and just generalized feeling weak. She denies any shortness of breath, palpitations, lightheadedness or dizziness associated with the chest pain. She has never had anything similar in the past. It is not made worse with deep breathing, lying down or sitting forward. Movement does seem to make it worse, but again is not associated with shortness of breath. Overall appetite has still been poor. She has been able to take her medications but has not been eating and drinking much. Approximately 2 weeks ago she was started on torsemide 2.5 mg and potassium chloride. This was secondary to lower extremity swelling which has since resolved. She notes that she does not like taking this medication. In ED patient remained hemodynamically stable. Her CBC and CMP was generally unremarkable except for mild elevated BUN/creatinine ratio. Her urinalysis was negative for infection. Her SARS-CoV-2, influenza and RSV was negative. She received IV Tylenol, 10 mg dexamethasone, IV fluids and 0.25 mg of lorazepam. She overall does feel improved and states, "I just feel numb." Currently she denies any chest pain. Initial troponin was negative. EKG revealed sinus rhythm with PAC and no ischemic like change. Patient lives at home with her sister. She ambulates with a walker and is independent of ADLs and IADLs. She still drives. She states the sister she lives with is not in as good condition, but has family that takes good care of her. Patient also states that she has had in-home PT coming to the house for the past month secondary to bursitis. She had a short course of steroids, cortisone injection and PT and still has had difficulty with the bursitis. Admission Exam Per Admitting Provider Constitutional: WD/WN, elderly f, vitals as above, NAD, sitting up in bed, pleasant, conversing easily Head: Normocephalic, Atraumatic Eyes: PERRL, conjunctivae normal, anicteric sclerae ENMT: external ear and nose normal, oropharynx normal dry membranes Neck: trachea midline, no thyromegaly normal visual inspection Respiratory: normal respiratory effort, lungs clear to auscultation, no wheeze, rales, rhonchi. Normal insp/exp effort, no accessory muscle use Cardiovascular: RRR, occassional ectopy no murmur, no edema Vessels: no JVD or carotid bruit Chest: normal inspection of chest, no pain to palpation Abdomen: normal bowel sounds, soft, nontender, no hepatosplenomegaly Musculoskeletal: no cyanosis or clubbing, extremities motor strength 5/5 Skin: no rashes, warm and dry normal turgor Neurologic: PERRL, EOMI, accommodation nl, no face palsy, no dysarthria CN's II-XI intact bilaterally and moves all extremities Psychiatric: A+Ox3, euthymic affect Lymphatic: no cervical or axillary lymphadenopathy : deferred Principal Diagnosis Generalized weakness following suspected viral GI illness Chest pain, ruled out ACS Discharge Exam GENERAL: Alert and oriented x3. NAD, on RA. HEENT: No pallor, no icterus. Pupils equal, round and reactive to light. Oral mucosa moist. NECK: No JVD, no neck masses. HEART: S1 and S2 heard. Regular rate and rhythm. No murmur, no gallop. RESPIRATORY SYSTEM: Normal AP diameter. No accessory muscle use. No wheezing, no crackles. ABDOMEN: Soft, bowel sounds present, nontender, no distention. CENTRAL NERVOUS SYSTEM: No facial droop. Speech is clear. Obeys simple commands. Moves extremities. EXTREMITIES: No edema, no erythema seen. Discharge Data Allergies Allergy/AdvReac Type Severity Reaction Status Date / Time nitroglycerin AdvReac Unknown see comment Verified 02/05/23 18:33 Ordered Studies 02/05/23 14:27 CT head/brain wo con Stat 02/05/23 14:28 CT angio chest PE protocol Stat Hospital Course (1) Generalized weakness: (2) Chest pain: Plan This is an 82-year-old female who has a significant past medical history as cerebellar meningioma, chronic thromboembolic pulmonary hypertension, chronic right-sided heart failure, hyperlipidemia, nonrheumatic tricuspid valve regurg, pancreas cyst, osteoarthritis involving multiple joints, polyneuropathy, mood disorder, chronic anticoagulation who presents to ED secondary to generalized weakness and chest pain x1 day. She was managed for the following: Generalized weakness following suspected viral GI illness Chest pain Initial EKG without ischemic change, troponin trends negative Echocardiogram done, f/u on result. May be secondary to recent GI illness Consult PT/OT -patient states that she has had therapy recently come to her home for the past month secondary to a right trochanteric bursitis Reports strength getting better, and would like to go home today. Pt to continue w/ PT therapy at home. History of pulmonary embolism: Admitting CTA chest reviewed. History of pulmonary artery embolectomy Chronic thromboembolic pulmonary hypertension Chronic right-sided heart failure Continue warfarin, patient therapeutic Patient recently started on 2.5 mg of torsemide secondary to lower extremity swelling Patient does not appear volume overloaded continue adempas, torsemide Cerebral meningioma A 4.2 cm extra-axial mass at the left vertex along the midline falx is typical for a meningioma. This has mildly increased in size from the 07/14/2021 examination. Localized mass effect/edema is similar to previous. Pt is aware and wishes for no further w/u Pancreatic Cyst: pt aware, follows PCP HLD: continue statin DVT ppx: Pt on warfarin DNR/DNI PCP: Kim Nath Patient is being discharged to home with following instruction at the point of discharge: Follow-up with your primary care physician within a week time and likely you will need labs CBC/CMP/magnesium/phosphorus. Continue with physical therapy upon discharge. Continue medications as prescribed. Home Health Attestation I certify that this patient is under my care and that I, or a physicians addictions counselor assistant working with me, had a face to-face encounter that meets the home health [id number] encounter requirements with this patient. The encounter with the patient was in whole, or in part, for the following medical condition, which is the primary reason for home health care (list medical condition): I certify that, based on my findings, the following services are medically necessary home health services: My clinical findings support the need for the above services because: Further, I certify that my clinical findings support that this patient is homebound (i.e. absences from home require considerable and taxing effort and are for medical reasons or latter day services or infrequently or of short duration when for other reasons) because: Certification for Home Health Services: Based on the above findings, I certify that this patient is confined to the home and needs intermittent halfway care, physical therapy and/or speech therapy or continues to need occupational therapy. The patient is under my care, and I have initiated the establishment of the plan of care. This patient will be followed by a physician who will periodically review the plan of care. Total Time Total Time Spent Total Time Spent (In Minutes): 45 Discharge Plan Discharge Items Patient Disposition: Home - Home Health Services Reason For Visit: GENERALIZED WEAKNESS Discharge Diagnosis: Generalized weakness following suspected viral GI illness Chest pain, ruled out ACS Activity: Resume your previous activity Non-emergency contact: Primary Care Provider Call non-emergency contact if: you have any medication questions, your symptoms worsen and your temperature is above 101 Follow-up/Referrals: Kim Miles PA-C [Primary Care Provider] - (Date & Time 02/12/2023 9:00 AM Provider Kim Miles PA-C Department [facility] ) Diet: Heart Healthy and Low Sodium (2gm) Addtl Attending Provider Instructions: Follow-up with your primary care physician within a week time and likely you will need labs CBC/CMP/magnesium/phosphorus. Continue with physical therapy upon discharge. Continue medications as prescribed. Pending Studies at Discharge: No Stand-Alone Forms: My [facility], Smoking Cessation Medications and DC Order Prescriptions: New melatonin 3 mg Tablet 3 mg PO HS PRN (Reason: sleep) Qty: 30 0RF Continued multivitamin Tablet 1 tab PO QAM paroxetine HCl 10 mg tablet 30 mg PO DAILY Patient Comments: simvastatin 20 mg tablet 20 mg PO HS warfarin 5 mg tablet 2.5 mg PO [id number] warfarin 5 mg tablet 5 mg PO [id number] Patient Comments: patient bridging warfarin with lovenox fluticasone propionate 50 mcg/actuation spray,suspension 2 spray intranasal QAM calcium carb and citrate-vitD3 [Citracal-D3 Slow Release] 600 mg calcium- 500 unit Tablet Extended Release 1 tab PO BID Adempas 2 mg tablet 2 mg PO TID ascorbic acid (vitamin C) [Vitamin C] 500 mg Tablet 500 mg PO BID sodium chloride 0.65 % Aerosol,[place] 2 spray INTRANASAL QID PRN (Reason: Nasal Congestion) Citrucel (sucrose) Powder 1 tbsp PO DAILY acetaminophen [Tylenol Extra Strength] 500 mg Tablet 1,000 mg PO Q6H PRN (Reason: Pain) Qty: 0 0RF torsemide 5 mg tablet 0.5 mg PO DAILY potassium chloride [Klor-Con M10] 10 mEq tablet,ER particles/crystals 10 meq PO DAILY Discharge Orders: Discharge Order (Routine); Ordered 02/07/23 Ordered By: Charmaine Red Admission Data Admit Date/Time: 02/06/23 18:12 Attending Provider: Charmaine Rde Admit Provider: Charmaine Red Primary Care Provider: Kim Miles
[2023-02-07] MEDS ORDERED: WARFARIN SOD 5 MG TAB PO SCH (16:00)
== END 2023-02-07 16:30 | disposition home health service (06) | DRG 392 ==
LOC: ED 12:26 → 2N 12:26

== ENCOUNTER 2025-08-26 14:00 | Observation (INO) ==
--- NOTE | 2025-08-26 14:17 | Emergency Department Note ---
Impression & Plan Acute head trauma, Ambulatory dysfunction, Weakness, Dizziness ED Provider Note NAME: JULISSA WHITEHEAD AGE: 84 SEX: F : 1940 ARRIVES VIA: Ambulance INFORMANT: [Patient][EMS] ED PROVIDER(S): [Cesar Green MD] Patient first seen by me at 1405 CHIEF COMPLAINT: Fall HISTORY OF PRESENT ILLNESS: The patient is an 84-year-old female who states that a week ago, she had a mechanical trip and fell and struck her head. The patient did not fall completely to the ground. Since the episode, she has had a headache, some dizziness and just has not felt well. There has been some nausea. She also has noticed some pain in the lower right abdomen and mid low abdomen. She has no neck pain, she has not had fever. No cough or congestion or shortness of breath. No rib pain or back pain. No pain in the upper or lower extremities. Today, she was so dizzy, she came to the ER, she is concerned for intracranial bleeding. She is on warfarin. PMHx/PSHx/Social Hx: See Below PHYSICAL EXAM: Primary Survey Airway: Intact Breathing: Breath sounds equal bilaterally. No respiratory distress Circulation: Skin warm, capillary refill less than 2 seconds Disability: Pupils equal and reactive to light Motor Function: Moves all extremities. Sensory: No deficits Secondary Survey GEN: Well developed and well-nourished HEAD: Normocephalic, atraumatic EYES: Pupils round and reactive to light, conjunctiva clear, extraocular movements intact ENT: No fluid in external acoustic canals, nares patent, oropharynx clear NECK: Midline trachea, no cervical spine tenderness HEART: Regular rate and rhythm LUNGS: Clear to auscultation bilaterally CHEST: Chest wall non-tender, no bruising/deformity ABD: No contusions, soft, tender in the mid low abdomen and right lower abdomen. PELVIS: Stable to rock BACK: No step offs or deformities, T-L spine non tender EXT: Moving all extremities well, no gross deformities NEURO: No focal motor deficits, no sensory deficits DIFFERENTIAL DIAGNOSIS: Intracranial injury, intra-abdominal injury, dehydration, electrolyte imbalance, UTI, among others. EMERGENCY DEPARTMENT PROCEDURES: C-spine was clinically cleared at 1408, during my initial assessment. MEDICAL DECISION MAKING: There is no leukocytosis or concerning anemia. There is a normal platelet count. INR is 2.8, consistent with her warfarin use. No renal failure or significant electrolyte abnormality. No concerning liver enzyme elevation. No evidence for pancreatitis. ECG shows a sinus rhythm, no obvious ST elevation. Cardiac enzyme testing x 1 is not consistent with acute cardiac injury. Urinalysis does not show findings of infection. Respiratory BioFire was negative. Chest x-ray did not show rib injury or pneumonia, there was no pneumothorax. Brain CT showed no acute bleed or mass effect. The CT did show her known meningioma, this was thought stable. Abdominal and pelvis CT showed no acute traumatic process or acute surgical process. On exam, the patient complained of being dizzy and weak, she was not febrile or toxic. The patient received IV saline, 1 L. She was given IV Zofran and IV Tylenol. I did go over the results with the patient at length. We did attempt an ambulation trial. The patient could not walk on her own even with her walker. She was helped back in the bed. The patient presents with dizziness and weakness. Certainly, she may just have a simple concussion from her head trauma a week ago. Regardless, she is not safe with discharge home. I spoke with the patient and case management, the on-call hospitalist was consulted. Prior/Outside records/notes reviewed: Today's EMS notes describing her presentation and transport to this hospital. ECG per my interpretation: Indication was trauma. The ECG shows a sinus rhythm with an occasional PAC. The rate is 76. There is no ST elevation, no PVCs. The QTc is 450. Continuous Cardiac Monitoring per my interpretation: An order was placed for continuous cardiac monitoring. The monitor shows a rate of 77 with normal sinus rhythm. Imaging/x-ray results per my interpretation: Chest x-ray does not show pneumothorax or any obvious rib injury. There is some congestion of the right lower lung although, this appears somewhat chronic looking back at previous imaging. Chronic Medical/Social conditions affecting care: Advanced age, on warfarin therapy. Care/Management discussed with: Case management, the on-call hospitalist. Level of care consideration(s): After review of the information above and other included data: --I believe the patient requires escalation of care to admission DISPOSITION: Admission Past Med/Surg History Problem List Dizziness (Acute) Weakness (Acute) Ambulatory dysfunction (Acute) Acute head trauma (Acute) Warfarin anticoagulation Chronic venous thrombosis Minor head trauma BPV (benign positional vertigo) History of cerebral meningioma (Acute) Paresthesia (Acute) Generalized pain (Acute) Atypical chest pain (Acute) Generalized weakness (Acute) Chest pain Generalized weakness Effusion, right knee Acute pain of right knee (Acute) Ambulatory dysfunction (Acute) Bilateral lower extremity pain (Acute) Feeling weak (Acute) Effusion of knee joint right (Acute) Encounter for pre-operative examination Dyslipidemia (Chronic) Diverticular disease of colon (Chronic) Pulmonary nodule (Chronic) "RUL 6 mm, CT 06/14/17 and 05/09/18." History of pulmonary embolism (Chronic) per pt d/t not being active? History of colonic diverticulitis (Chronic) Status post cholecystectomy (Chronic) Status post appendectomy (Chronic) History of embolectomy (Chronic) 2003 "for pulmonary embolism" @ [facility] History of vascular access device (Chronic) "Krueger cath, removed"--per pt was in for 11 years Status post insertion of inferior vena caval filter (Chronic) марина filter Medical History History of anesthesia reaction was instructed after embolectomy to never have "heavy anesthesia because I may not wake up or I would end up on a ventilator" Anxiety Surgical History History of colonoscopy History of hemorrhoidectomy History of esophagogastroduodenoscopy (EGD) History of tooth extraction History of tonsillectomy History of bilateral cataract extraction History of cardiac cath x3--last 2014--no stents---follows with Dr. Abbott Family History Father Family hx of colon cancer Other Family history non-contributory No family history of adverse response to anesthesia Social History Smoking Status: Never smoker Second Hand Exposure: Yes; Do You Dip or Chew Tobacco: No; Hx Alcohol Use: No Hx Substance Use: No Preferred Language: Togolese Communication Ability: Effective [employer] Coordinator Required: No Beliefs That Will Affect Care: None Current Living Situation: Family Current Living Situation Comment: lives with sister Feels Safe at Home: Yes Assistive Devices: Cane and Walker Allergies Allergies Allergy/AdvReac Type Severity Reaction Status Date / Time nitroglycerin AdvReac Unknown see comment Verified 08/26/25 19:35 Home Meds Home Medications Medication Instructions Recorded Confirmed calcium ER 600 mg (as carb,cit)-D3 1 tab PO BID 07/30/19 08/26/25 12.5 mcg (500 unit) tablet, ext.rel (Citracal-D3 Slow Release) fluticasone propionate 50 2 spray intranasal QAM PRN 07/30/19 08/26/25 mcg/actuation nasal Congestion spray,suspension multivitamin 1 tab PO QAM 07/30/19 08/26/25 paroxetine HCl 10 mg tablet 30 mg PO DAILY PRN Anxiety 07/30/19 08/26/25 riociguat 2 mg tablet (Adempas) 2 mg PO TID 07/30/19 08/26/25 simvastatin 20 mg tablet 20 mg PO HS 07/30/19 08/26/25 warfarin 5 mg tablet 2.5 mg PO 3XWK 07/30/19 08/26/25 warfarin 5 mg tablet 5 mg PO 4XWK 07/30/19 08/26/25 ascorbic acid (vitamin C) 500 mg 500 mg PO BID 05/09/21 08/26/25 tablet (Vitamin C) methylcellulose (with sugar) oral 1 tbsp PO DAILY 05/09/21 08/26/25 powder (Citrucel (sucrose) oral powder) sodium chloride 0.65 % nasal spray 2 spray intranasal QID PRN Nasal 05/09/21 08/26/25 aerosol Congestion Results & Data (ED) Vital Signs Vital Signs - 24 hr 08/26/25 14:01 08/26/25 14:01 08/26/25 15:53 Temperature 36.5 C Temperature Source Oral Pulse Rate 84 Pulse Rate [Apical] 84 68 Pulse Rhythm [Apical] Regular Pulse Strength [Apical] Normal Respiratory Rate 18 18 16 Respiratory Effort / Characteristics Non-Labored Spontaneous Respiratory Depth Normal Respiratory Pattern Regular Blood Pressure 141/81 H Blood Pressure [Right Arm] 141/81 H 148/62 H Blood Pressure Mean 101 Blood Pressure Mean [Right Arm] 101 90 Blood Pressure Position Semi-fowlers Blood Pressure Position [Right Arm] Semi-fowlers Lying Pulse Oximetry 96 96 97 Oxygen Delivery Method Room Air Room Air Room Air Sepsis Recent Fever Within 48 Hours No Sepsis New/Unexplained Change in Mental Status No Sepsis Action Taken by Nursing No Action Required 08/26/25 16:00 08/26/25 17:00 08/26/25 18:00 Temperature Temperature Source Pulse Rate Pulse Rate [Apical] 66 73 99 H Pulse Rhythm [Apical] Regular Regular Pulse Strength [Apical] Normal Normal Respiratory Rate 20 18 20 Respiratory Effort / Characteristics Non-Labored Spontaneous Non-Labored Spontaneous Non-Labored Spontaneous Respiratory Depth Normal Normal Normal Respiratory Pattern Regular Regular Regular Blood Pressure Blood Pressure [Right Arm] 148/62 H 141/94 H 176/82 H Blood Pressure Mean Blood Pressure Mean [Right Arm] 90 109 113 Blood Pressure Position Blood Pressure Position [Right Arm] Lying Lying Lying Pulse Oximetry 94 93 95 Oxygen Delivery Method Room Air Room Air Room Air Sepsis Recent Fever Within 48 Hours Sepsis New/Unexplained Change in Mental Status Sepsis Action Taken by Custodial Medications Current Medication List: was personally reviewed by me Laboratory Data Attestation: I reviewed the patient's lab results. 08/26/25 14:08 08/26/25 14:08 Lab Results 08/26/25 08/26/25 08/26/25 Range/Units 14:08 14:16 15:27 WBC 5.02 (4.8-10.8) K/ul RBC 4.41 (4.20-5.40) M/uL Hgb 14.0 (12.0-16.0) g/dl POC Hgb 14.6 (12.0-16.0) g/dl Hct 42.6 (37.0-47.0) % POC Hct 43 (37-47) % MCV 96.6 (80.0-100.0) fL MCH 31.7 (25.0-34.0) pg MCHC 32.9 (32.0-36.0) g/dL RDW Std Deviation 47.1 H (36.4-46.3) fL RDW Coeff of Susan 13.1 (11.5-14.5) % Plt Count 302 (130-400) K/uL MPV 9.8 (9.4-12.4) fL Immature Gran % (Auto) 0.2 % Neut % (Auto) 59.5 % Lymph % (Auto) 32.1 % [place] % (Auto) 7.0 % Eos % (Auto) 0.6 % Baso % (Auto) 0.6 % Neut # (Auto) 2.99 (1.40-6.50) K/uL Lymph # (Auto) 1.61 (1.20-3.40) K/uL [place] # (Auto) 0.35 (0.11-0.59) K/uL Eos # (Auto) 0.03 (0.00-0.50) K/uL Baso # (Auto) 0.03 (0.00-0.20) K/uL Immature Gran # (Auto) 0.01 (0.01-0.20) K/uL PT 27.7 H (9.0-12.0) Seconds INR 2.8 H (0.9-1.1) APTT 36 H (21-31) Seconds PTT Ratio 1.3 POC Sodium 138 (135-144) mmol/L Sodium 139 (136-145) mmol/L POC Potassium 4.1 (3.3-5.0) mmol/L Potassium 4.1 (3.5-5.1) mmol/L POC Chloride 102 (101-112) mmol/L Chloride 102 (98-107) mmol/L Carbon Dioxide 27 (21-32) mmol/L POC Total CO2 27 (24-31) mmol/L Anion Gap 10 (3-11) POC Anion Gap 14.0 L (16-25) mmol/L POC BUN 8 (7-18) mg/dl BUN 8 (6-23) mg/dl Creatinine 0.53 L (0.6-1.2) mg/dl POC Creatinine 0.7 (0.6-1.3) mg/dl Est Cr Clr Drug Dosing Not Reportable eGFR 91.71 BUN/Creatinine Ratio 15.1 (10-20) Glucose 110 H (70-99(Fasting)) mg/dl POC Glucose (other) 109 H (70-99) mg/dl Calcium 9.6 (8.6-10.3) mg/dl POC Ioniz Calcium Eli 1.15 (1.12-1.32) mmol/l Magnesium 1.9 (1.7-2.4) mg/dl Total Bilirubin 0.8 (0.2-1.0) mg/dl AST 19 (13-39) U/L ALT 12 (7-52) U/L Alkaline Phosphatase 50 (34-104) U/L Troponin I High Sens 4.3 (0-14) pg/ml Total Protein 6.9 (6.0-8.3) gm/dl Albumin 4.0 (3.4-5.0) gm/dl Globulin 2.9 (2.5-4.0) gm/dl Albumin/Globulin Ratio 1.4 (0.9-2) Lipase 29 (11-82) U/L Urine Color Yellow Urine Appearance Clear (Clear) Urine pH >= 9.0 H (4.5-7.5) Ur Specific [place] 1.010 (1.000-1.030) Urine Protein Negative (Negative) Urine Glucose (UA) Negative (Negative) Urine Ketones Negative (Negative) Urine Blood Negative (Negative) Urine Nitrite Negative (Negative) Urine Bilirubin Negative (Negative) Urine Urobilinogen Negative (Negative) Ur Leukocyte Esterase Negative (Negative) Urine Comment Administered Medications Diazepam (Diazepam 2 Mg Tablet) 1 mg PO TID [facility] Stop: 09/25/25 20:59 Last Admin: 08/26/25 23:09 Dose: Not Given Documented By: FOX Meclizine HCl (Meclizine Hcl 25 Mg Tab) 25 mg PO TID [facility] Stop: 09/25/25 20:59 Last Admin: 08/26/25 23:09 Dose: 25 mg Documented By: FOX Simvastatin (Simvastatin 20 Mg Tab) 20 mg PO HS [facility] Stop: 09/25/25 20:59 Last Admin: 08/26/25 23:09 Dose: 20 mg Documented By: FOX Warfarin Sodium (Warfarin Sod 5 Mg Tab) 5 mg PO [id number]@1600 [facility] Stop: 09/25/25 20:45 Last Admin: 08/26/25 23:19 Dose: 5 mg Documented By: [facility] Discontinued Medications Sodium Chloride (Nss) 500 mls @ 999 mls/hr IV .Q31M MIGUE Stop: 08/26/25 14:45 Last Infusion: 08/26/25 15:16 Dose: Infused Documented By: Admin: 08/26/25 14:30 Dose: 999 mls/hr Documented By: CEF Acetaminophen (Ofirmev) 1,000 mg in 100 mls @ 400 mls/hr IV NOW STA Stop: 08/26/25 14:26 Last Infusion: 08/26/25 15:16 Dose: Infused Documented By: Admin: 08/26/25 14:32 Dose: 400 mls/hr Documented By: PRABHJOT Sodium Chloride (Nss) 500 mls @ 999 mls/hr IV .Q31M ONE Stop: 08/26/25 16:46 Last Infusion: 08/26/25 17:58 Dose: Infused Documented By: Admin: 08/26/25 16:27 Dose: 999 mls/hr Documented By: PAULINE Ioversol (Optiray 320 100ml) 93 ml IV ONCE ONE Stop: 08/26/25 15:42 Last Admin: 08/26/25 15:41 Dose: 93 ml Documented By: LEW Ondansetron HCl (Ondansetron Inj 2 Mg/Ml 2 Ml Vial) 4 mg IV NOW STA Stop: 08/26/25 14:13 Last Admin: 08/26/25 14:29 Dose: 4 mg Documented By: PRABHJOT Imaging Data Radiologist's Impression: Abdomen/Pelvis CT 08/26/25 14:[address] WITH IV CONTRAST HISTORY: Acute abdominal trauma with weakness and dizziness. Trauma TECHNIQUE: Multiaxial CT images of the abdomen and pelvis were performed following the IV administration of 93 cc of Optiray, A dose lowering technique was utilized adhering to the principles of ALARA. COMPARISON STUDY: CTA 05/09/2018 FINDINGS: Mild cardiomegaly. No acute lower thoracic abnormality. There is no pneumatosis or pneumoperitoneum identified. Unremarkable spleen and adrenal glands. Cholecystectomy with likely postsurgical biliary ductal dilation is similar to prior. There is patency of the hepatic and portal veins. No suspicious liver lesions identified. There are a few subcentimeters hypodensities in the liver, likely small cysts. 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 An additional similar appearing 1.2 cm lesion involves the pancreatic head. Subcentimeter right renal cysts. No hydronephrosis. 9 mm hyperdense lesion of the superior pole left kidney on image 86 previously measured 6 mm. Fibroid uterus. Atherosclerosis of the aorta with tortuosity. Infrarenal IVC filter. No lymphadenopathy. Small hiatal hernia. No bowel obstruction or bowel wall thickening. Colonic diverticulosis without acute diverticulitis. No ascites. No paravertebral edema. Multilevel degenerative changes of the spine. Lumbar levoscoliosis. 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 Small fat filled umbilical hernia, opening of 1.8 cm on image 144. IMPRESSION: 1. No acute intra-abdominal or intrapelvic abnormality. 2. No acute fracture identified. 3. Indeterminate 9 mm hyperdense lesion in the superior pole left kidney could be further characterized with ultrasound. 4. Incidental findings as above. ACT 112: Negative or not required by law. The above report was generated using voice recognition software. It may contain grammatical, syntax or spelling errors. Electronically signed by: Jv Serna M.D. 08/26/2025 4:00 PM Chest X-Ray 08/26/25 14:12 SINGLE VIEW CHEST CLINICAL HISTORY: Trauma FINDINGS: An AP, portable, upright chest radiograph is compared to study dated 04/14/2024 and correlated with chest CT dated 02/05/2023. The patient is status post midline sternotomy. The heart is enlarged noting atherosclerotic calcification of the thoracic aorta. The pulmonary vasculature is noncongested. Enlargement of the central pulmonary vessels suggests pulmonary hypertension. Foci of parenchymal scarring are seen throughout both lung. No airspace consolidation or large pleural effusion is identified. No pneumothorax is seen. The skeletal structures are osteopenic. That bony thorax is grossly intact. Arthritic change is seen in the shoulders. IMPRESSION: Cardiomegaly with no acute cardiopulmonary abnormality identified. ACT 112: Negative or not required by law. Electronically signed by: Cesar Davila M.D. 08/26/2025 2:[address] 08/26/25 14:13 CT SCAN OF THE BRAIN WITHOUT IV CONTRAST CLINICAL HISTORY: Trauma. COMPARISON STUDY: CT of the brain dated 04/14/2024 TECHNIQUE: Unenhanced CT scan of the brain is performed from the vertex to the skull base. Images are reviewed in the axial, sagittal, coronal planes. A dose lowering technique was utilized adhering to the principles of ALARA. CT DOSE: 1448.85 mGy.cm FINDINGS: Brain parenchyma: An approximately 4 x 3.5 cm hyperdense mass along the posterior midline falx at the vertex is again seen on image #25. There is surrounding edema with effacement of the overlying cortical sulci and approximately 6 mm of leftward midline shift at the vertex. There is age-related involutional change noting mild subcortical and periventricular microangiopathic disease. There is no hemorrhage or evidence of acute territorial ischemia by CT criteria. No extra-axial fluid collection is seen. Ventricles, sulci, cisterns: Prominent secondary to involutional change. Intracranial vasculature: There is atherosclerotic calcification of the cavernous carotid and vertebral arteries. Calvarium: Unremarkable. Sinuses and mastoids: The visualized paranasal sinuses are clear. The mastoid air cells are well pneumatized. Orbits: The bony orbits are grossly intact. There are bilateral ocular lens implants. IMPRESSION: 1. There is no evidence of hemorrhage or acute territorial ischemia by CT criteria. 2. An approximately 4 x 3.5 cm hyperdense mass is again seen along the left posterior falx at the vertex. This is typical for a meningioma, and there is associated mass effect/edema. This is similar in appearance to prior studies. ACT 112: Negative or not required by law. Electronically signed by: Cesar Davila M.D. 08/26/2025 4:03 PM Discharge Plan Visit Data Chief Complaint: Fall Stated Complaint: fall, on thinners ED Provider: Cesar Green Discharge Problem: Acute head trauma, Ambulatory dysfunction, Weakness, Dizziness Patient Disposition: Admitted As Inpatient Condition: Fair Discharge Instructions Interventions: ED Discharge Assessment Last Done: 08/26/25 20:47 Discharge Problem: Acute head trauma Qualifiers: Encounter type: initial encounter Qualified Code(s): S09.90XA - Unspecified injury of head, initial encounter
[2025-08-26 14:27] LABS: Hematocrit (blood only) 42.6 % (37.0-47.0); Hemoglobin 14.0 g/dl (12.0-16.0); Immature Granulocytes # (auto) 0.01 K/uL (0.01-0.20); Immature Granulocytes % (auto) 0.2 %; Mean Corpuscular Hemoglobin 31.7 pg (25.0-34.0); Mean Corpuscular Volume 96.6 fL (80.0-100.0); Platelet Count 302 K/uL (130-400); RDW Standard Deviation 47.1 fL (36.4-46.3); Red Blood Count 4.41 M/uL (4.20-5.40); White Blood Count 5.02 K/ul (4.8-10.8)
[2025-08-26] MEDS: ONDANSETRON INJ 2 MG/ML 2 ML VIAL IV STA (14:29)
[2025-08-26] MEDS: SODIUM CHLORIDE 0.9% 500 ML IV SCH (14:30)
[2025-08-26] MEDS: ACETAMINOPHEN 1,000 MG/100 ML VIAL IV STA (14:32)
--- NOTE | 2025-08-26 14:42 | XRay Report ---
SINGLE VIEW CHEST CLINICAL HISTORY: Trauma FINDINGS: An AP, portable, upright chest radiograph is compared to study dated 04/14/2024 and correlat ed with chest CT dated 02/05/2023. The patient is status post midline sternotomy. The heart is enlarged noting atherosclerotic calcification of the thoracic aorta. The pulmonary vasculature is noncongeste d. Enlargement of the central pulmonary vessels suggests pulmonary hypertension. Foci of parenchymal scarring are seen throughout both lung. No airspace consolidation or large pleural effusion is identi fied. No pneumothorax is seen. The skeletal structures are osteopenic. That bony thorax is grossly in tact. Arthritic change is seen in the shoulders. IMPRESSION: Cardiomegaly with no acute cardiopulmonary abnormality identified. ACT 112: Negative or not required by law. Electronically signed by: Cesar Davila M.D. 08/26/2025 2:41 PM
[2025-08-26 14:45] LABS: Alanine Aminotransferase 12 U/L (7-52); Albumin Globulin Ratio 1.4 (0.9-2); Albumin Level 4.0 gm/dl (3.4-5.0); Alkaline Phosphatase 50 U/L (34-104); Anion Gap 10 (3-11); Bilirubin,Total 0.8 mg/dl (0.2-1.0); Blood Urea Nitrogen 8 mg/dl (6-23); Calcium 9.6 mg/dl (8.6-10.3); Carbon Dioxide 27 mmol/L (21-32); Chloride 102 mmol/L (98-107); Globulin 2.9 gm/dl (2.5-4.0); Glucose 110 mg/dl (70-99(Fasting)); Lipase 29 U/L (11-82); Potassium 4.1 mmol/L (3.5-5.1); Sodium 139 mmol/L (136-145); Total Protein 6.9 gm/dl (6.0-8.3)
[2025-08-26 14:52] LABS: Magnesium 1.9 mg/dl (1.7-2.4)
[2025-08-26 14:56] LABS: INR 2.8 (0.9-1.1); Partial Thromboplastin Time 36 Seconds (21-31); Prothrombin Time 27.7 Seconds (9.0-12.0)
[2025-08-26] MEDS: OPTIRAY 320 100ml IV ONE (15:41)
[2025-08-26 15:46] LABS: Appearance Urine Clear (Clear); Glucose Urine UA Negative (Negative)
--- NOTE | 2025-08-26 16:01 | CT Scan Report ---
ABDOMEN AND PELVIS CT WITH IV CONTRAST HISTORY: Acute abdominal trauma with weakness and dizziness. Trauma TECHNIQUE: Multiaxial CT images of the abdomen and pelvis were performed following the IV administrat ion of 93 cc of Optiray, A dose lowering technique was utilized adhering to the principles of ALARA. COMPARISON STUDY: CTA 05/09/2018 FINDINGS: Mild cardiomegaly. No acute lower thoracic abnormality. There is no pneumatosis or pneumope ritoneum identified. Unremarkable spleen and adrenal glands. Cholecystectomy with likely postsurgical biliary ductal dilation is similar to prior. There is patency of the hepatic and portal veins. No raza spicious liver lesions identified. There are a few subcentimeters hypodensities in the liver, likely small cysts. 1.7 cm cystic focus of the pancreatic tail on image 101 series 6 favors a probable sideb [place] IPMN. An additional similar appearing 1.2 cm lesion involves the pancreatic head. Subcentimeter right renal cysts. No hydronephrosis. 9 mm hyperdense lesion of the superior pole left kidney on image 86 previously measured 6 mm. Fibroid uterus. Atherosclerosis of the aorta with tortuo sity. Infrarenal IVC filter. No lymphadenopathy. Small hiatal hernia. No bowel obstruction or bowel w all thickening. Colonic diverticulosis without acute diverticulitis. No ascites. No paravertebral mary ma. Multilevel degenerative changes of the spine. Lumbar levoscoliosis. Severe osteoarthritis with ch ronic remodeling of the hips. Small fat filled umbilical hernia, opening of 1.8 cm on image 144. IMPRESSION: 1. No acute intra-abdominal or intrapelvic abnormality. 2. No acute fracture identified. 3. Indeterminate 9 mm hyperdense lesion in the superior pole left kidney could be further characteriz ed with ultrasound. 4. Incidental findings as above. ACT 112: Negative or not required by law. The above report was generated using voice recognition software. It may contain grammatical, syntax o r spelling errors. Electronically signed by: Jv Serna M.D. 08/26/2025 4:00 PM
--- NOTE | 2025-08-26 16:05 | CT Scan Report ---
CT SCAN OF THE BRAIN WITHOUT IV CONTRAST CLINICAL HISTORY: Trauma. COMPARISON STUDY: CT of the brain dated 04/14/2024 TECHNIQUE: Unenhanced CT scan of the brain is performed from the vertex to the skull base. Images are reviewed in the axial, sagittal, coronal planes. A dose lowering technique was utilized adhering to the principles of ALARA. CT DOSE: 1448.85 mGy.cm FINDINGS: Brain parenchyma: An approximately 4 x 3.5 cm hyperdense mass along the posterior midline falx at the vertex is again seen on image #25. There is surrounding edema with effacement of the overlying corti juice sulci and approximately 6 mm of leftward midline shift at the vertex. There is age-related involu tional change noting mild subcortical and periventricular microangiopathic disease. There is no hemor rhage or evidence of acute territorial ischemia by CT criteria. No extra-axial fluid collection is se en. Ventricles, sulci, cisterns: Prominent secondary to involutional change. Intracranial vasculature: There is atherosclerotic calcification of the cavernous carotid and vertebr al arteries. Calvarium: Unremarkable. Sinuses and mastoids: The visualized paranasal sinuses are clear. The mastoid air cells are well pneu matized. Orbits: The bony orbits are grossly intact. There are bilateral ocular lens implants. IMPRESSION: 1. There is no evidence of hemorrhage or acute territorial ischemia by CT criteria. 2. An approximately 4 x 3.5 cm hyperdense mass is again seen along the left posterior falx at the gilberto douglas. This is typical for a meningioma, and there is associated mass effect/edema. This is similar in appearance to prior studies. ACT 112: Negative or not required by law. Electronically signed by: Cesar Davila M.D. 08/26/2025 4:03 PM
[2025-08-26] MEDS: SODIUM CHLORIDE 0.9% 500 ML IV ONE (16:27)
--- NOTE | 2025-08-26 18:19 | History & Physical Report ---
Date of Service August 26, 2025 Assessment & Plan (1) BPV (benign positional vertigo): (2) Minor head trauma: (3) Chronic venous thrombosis: (4) Warfarin anticoagulation: (5) Ambulatory dysfunction: Plan Patient 84-year-old female who continues to live independently sustained a minor head trauma after stumbling about a week ago presents with new onset of vertigo. Physical exam and symptoms highly consistent with BPV, suspect minor head trauma may have loosened some inner ear crystals causing the vertigo. Observe in the [facility] unit Schedule meclizine and Valium to manage her vertiginous symptoms Consult PT OT for evaluation and [place] maneuvers Continue home medications as prescribed Monitor INR, currently therapeutic, continue her usual warfarin dosing Case management for discharge planning Patient did describe some sweats and generalized malaise over the last week. Will check a respiratory viral panel. Discussed advanced directives, patient request DNR/DNI History of Present Illness Chief Complaint: Dizziness with position changes Primary Care Provider: Kim Miles PA-C Patient is 84-year-old female who presented to the emergency room with acute onset of vertigo within the last 24 hours. In the emergency room she reported that she did stumble and hit her head about a week ago. She is on warfarin and was concerned that she may have a bleed. She also knows she has a meningioma in the brain. Evaluation in the emergency room was negative for any acute fractures. Head imaging was negative for acute hemorrhage. INR was therapeutic. There is no other significant laboratory abnormalities. However, when they attempted to ambulate the patient she had extreme dizziness and was unable to ambulate safely. She was referred to our service for further evaluation. Time my evaluation, the patient is feeling a little bit better when she is lying still. She states that she stumbled about a week ago. She said she only slightly hit her head on the wall as she caught herself. She did not notice any exterior bruising or swelling and that is why she did not seek medical attention at that time. She states that she did have a little bit of a headache since that event. She states that a couple nights she did have some sweats but no documented fever. No cough or cold symptoms, no congestion, no chest pain, no shortness of breath. She states her appetite has been down over the last week due to poor appetite. No changes in her bowel or bladder habits. Came to the ER today because she had this acute onset of vertigo. She states she is spinning around and like she is on a [id number]. She noticed that definitely worsens when she changes positions. She states if she stays still in 1 position the vertigo eventually slows down and clears up. She states that she had a little bit of right arm pain with this vertigo today and this really prompted her to seek attention. She denies any cervical spine pain. Allergies Allergy/AdvReac Type Severity Reaction Status Date / Time nitroglycerin AdvReac Unknown see comment Verified 02/05/23 18:33 Home Medications Medication Instructions Recorded Confirmed Type calcium ER 600 mg (as carb,cit)-D3 1 tab PO BID 07/30/19 04/14/24 History 12.5 mcg (500 unit) tablet, ext.rel (Citracal-D3 Slow Release) fluticasone propionate 50 2 spray intranasal QAM 07/30/19 04/14/24 History mcg/actuation nasal spray,suspension multivitamin 1 tab PO QAM 07/30/19 04/14/24 History paroxetine HCl 10 mg tablet 30 mg PO DAILY 07/30/19 04/14/24 History riociguat 2 mg tablet (Adempas) 2 mg PO TID 07/30/19 04/14/24 History simvastatin 20 mg tablet 20 mg PO HS 07/30/19 04/14/24 History warfarin 5 mg tablet 2.5 mg PO .Saturday07/30/19 04/14/24 History warfarin 5 mg tablet 5 mg PO .,SAT,,F,S,ALONSO 07/30/19 04/14/24 History ascorbic acid (vitamin C) 500 mg 500 mg PO BID 05/09/21 04/14/24 History tablet (Vitamin C) methylcellulose (with sugar) oral 1 tbsp PO DAILY 05/09/21 04/14/24 History powder (Citrucel (sucrose) oral powder) sodium chloride 0.65 % nasal spray 2 spray intranasal QID PRN Nasal 05/09/21 04/14/24 History aerosol Congestion potassium chloride 10 mEq 10 meq PO DAILY 02/05/23 04/14/24 History tablet,extended release(part/cryst) (Klor-Con M) torsemide 5 mg tablet 0.5 mg PO DAILY 02/05/23 04/14/24 History Past Med/Surg History Problem List Warfarin anticoagulation Chronic venous thrombosis Minor head trauma BPV (benign positional vertigo) History of cerebral meningioma (Acute) Paresthesia (Acute) Generalized pain (Acute) Atypical chest pain (Acute) Generalized weakness (Acute) Chest pain Generalized weakness Effusion, right knee Acute pain of right knee (Acute) Ambulatory dysfunction (Acute) Bilateral lower extremity pain (Acute) Feeling weak (Acute) Effusion of knee joint right (Acute) Encounter for pre-operative examination Dyslipidemia (Chronic) Diverticular disease of colon (Chronic) Pulmonary nodule (Chronic) "RUL 6 mm, CT 06/14/17 and 05/09/18." History of pulmonary embolism (Chronic) per pt d/t not being active? 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 Abbott Family History Father Family hx of colon cancer Other Family history non-contributory No family history of adverse response to anesthesia Social History Smoking Status: Never smoker Second Hand Exposure: Yes; Do You Dip or Chew Tobacco: No; Hx Alcohol Use: No Hx Substance Use: No Preferred Language: Sammarinese Communication Ability: Effective Stopper Maker Required: No Beliefs That Will Affect Care: None Current Living Situation: Family Current Living Situation Comment: lives with sister Feels Safe at Home: Yes Assistive Devices: Cane and Walker Review of Systems Review of Systems: Pertinent positive and negative review of systems as mentioned in the HPI Physical Exam 2 Physical Exam: Constitutional: Alert, nontoxic HEENT: Mucous membranes moist. Sclera clear Neck: Soft, no adenopathy Lungs: Clear to auscultation, decreased, no wheezes rales or rhonchi CV: S1-S2, regular Abdomen: Soft, nontender, nondistended Extremities: No significant edema Musculoskeletal: No significant joint tenderness Neuro: No focal deficits, significant vertigo with [place]-Hallpike maneuver when sitting up. Also reproduction of vertigo when laying back and looking to the left Psych: Cooperative, normal mood Results & Data Results & Data Vital Signs (Past 12 Hours) Vital Signs Temp Pulse Pulse Resp BP BP Pulse Ox 08/26/25 17:00 73 18 141/94 H 93 08/26/25 16:00 66 20 148/62 H 94 08/26/25 15:53 68 16 148/62 H 97 08/26/25 14:01 84 18 141/81 H 96 08/26/25 14:01 36.5 C 84 18 141/81 H 96 O2 Del Method 08/26/25 17:00 Room Air 08/26/25 16:00 Room Air 08/26/25 15:53 Room Air 08/26/25 14:01 Room Air 08/26/25 14:01 Room Air Diagnostic Findings Reviewed imaging, laboratory and diagnostic studies. Pertinent findings as below. CBC stable within normal ranges INR 2.8 Electrolytes within normal range Creatinine 0.53 Nonfasting glucose 109 LFTs within normal limits Troponin 4.3 Urinalysis unremarkable for signs of infection Code Status & VTE Plan VTE Prophylaxis Plan VTE Prophylaxis will be ordered: No Reason for no VTE drug order: Contraindicated
[2025-08-26 20:03] LABS: Chlamydia pneumoniae PCR Not Detected (NotDetected); Coronavirus 229E PCR Not Detected (NotDetected); Coronavirus CoV-2 (COVID19)PCR Not Detected (NotDetected); Coronavirus HKU1 PCR Not Detected (NotDetected); Coronavirus NL63 PCR Not Detected (NotDetected); Coronavirus OC43PCR Not Detected (NotDetected); Human Metapneumovirus PCR Not Detected (NotDetected); Parainfluenza Virus 1 PCR Not Detected (NotDetected); Parainfluenza Virus 2 PCR Not Detected (NotDetected); Parainfluenza Virus 3 PCR Not Detected (NotDetected); Parainfluenza Virus 4 PCR Not Detected (NotDetected); Respiratory Syncytial VirusPCR Not Detected (NotDetected); Rhinovirus/Enterovirus PCR Not Detected (NotDetected)
[2025-08-26] MEDS ORDERED: ONDANSETRON INJ 2 MG/ML 2 ML VIAL IV PRN (20:46)
[2025-08-26] MEDS ORDERED: ALUMINUM/MAGNESIUM SUSP 30 ML UDC PO PRN (20:46)
[2025-08-26] MEDS ORDERED: SODIUM CHLORIDE 0.65% NA SOLN 45 ML (OCEAN) PRN (20:46)
[2025-08-26] MEDS: MECLIZINE HCL 25 MG TAB PO SCH (23:09)
[2025-08-26] MEDS: SIMVASTATIN 20 MG TAB PO SCH (23:09)
[2025-08-26] MEDS: WARFARIN SOD 5 MG TAB PO SCH (23:19)
[2025-08-27 06:34] LABS: INR 2.7 (0.9-1.1); Prothrombin Time 27.1 Seconds (9.0-12.0)
[2025-08-27] MEDS: MoRPHine SULFATE 2 MG/ML CARP IV STA (07:05)
[2025-08-27 07:28] LABS: Hematocrit (blood only) 44.2 % (37.0-47.0); Hemoglobin 15.0 g/dl (12.0-16.0); Immature Granulocytes # (auto) 0.01 K/uL (0.01-0.20); Immature Granulocytes % (auto) 0.1 %; Mean Corpuscular Hemoglobin 32.4 pg (25.0-34.0); Mean Corpuscular Volume 95.5 fL (80.0-100.0); Platelet Count 289 K/uL (130-400); RDW Standard Deviation 46.4 fL (36.4-46.3); Red Blood Count 4.63 M/uL (4.20-5.40); White Blood Count 6.94 K/ul (4.8-10.8)
[2025-08-27 07:54] LABS: Anion Gap 11.0 (3-11); Blood Urea Nitrogen 8.0 mg/dl (6-23); Calcium 9.6 mg/dl (8.6-10.3); Carbon Dioxide 24.0 mmol/L (21-32); Chloride 106.0 mmol/L (98-107); Creatinine Clr Calc Pharmacy 69.6 ml/min; Glucose 84.0 mg/dl (70-99(Fasting)); Magnesium 2.0 mg/dl (1.7-2.4); Potassium 4.2 mmol/L (3.5-5.1); Sodium 141.0 mmol/L (136-145)
[2025-08-27] MEDS: POTASSIUM CHLORIDE 10 MEQ TABCR PO SCH (08:17)
[2025-08-27] MEDS: TORSEMIDE 10 MG TAB PO SCH (08:17)
--- NOTE | 2025-08-27 16:28 | Hospitalist Progress Note ---
Date of Service August 27, 2025 Assessment & Plan (1) BPV (benign positional vertigo): (2) Minor head trauma: (3) Chronic venous thrombosis: (4) Warfarin anticoagulation: (5) Ambulatory dysfunction: Plan Patient with benign positional vertigo has responded well to meclizine Reviewed therapy notes, recommending return to home Patient had acute abdominal pain. This makes her hesitant to go home here yet today. Told her we would watch her overnight make sure that she has a good night here with anticipated discharge tomorrow. Continue warfarin and monitor INR Admission and Anticipated Discharge Date Admission Date: August 26, 2025 Subjective Patient reports that her vertigo was gone was completely resolved. Severe sharp abdominal pain in the middle the night. It resolved within about 30 minutes. Unfortunately she states that the morphine they gave her really caused her to be kind of woozy and feel unwell throughout the day today. She is starting to feel little bit better now that we are getting to mid afternoon. Physical Exam Physical Exam: Constitutional: Alert, nontoxic HEENT: Mucous membranes moist. Lungs: Clear to auscultation, decreased, no wheezes rales or rhonchi CV: S1-S2, regular Abdomen: Soft, nontender, nondistended Extremities: No significant edema Neuro: No focal deficits Psych: Cooperative, normal mood Results & Data Results & Data Vital Signs (Past 12 Hours) Vital Signs Temp Pulse Pulse Resp BP Pulse Ox O2 Del Method 08/27/25 15:27 36.6 C 96 H 18 132/76 94 Room Air 08/27/25 15:04 36.6 C 92 H 17 96 Room Air 08/27/25 14:17 83 19 103/51 L 94 Room Air 08/27/25 13:23 83 17 108/78 92 Room Air 08/27/25 13:00 82 19 93 Room Air 08/27/25 08:00 78 16 138/68 96 Room Air 08/27/25 06:00 77 16 94 Room Air 08/27/25 05:00 77 16 119/65 96 Room Air Diagnostic Findings Reviewed imaging, laboratory and diagnostic studies. Pertinent findings as below. CBC stable INR 2.7 Electrolytes within normal range Creatinine 0.64 Respiratory viral panel negative Personally reviewed EKG from this morning. Sinus rhythm with PACs
[2025-08-27] MEDS: ACETAMINOPHEN 325 MG TAB PO PRN (20:16)
--- NOTE | 2025-08-27 21:41 | Electrocardiogram Report ---
Test Reason : Blood Pressure : */* mmHG Vent. Rate : 76 BPM Atrial Rate : 76 BPM P-R Int : 190 ms QRS Dur : 84 ms QT Int : 400 ms P-R-T Axes : 85 89 55 degrees QTcB Int : 450 ms Sinus rhythm with Premature atrial complexes Low voltage QRS Nonspecific T wave abnormality When compared with ECG of 14-Apr-2024 13:47, Premature ventricular complexes are no longer Present Confirmed by Julio Galarza ([id number]) on 08/27/2025 9:41:13 PM Referred By: Confirmed By: Julio Galarza
--- NOTE | 2025-08-27 21:42 | Electrocardiogram Report ---
Test Reason : Blood Pressure : */* mmHG Vent. Rate : 77 BPM Atrial Rate : 77 BPM P-R Int : 184 ms QRS Dur : 86 ms QT Int : 388 ms P-R-T Axes : 118 87 66 degrees QTcB Int : 439 ms Poor data quality, interpretation may be adversely affected Sinus rhythm with Premature atrial complexes T wave abnormality, consider anterior ischemia Abnormal ECG When compared with ECG of 26-Aug-2025 14:12, No significant change was found Confirmed by Julio Galarza ([id number]) on 08/27/2025 9:42:10 PM Referred By: REFERRED SELF Confirmed By: Julio Galarza
[2025-08-27 23:29] VITALS: RESP 16
[2025-08-28 07:07] VITALS: BP 127/67; PULSE 59; TEMP 98.2; O2SAT 91
[2025-08-28 07:52] LABS: INR 3.7 (0.9-1.1); Prothrombin Time 36.1 Seconds (9.0-12.0)
--- NOTE | 2025-08-28 11:07 | Discharge Summary ---
Discharge Summary Date of Service August 28, 2025 Principal Dx & Hospital Course #1 = Principal Diagnosis (1) BPV (benign positional vertigo): (2) Minor head trauma: (3) Chronic venous thrombosis: (4) Warfarin anticoagulation: (5) Ambulatory dysfunction: Plan Patient 84-year-old female presenting to the emergency room with dizziness and vertigo. Patient had a minor head trauma about 1 week prior. Imaging in the emergency room was negative for acute findings. Referred to our service due to the fact that she could not ambulate safely. At the time of admission patient's symptoms very consistent with BPV. Possibly a inner ear crystal loosened when she had the minor head trauma. She was started on meclizine and Valium. By the following day she had significant improvement and resolution of her dizziness. She was seen by therapies who felt as though her ambulation had now improved point where she can safely return home and resume her home therapy. She did have an acute episode of some abdominal pain her first night. This resolved without any significant intervention other than some pain medication. This caused her to have's a fair amount of fatigue, sleepiness and anxiety. Sure appetite was good she was eating well. On the day of discharge she was fatigued. However, has not slept well the last 2 nights. I believe that she will do much better at home with her sleep. Her vertigo has resolved can continue the meclizine as needed, does not need the Valium. She will follow-up with outpatient providers. During her hospitalization her INR was monitored. She continued her warfarin. She was given instruction to hold her dose tonight and check an INR on Saturday Notes For Next Care Provider Medication Changes From Visit Meclizine as needed for dizziness Admission HPI Per Admitting Provider Patient is 84-year-old female who presented to the emergency room with acute onset of vertigo within the last 24 hours. In the emergency room she reported that she did stumble and hit her head about a week ago. She is on warfarin and was concerned that she may have a bleed. She also knows she has a meningioma in the brain. Evaluation in the emergency room was negative for any acute fractures. Head imaging was negative for acute hemorrhage. INR was therapeutic. There is no other significant laboratory abnormalities. However, when they attempted to ambulate the patient she had extreme dizziness and was unable to ambulate safely. She was referred to our service for further evaluation. Time my evaluation, the patient is feeling a little bit better when she is lying still. She states that she stumbled about a week ago. She said she only slightly hit her head on the wall as she caught herself. She did not notice any exterior bruising or swelling and that is why she did not seek medical attention at that time. She states that she did have a little bit of a headache since that event. She states that a couple nights she did have some sweats but no documented fever. No cough or cold symptoms, no congestion, no chest pain, no shortness of breath. She states her appetite has been down over the last week due to poor appetite. No changes in her bowel or bladder habits. Came to the ER today because she had this acute onset of vertigo. She states she is spinning around and like she is on a [id number]. She noticed that definitely worsens when she changes positions. She states if she stays still in 1 position the vertigo eventually slows down and clears up. She states that she had a little bit of right arm pain with this vertigo today and this really prompted her to seek attention. She denies any cervical spine pain. Admission Exam Per Admitting Provider See H&P Discharge Exam Constitutional: Alert HEENT: Mucous membranes moist. Lungs: Clear to auscultation, decreased, no wheezes rales or rhonchi CV: S1-S2, regular Abdomen: Soft, nontender, nondistended Extremities: No significant edema Neuro: No focal deficits Psych: Cooperative, normal mood Updated Medication List Medication Instructions Recorded Confirmed Type calcium ER 600 mg (as carb,cit)-D3 1 tab PO BID 07/30/19 08/26/25 History 12.5 mcg (500 unit) tablet, ext.rel (Citracal-D3 Slow Release) fluticasone propionate 50 2 spray intranasal QAM PRN 07/30/19 08/26/25 History mcg/actuation nasal Congestion spray,suspension multivitamin 1 tab PO QAM 07/30/19 08/26/25 History paroxetine HCl 10 mg tablet 30 mg PO DAILY PRN Anxiety 07/30/19 08/26/25 History riociguat 2 mg tablet (Adempas) 2 mg PO TID 07/30/19 08/26/25 History simvastatin 20 mg tablet 20 mg PO HS 07/30/19 08/26/25 History warfarin 5 mg tablet 2.5 mg PO 3XWK 07/30/19 08/26/25 History warfarin 5 mg tablet 5 mg PO 4XWK 07/30/19 08/26/25 History ascorbic acid (vitamin C) 500 mg 500 mg PO BID 05/09/21 08/26/25 History tablet (Vitamin C) methylcellulose (with sugar) oral 1 tbsp PO DAILY 05/09/21 08/26/25 History powder (Citrucel (sucrose) oral powder) sodium chloride 0.65 % nasal spray 2 spray intranasal QID PRN Nasal 05/09/21 08/26/25 History aerosol Congestion meclizine 25 mg tablet 25 mg PO TID PRN dizzy #30 tabs 08/28/25 Rx Hospital Stay Data Consultations 08/26/25 17:44 ED Decision to Admit Stat Diagnostic Imagining Performed 08/26/25 14:12 CT abd pelvis IV con only Stat 08/26/25 14:13 CT head/brain wo con Stat Reviewed imaging, laboratory and diagnostic studies. Pertinent findings as below. INR 3.7 CBC stable Electrolytes stable Creatinine 0.64 Troponins negative x 2 sets Urinalysis unremarkable Respiratory viral panel negative Pending Results Patient Have Any Pending Studies at Discharge: No Discharge Instructions Given to Patient (Per Discharging Provider) You can take the meclizine as needed after a couple days if the dizziness significantly improved Hold your warfarin tonight and resume your usual dose on Saturday Get your INR checked on Saturday per your usual process Total Time Total Time Spent Total Time Spent (In Minutes): 35
== END 2025-08-28 13:32 | disposition home health service (06) ==
LOC: ED 14:00 → EDINP 14:00 → 3W 20:47